=== PATIENT | female | born 1935 | race Caucasian/White ===

== ENCOUNTER 2018-02-20 10:00 | Outpatient (RCR) | payer MEDICARE, SELFPAY ==
--- NOTE | 2018-01-04 12:15 | HMH.PTOPEV ---
Rehab Outpatient Evaluation Rehab OP Evaluation Start: 01/04/18 11:30 Freq: Status: Active Protocol: Document 01/04/18 11:30 RMARSHALL (Rec: 01/04/18 12:14 [id number] Electronically Signed By Kodi Navas OT 01/04/18 11:30 Outpatient Therapy Subjective History Subjective History Pt is an 82 year old female who reports to therapy for intial evaluation to right shoulder. Pt reports her shoulder began bothering her in fall of 2016. At this time pt had therapy and reports improvement at the right shoulder. 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 This has required her to do a lot of lifting, pulling, and pushing. Pt's shoulder started hurting again around October. Pt does demonstrate with slight decreased AROM and strength at right shoulder. Pt will continue to be seen twice a week in order to address these deficits. Chief Complaint Pain Stiff Symptom Type Ache Throb Sharp Dull Symptoms Relieved By Nothing Symptoms Aggravated By Physical Activity Lifting Prior Functional Limitations None Current Functional Limitations Reaching Lifting Housework Dressing Driving Recreation Activity Symptom Description Intermittent Activity Dependent Level of pain today (0-10) 2 Pain scale - at its best (0-10) 1 Pain scale - at its worst (0-10) 6 Shoulder/Elbow Eval Shoulder Objective Measurements Shoulder ROM Right Shoulder ROM Limitations Muscle Tone Shoulder Abduction Active Range of 125 degrees Motion (degrees) Shoulder Flexion Active Range of Motion 130 degrees (degrees) Query Text: Shoulder External Rotation Active Range 60 degrees of Motion (degrees) Shoulder Internal Rotation Active Range
== END 2018-02-20 10:01 | disposition home or self-care (01) ==
LOC: OT 10:00
PROVIDERS: Family Provider Family Medicine; Visit Provider Family Medicine
DX: M25.511 Pain in right shoulder (principal)
CPT/HCPCS: 97014; 97110; 97166; G0283

== ENCOUNTER 2018-10-04 21:00 | Observation (INO) ==
[2018-10-04 21:26] LABS: Basophils # 0.1 K/mm3 (0-0.2); Basophils % 0.9 % (0.1-2.0); Eosinophils # 0.3 K/mm3 (0.0-0.4); Eosinophils % 2.9 % (0.1-12.0); Hematocrit 38.5 % (37.0-47.0); Hemoglobin 12.1 g/dL (12.2-16.2); Lymphocytes # 3.2 K/mm3 (0.7-4.5); Lymphocytes % 37.2 % (10-50); Mean Corpuscular HGB Conc 31.5 g/dL (31.8-35.4); Mean Corpuscular Hemoglobin 30.5 pg (27.0-31.2); Mean Corpuscular Volume 96.9 fl (81-99); Mean Platelet Volume 6.9 fl (7.4-10.4); Monocytes # 0.7 K/mm3 (0.1-1.0); Neutrophils # 4.3 K/mm3 (1.8-7.8); Platelet Count 481 K/mm3 (142-424); Red Blood Count 3.97 M/mm3 (4.20-5.40); Red Cell Distribution Width 13.4 % (11.5-17.5); White Blood Count 8.5 K/mm3 (4.8-10.8)
[2018-10-04 21:45] LABS: Alanine Aminotransferase 36 U/L (12-78); Albumin Level 3.7 gm/dL (3.4-5.0); Alkaline Phosphatase 80 U/L (46-116); Anion Gap 10.4 mEq/L (5-15); Aspartate Amino Transferase 27 U/L (15-37); Bilirubin,Total 0.2 mg/dL (0.2-1.0); Blood Urea Nitrogen 23 mg/dL (7-18); Calcium 9.2 mg/dL (8.5-10.1); Carbon Dioxide 30 mmol/L (21.0-32.0); Chloride 100 mmol/L (98-107); Globulin 3.8 gm/dl (1.3-3.2); Glucose 74 mg/dL (74-106); Potassium 3.4 mmoL/L (3.5-5.1); Sodium 137 mmol/L (136-145); Total Protein,Serum 7.5 gm/dL (6.4-8.2)
--- NOTE | 2018-10-04 22:22 | Emergency Department Note ---
ED Disposition Clinical Impression: Renal insufficiency Syncope Qualifiers: Syncope type: unspecified Qualified Code(s): R55 - Syncope and collapse Chest pain Qualifiers: Chest pain type: precordial pain Qualified Code(s): R07.2 - Precordial pain Disposition: Admitted as Observation Condition on Discharge: Good - Critical Care Critical Care Time: No Attestation: On 10/04/18, the high probability of a clinically significant, sudden or life threatening deterioration of the following system(s) required my full and direct attention, intervention and personal management. The time I documented below is in addition to time spent performing reported procedures but includes the following listed in this critical care notation. Medical Decision Making - Medical Records Medical records reviewed: Yes: I reviewed the patient's medical records. - Duy Inquiry Pt receiving controlled substance: No Vital Signs: 10/04/18 21:00 10/04/18 22:28 Temperature 97.9 F Temperature Source Oral Pulse Rate [Right] 68 64 Respiratory Rate 94 H 20 Blood Pressure [Right Arm] 145/71 H 131/68 Blood Pressure Mean [Right Arm] 95 89 02 Sat by Pulse Oximetry 95 98 Oxygen Delivery Method Room Air - Lab Data Lab results reviewed: Yes: I reviewed the patient's lab results. Lab Results 10/04/18 21:13: WBC 8.5, RBC 3.97 L, Hgb 12.1 L, Hct 38.5, MCV 96.9, MCH 30.5, MCHC 31.5 L, RDW 13.4, Plt Count 481 H, MPV 6.9 L, Neut % (Auto) 51.0, Lymph % (Auto) 37.2, [place] % (Auto) 8.0, Eos % (Auto) 2.9, Baso % (Auto) 0.9, Neut # (Auto) 4.3, Lymph # (Auto) 3.2, [place] # (Auto) 0.7, Eos # (Auto) 0.3, Baso # (Auto) 0.1 10/04/18 21:13: Sodium 137, Potassium 3.4 L, Chloride 100, Carbon Dioxide 30, Anion Gap 10.4, BUN 23 H, Creatinine 1.22 H, Estimated Creat Clear 36, Estimated GFR 42 L, Est GFR ( Amer) 51 L, Glucose 74, Calcium 9.2, Total Bilirubin 0.2, AST 27, ALT 36, Alkaline Phosphatase 80, Troponin I < 0.02, Total Protein 7.5, Albumin 3.7, Globulin 3.8 H, Albumin/Globulin Ratio 1.0 L Result diagrams: 10/04/18 21:13 10/04/18 21:13 Orders (Tests/Meds): ED MEDICATIONS Generic Name Dose Route Start Last Admin Trade Name Freq PRN Reason Stop Dose Admin Sodium Chloride 10 ml 10/04/18 21:13 Saline Flush 10ml Syringe IV 11/03/18 21:12 NEEDED PRN Maintain IV Site ORDERS Category Date Time Status CT cervical spine wo con Stat Cat Scan 10/04/18 21:[address] head/brain wo con Stat Cat Scan 10/04/18 21:13 Taken XR chest 2V Stat Exams 10/04/18 21:13 Taken Urinalysis and Microscopic Stat Lab 10/04/18 21:13 Ordered 12-lead EKG Request [ECG Request by /Danyelle] Stat Y 10/04/18 21:14 Ordered - Radiology Data #1 Image(s): Chest Image Reviewed: Yes I reviewed the patient's radiology image Preliminary Findings: Normal/NAD - CT Data CT Scan: Head, C-Spine Time Received: 22:[address] Reviewed: Yes: I have viewed the radiologist's interpretation Preliminary Findings: No Fracture Seen - ECG Data Tracing #1 Normal Sinus Rhythm: Yes Ischemic changes: non-specific ST-T wave changes - Physician Consults Physician Consulted: ariadna Reason -: Admission Syncope HPI - General Chief Complaint: Syncope Stated Complaint: Syncope Time Seen by Provider: 10/04/18 21:30 Mode of Arrival: EMS Source of Information: Patient, Relative, EMS, Medical Record Limitations: No Limitations Description of Symptoms (Recalled from ER Triage Doc. by RN): Pt brought in per EMS for syncopal episode, pt states she doesnt remember what happened, states she went to stand up and became dizzy and passed out. Pt c/o "chest pressure" on the left side of her chest that she felt after she woke up. Pt denies hitting her head. Denies any other s/s. - History of Present Illness HPI narrative: pt had been doing ok and upon standing at sikh had pressure lt sided chest pain and near syncope x 3 with no sz- no def palpitation complaint: almost passed out Onset (ago): hour(s) Prodromal symptoms: chest pain Witnessed: yes - by bystander Context: standing up Current symptoms: chest pain Treatments prior to arrival: none - Related Data Home Medications Medication Instructions Recorded Confirmed Levothyroxine Sodium 25 mcg PO DAILY 10/04/18 10/04/18 [Levothyroxine 25mcg (0.025mg) Tab] Losartan Potassium 50 mg PO DAILY 10/04/18 10/04/18 dilTIAZem HCl [Diltiazem 180mg 180 mg PO DAILY 10/04/18 10/04/18 24Hr ER Cap] hydroCHLOROthiazide [HCTZ 25mg 25 mg PO DAILY 10/04/18 10/04/18 tab] Allergies Allergy/AdvReac Type Severity Reaction Status Date / Time MORPHINE Allergy Mild I-ITCHING Uncoded 08/30/17 14:32 [facility] History - Hepatitis A Screen Drug use history?: No High risk sexual behaviors?: No History of sexually transmitted infection?: No Currently employed?: No Childcare worker?: No Do you have indoor plumbing?: Yes Do you have electricity?: Yes Attestation statement:: This patient has been screened for Hepatitis A risk factors. I have reviewed the patient's past medical history: Yes Medical History: Denies:: Diabetes Mellitus Type 1, Diabetes Mellitus Type 2 - Social History Smoking Status: Never smoker Alcohol Intake: never Occupational Status: retired - Psychiatric History Expresses thoughts of harming self/others: None Suicide Plan Description: No Plan ROS Obtained: Yes All systems reviewed & no additional complaints - Constitutional Constitutional: Denies fever(s) - Eyes Eyes: Denies change in vision - ENT Ears, Nose, Mouth, and Throat: Denies sore throat - Cardiovascular Cardiovascular: Reports chest pain, Denies dyspnea, Denies radiating jaw, neck or arm pain - Respiratory Respiratory: No cough - Gastrointestinal Gastrointestingal: Denies: abdominal pain - Genitourinary Female Genitourinary: Denies hematuria - Musculoskeletal Musculoskeletal: Denies back pain, Denies neck pain - Integumentary/Breasts Skin/Breast: Denies rash - Neurologic Neurologic: Denies abnormal speech, Denies seizure-like activity, Reports syncope Physical Exam - General General appearance: alert, in no apparent distress - Head Head exam: normocephalic - Eye Eye exam: Present: PERRL, EOMI - ENT ENT exam: Present: mucous membranes dry - Neck Neck exam: Present: trachea midline, other (no bruit) - Respiratory Respiratory exam: Present: normal lung sounds bilaterally - Cardiovascular Cardiovascular exam: Present: regular rate, systolic murmur, +S4 - Abdominal Exam Abdominal exam: Present: soft - Extremities Exam Extremities exam: Present: full ROM - Neurological Exam Neurological exam: Present: alert, oriented X3, CN II-XII intact - Psychiatric Psychiatric exam: Absent: anxious - Skin Skin exam: Absent: rash
[2018-10-05 05:05] LABS: Basophils # 0.1 K/mm3 (0-0.2); Basophils % 0.8 % (0.1-2.0); Eosinophils # 0.2 K/mm3 (0.0-0.4); Eosinophils % 1.7 % (0.1-12.0); Hematocrit 35.4 % (37.0-47.0); Hemoglobin 11.3 g/dL (12.2-16.2); Lymphocytes # 2.3 K/mm3 (0.7-4.5); Lymphocytes % 25.2 % (10-50); Mean Corpuscular HGB Conc 31.9 g/dL (31.8-35.4); Mean Corpuscular Hemoglobin 30.1 pg (27.0-31.2); Mean Corpuscular Volume 94.3 fl (81-99); Mean Platelet Volume 7.3 fl (7.4-10.4); Monocytes # 0.5 K/mm3 (0.1-1.0); Monocytes % 5.4 % (1.7-9.3); Neutrophils # 6.1 K/mm3 (1.8-7.8); Neutrophils % 66.9 % (37.0-80.0); Platelet Count 422 K/mm3 (142-424); Red Blood Count 3.75 M/mm3 (4.20-5.40); Red Cell Distribution Width 13.3 % (11.5-17.5); White Blood Count 9.1 K/mm3 (4.8-10.8)
[2018-10-05 05:17] LABS: Anion Gap 11.6 mEq/L (5-15); Chol/HDL Ratio 3.6 (1-3.5); Potassium 3.6 mmoL/L (3.5-5.1)
--- NOTE | 2018-10-05 07:43 | Pharmacy Consult Notes ---
[facility] Pharmacy VTE Monitoring - Patient Demographics Admission date: 10/05/18 Report Date: 10/05/18 Time: 07:43 Allergies/Adverse Reactions: Patient Allergies MORPHINE Allergy (Mild, Uncoded 08/30/17 14:32) I-ITCHING Height: 1.68 m Weight: 62.142 kg Patient Problems: Current Active Problems Syncope (Acute) Chest pain (Acute) Renal insufficiency (Acute) - VTE Risk Labs: VTE Related Lab Results Hgb 11.3 g/dL (12.2-16.2) L 10/05/18 04:50 Hct 35.4 % (37.0-47.0) L 10/05/18 04:50 Plt Count 422 K/mm3 (142-424) 10/05/18 04:50 BUN 21 mg/dL (7-18) H 10/05/18 04:50 Creatinine 0.79 mg/dL (0.55-1.02) D 10/05/18 04:50 Estimated Creat Clear 44 mL/min (50-200) 10/05/18 04:50 VTE Risk Level: Low Risk Clinical Trial Participant: No - Prophylaxis VTE Prophylaxis Ordered?: Yes Types of VTE Prophylaxis: TEDS Knee High Location of Applied Device: Not Applicable
--- NOTE | 2018-10-05 08:38 | History & Physical Report ---
*Admission Date: 10/05/18 <Bonnie Pride 10/05/18 08:44> *Chief complaint: syncope <Bonnie Pride 10/05/18 08:44> *History of present illness: Ms. Bang is an 82-year-old female with a history of hypertension, hyperlipidemia, peptic ulcer disease, Amanda's esophagus, and Raynaud's syndrome. She states she was praying at jainism yesterday and all at once felt a little dizzy. She states she grabbed the pew and then had a syncopal episode. Family members state that she was in and out of consciousness for approximately 10 minutes. She states when the ambulance arrived she was diaphoretic and had some mild chest pressure on the left side. She denies any shortness of air or chest pain. She was brought to the emergency room for further evaluation and treatment and was admitted for monitoring overnight and a cardiology consult. This morning she states she feels fine and has had no further syncopal episodes. Her dizziness has also resolved and she has had no further chest pressure. <Bonnie Pride 10/05/18 08:44> [facility] History Medical History: Reports:: Hyperlipidemia, Hypertension Denies:: Cancer, Diabetes Mellitus Type 1, Diabetes Mellitus Type 2, MRSA <Bonnie Pride 10/05/18 08:44> Have you ever received a pneumonia vaccine?: No <Bonnie Pride 10/05/18 08:44> Have you received a flu vaccine this season?: Yes <Bonnie Pride 10/05/18 08:44> Other Medical History: Reports: Arthritis (fingers), Cataracts (Bilat), Other (PUD, Hiatal hernia, Barretts esophagus, Raynaud's syndrome) <Bonnie Pride 10/05/18 08:44> Laterality Cases: Bilateral: Cataract <Bonnie Pride 10/05/18 08:44> Other Surgeries: Yes: Appendectomy, Cardiac Catheterization, Cholecystectomy, EGD, Hernia Repair, Hysterectomy-Partial <Bonnie Pride 10/05/18 08:44> Amputation: No <Bonnie Pride 10/05/18 08:44> - *Social History Smoking Status: Never smoker <oBnnie Pride 10/05/18 08:44> Alcohol Intake: never <Bonnie Pride 10/05/18 08:44> Occupational Status: retired <Bonnie Pride 10/05/18 08:44> Travel in the last 8 weeks: None <Bonnie Prdie 10/05/18 08:44> - Psychiatric History Expresses thoughts of harming self/others: None <Bonnie Pride 10/05/18 08:44> Suicide Plan Description: No Plan <Bonnie Pride 10/05/18 08:44> *Family Hx:: Cancer, Coronary Artery Disease, Hyperlipidemia, Hypertension <Bonnie Pride 10/05/18 08:44> Review of Systems - Constitutional Reports excessive sweating, Reports weakness <Bonnie Pride 10/05/18 08:44> - Eyes Denies blurry vision, Denies double vision <Bonnie Pride 10/05/18 08:44> - ENT Denies nasal congestion, Denies sore throat <Bonnie Pride 10/05/18 08:44> - *Cardiovascular Reports chest pain (pressure on the left side), Reports excessive sweating, Reports lightheadedness, Denies shortness of breath, Denies rapid, pounding, or irregular heartbeat <Bonnie Pride 10/05/18 08:44> - *Respiratory Denies cough, Denies shortness of breath <Bonnie Pride 10/05/18 08:44> - *Gastrointestinal Denies abdominal pain, Denies loose stools, Denies nausea, Denies vomiting <Bonnie Pride 10/05/18 08:44> - *Genitourinary Denies difficulty urinating, Denies painful urination <Bonnie Pride 10/05/18 08:44> - *Musculoskeletal Denies joint pain, Denies muscle cramps <Bonnie Pride 10/05/18 08:44> - *Neurologic Reports fainting, Reports dizziness, Denies abnormal speech, Denies seizure-like activity <Bonnie Pride 10/05/18 08:44> Meds Home Medications Medication Instructions Recorded Confirmed Type Levothyroxine Sodium 25 mcg PO DAILY 10/04/18 10/04/18 History [Levothyroxine 25mcg (0.025mg) Tab] Losartan Potassium 50 mg PO DAILY 10/04/18 10/04/18 History Multivit with Calcium,Iron,Min 1 tab PO DAILY 10/04/18 10/04/18 History [Multiple Vitamins For Women] Multivitamin with Minerals [Hair, 1 each PO DAILY 10/04/18 10/04/18 History Skin and Nails] dilTIAZem HCl [Diltiazem 180mg 180 mg PO DAILY 10/04/18 10/04/18 History 24Hr ER Cap] Fluticasone Propionate 2 spr INHALATION DAILY 10/05/18 10/05/18 History <Jack Morelos - 10/05/18 17:49> Allergies Allergy/AdvReac Type Severity Reaction Status Date / Time morphine Allergy Mild ITCHING Verified 10/05/18 08:13 <Jack Morelos - 10/05/18 17:49> Exam Vital signs and Labs for Last 24 Hours: Temp Pulse Resp BP Pulse Ox 97.8 F 60 16 165/66 H 98 10/05/18 12:00 10/05/18 16:00 10/05/18 12:00 10/05/18 12:00 10/05/18 12:00 Laboratory Results - last 24 hr 10/04/18 21:13: WBC 8.5, RBC 3.97 L, Hgb 12.1 L, Hct 38.5, MCV 96.9, MCH 30.5, MCHC 31.5 L, RDW 13.4, Plt Count 481 H, MPV 6.9 L, Neut % (Auto) 51.0, Lymph % (Auto) 37.2, [place] % (Auto) 8.0, Eos % (Auto) 2.9, Baso % (Auto) 0.9, Neut # (Auto) 4.3, Lymph # (Auto) 3.2, [place] # (Auto) 0.7, Eos # (Auto) 0.3, Baso # (Auto) 0.1 10/04/18 21:13: Sodium 137, Potassium 3.4 L, Chloride 100, Carbon Dioxide 30, Anion Gap 10.4, BUN 23 H, Creatinine 1.22 H, Estimated Creat Clear 36, Estimated GFR 42 L, Est GFR ( Amer) 51 L, Glucose 74, Calcium 9.2, Total Bilirubin 0.2, AST 27, ALT 36, Alkaline Phosphatase 80, Troponin I < 0.02, Total Protein 7.5, Albumin 3.7, Globulin 3.8 H, Albumin/Globulin Ratio 1.0 L 10/05/18 01:45: Troponin I < 0.02 10/05/18 04:50: Troponin I < 0.02 10/05/18 04:50: WBC 9.1, RBC 3.75 L, Hgb 11.3 L, Hct 35.4 L, MCV 94.3, MCH 30.1, MCHC 31.9, RDW 13.3, Plt Count 422, MPV 7.3 L, Neut % (Auto) 66.9, Lymph % (Auto) 25.2, [place] % (Auto) 5.4, Eos % (Auto) 1.7, Baso % (Auto) 0.8, Neut # (Auto) 6.1, Lymph # (Auto) 2.3, [place] # (Auto) 0.5, Eos # (Auto) 0.2, Baso # (Auto) 0.1 10/05/18 04:50: Sodium 137, Potassium 3.6, Chloride 102, Carbon Dioxide 27, Anion Gap 11.6, BUN 21 H, Creatinine 0.79 D, Estimated Creat Clear 44, Estimated GFR 70, Est GFR ( Amer) 85 D, Glucose 102 D, Calcium 9.0, Magnesium 1.9, Triglycerides 49, Cholesterol 171, LDL Cholesterol 114, VLDL Cholesterol 10, HDL Cholesterol 47, Cholesterol/HDL Ratio 3.6 H <Jack Morelos - 10/05/18 17:49> Temp Pulse Resp BP Pulse Ox 97.0 F L 62 18 150/90 H 97 10/05/18 08:00 10/05/18 08:00 10/05/18 08:00 10/05/18 08:00 10/05/18 08:00 Laboratory Results - last 24 hr 10/04/18 21:13: WBC 8.5, RBC 3.97 L, Hgb 12.1 L, Hct 38.5, MCV 96.9, MCH 30.5, MCHC 31.5 L, RDW 13.4, Plt Count 481 H, MPV 6.9 L, Neut % (Auto) 51.0, Lymph % (Auto) 37.2, [place] % (Auto) 8.0, Eos % (Auto) 2.9, Baso % (Auto) 0.9, Neut # (Auto) 4.3, Lymph # (Auto) 3.2, [place] # (Auto) 0.7, Eos # (Auto) 0.3, Baso # (Auto) 0.1 10/04/18 21:13: Sodium 137, Potassium 3.4 L, Chloride 100, Carbon Dioxide 30, Anion Gap 10.4, BUN 23 H, Creatinine 1.22 H, Estimated Creat Clear 36, Estimated GFR 42 L, Est GFR ( Amer) 51 L, Glucose 74, Calcium 9.2, Total Bilirubin 0.2, AST 27, ALT 36, Alkaline Phosphatase 80, Troponin I < 0.02, Total Protein 7.5, Albumin 3.7, Globulin 3.8 H, Albumin/Globulin Ratio 1.0 L 10/05/18 01:45: Troponin I < 0.02 10/05/18 04:50: Troponin I < 0.02 10/05/18 04:50: WBC 9.1, RBC 3.75 L, Hgb 11.3 L, Hct 35.4 L, MCV 94.3, MCH 30.1, MCHC 31.9, RDW 13.3, Plt Count 422, MPV 7.3 L, Neut % (Auto) 66.9, Lymph % (Auto) 25.2, [place] % (Auto) 5.4, Eos % (Auto) 1.7, Baso % (Auto) 0.8, Neut # (Auto) 6.1, Lymph # (Auto) 2.3, [place] # (Auto) 0.5, Eos # (Auto) 0.2, Baso # (Auto) 0.1 10/05/18 04:50: Sodium 137, Potassium 3.6, Chloride 102, Carbon Dioxide 27, Anion Gap 11.6, BUN 21 H, Creatinine 0.79 D, Estimated Creat Clear 44, Estimated GFR 70, Est GFR ( Amer) 85 D, Glucose 102 D, Calcium 9.0, Magnesium 1.9, Triglycerides 49, Cholesterol 171, LDL Cholesterol 114, VLDL Cholesterol 10, HDL Cholesterol 47, Cholesterol/HDL Ratio 3.6 H <Bonnie Pride - 10/05/18 08:44> I & O for Last 24 hours: Intake & Output 01/22/19 01/23/19 01/24/19 01/25/19 11:59 11:59 11:59 11:59 Intake Total 340 / 340 240 / 240 Balance 340 / 340 240 / 240 Weight 137 lb <Jack Morelos - 10/05/18 17:49> Intake & Output 10/02/18 10/03/18 10/04/18 10/05/18 11:59 11:59 11:59 11:59 Intake Total 340 / 340 Balance 340 / 340 Weight 137 lb <Bonnie Pride 10/05/18 08:44> - Constitutional no acute distress <[facility] 10/05/18 08:44> - *Routine HEENT Exam Head: Present: normocephalic <[facility] 10/05/18 08:44> Eye: Present: EOMI, PERRL <Bonnie Pride 10/05/18 08:44> ENT: Present: mucous membranes moist <Bonnie Pride 10/05/18 08:44> - *Routine Neck Exam Present: supple. Absent: carotid bruit, lymphadenopathy <Bonnie Pride 10/05/18 08:44> - *Routine Respiratory Exam Present: CTA bilaterally <[facility] 10/05/18 08:44> - *Routine Cardiovascular Exam Present: RRR <[facility] 10/05/18 08:44> - *Routine Abdominal Exam Present: soft, normoactive bowel sounds. Absent: tenderness <ShannenBonnie 10/05/18 08:44> - *Routine Extremities Exam Absent: cyanosis, clubbing, edema <[facility] 10/05/18 08:44> - *Routine Skin Exam Present: warm. Absent: rash <[facility] 10/05/18 08:44> - *Routine Neurological Exam Present: alert, oriented X3, CN II-XII intact. Absent: sensory deficit, motor deficit <ShannenBonnie 10/05/18 08:44> H&P: Result - Impressions CXR - Borderline cardiomegaly. No change with no acute finding Head CT - No acute intracranial findings CT spine - No acute fracture. Cervical spondylosis <Bonnie Pride - 10/05/18 08:44> Assessment and Plan (1) Syncope Current visit: Yes Status: Acute Qualifiers: Syncope type: unspecified Qualified Code(s): R55 - Syncope and collapse Category: Medical Code(s): R55 - Syncope and collapse (2) Renal insufficiency Current visit: Yes Status: Acute Category: Medical Code(s): N28.9 - Disorder of kidney and ureter, unspecified (3) Chest pain Current visit: Yes Status: Acute Qualifiers: Chest pain type: precordial pain Qualified Code(s): R07.2 - Precordial pain Category: Medical Code(s): R07.9 - Chest pain, unspecified (4) Hypertension Current visit: Yes Status: Chronic Category: Medical Code(s): I10 - Essential (primary) hypertension (5) Hyperlipidemia Current visit: Yes Status: Chronic Category: Medical Code(s): E78.5 - Hyperlipidemia, unspecified (6) Raynauds syndrome Current visit: Yes Status: Chronic Category: Medical Code(s): I73.00 - Raynaud's syndrome without gangrene <Bonnie Pride - 10/05/18 08:35> (1) Syncope Current visit: Yes Status: Acute Qualifiers: Syncope type: unspecified Qualified Code(s): R55 - Syncope and collapse Category: Medical Code(s): R55 - Syncope and collapse (2) Renal insufficiency Current visit: Yes Status: Acute Category: Medical Code(s): N28.9 - Disorder of kidney and ureter, unspecified (3) Chest pain Current visit: Yes Status: Acute Qualifiers: Chest pain type: precordial pain Qualified Code(s): R07.2 - Precordial pain Category: Medical Code(s): R07.9 - Chest pain, unspecified (4) Hypertension Current visit: Yes Status: Chronic Category: Medical Code(s): I10 - Essential (primary) hypertension (5) Hyperlipidemia Current visit: Yes Status: Chronic Category: Medical Code(s): E78.5 - Hyperlipidemia, unspecified (6) Raynauds syndrome Current visit: Yes Status: Chronic Category: Medical Code(s): I73.00 - Raynaud's syndrome without gangrene <Jack Morelos - 10/05/18 17:49> - Assessment and plan all Dx Assessment and Plan for all problems:: Concur with above assessment and plan. Will await echo, carotid US and cardiology consult. If work up is unremarkable, can probably discharge home later today. <Jack Morelos - 10/05/18 17:49> Awaiting echo report. We will get a carotid ultrasound. Cardiology has been consulted. <Bonnie Pride - 10/05/18 08:44>
--- NOTE | 2018-10-05 09:49 | Carotid Imaging Report ---
"Cerebrovascular Exam Indications: 780.2 Syncope and collapse. IMPRESSIONS 1. The bilateral vertebral arteries are patent with normal antegrade flow. 2. Study suggests 20-49% stenosis involving the right internal carotid artery. 3. Study suggests 20-49% stenosis involving the left internal carotid artery. History: Risk factors: Hypertension. Carotid duplex study. Complete study and Doppler flow study including spectral analysis, color and estevez scale imaging. Height: Height: 167.6cm. Height: 66in. Weight: Weight: 62.1kg. Weight: 136.7lb. Body mass index: BMI: 22.1kg/m^2. Body surface area: BSA: 1.7m^2. Location: Bedside. Patient status: Inpatient. Tables: Arterial flow: + +--------+--------+ |Location |V sys |V ed | + +--------+--------+ |Right CCA - proximal|65.2cm/s|11cm/s | + +--------+--------+ |Right CCA - distal |62.1cm/s|11.8cm/s| + +--------+--------+ |Right ECA |116cm/s |11cm/s | + +--------+--------+ |Right ICA - proximal|78.6cm/s|11.8cm/s| + +--------+--------+ |Right ICA - mid |56.6cm/s|12.6cm/s| + +--------+--------+ |Right ICA - distal |105cm/s |11cm/s | + +--------+--------+ |Right vertebral |77cm/s |12.6cm/s| + +--------+--------+ |Left CCA - proximal |76.2cm/s|12.6cm/s| + +--------+--------+ |Left CCA - distal |67.6cm/s|11.8cm/s| + +--------+--------+ |Left ECA |87.2cm/s|11.8cm/s| + +--------+--------+ |Left ICA - proximal |81.7cm/s|12.6cm/s| + +--------+--------+ |Left ICA - mid |53.4cm/s|14.1cm/s| + +--------+--------+ |Left ICA - distal |90.4cm/s|20.4cm/s| + +--------+--------+ |Left vertebral |42.2cm/s|7.4cm/s | + +--------+--------+ Velocity ratios: + + + + + + | |Right, V sys|Right, V ed|Left, V sys|Left, V ed| + + + + + + |Max ICA/dist CCA|1.69 |1.07 |1.34 |1.73 | + + + + + + (Report amended ) Electronically signed by: Didier Christopher [id number]"
--- NOTE | 2018-10-05 10:38 | Consult Report ---
History of Present Illness Consult date: 10/05/18 Requesting physician: Jack Morelos Chief complaint: Syncope Additional Medical History:: 1. HTN 2. Remote History of GI bleed felt secondary to ASA use 3. Raynaud's Syndrome 4. Hypothyroidism, on supplement 5. Syncope, 09/2018 A. [place] secondary to mild dehydration and orthostatic BP drop after prolonged sitting B. Echo, moderate Aortic insufficiency without LV enlargement. Normal LV function. History of present illness: Ms. Bang is an 82-year-old female with a history of hypertension, hyperlipidemia, peptic ulcer disease, Amanda's esophagus, and Raynaud's syndrome. She states she was praying at [employer] yesterday and all at once felt a little dizzy. She states she grabbed the pew and then had a syncopal episode. Family members state that she was in and out of consciousness for approximately 10 minutes. She states when the ambulance arrived she was diaphoretic and had some mild chest pressure on the left side. She denies any shortness of air or chest pain. She was brought to the emergency room for further evaluation and treatment and was admitted for monitoring overnight and a cardiology consult. This morning she states she feels fine and has had no further syncopal episodes. Her dizziness has also resolved and she has had no further chest pressure. The above per Bonnie Pride PA-C for Dr. Morelos. Patient regularly exercises 3 times a week including 1/2-hour on a treadmill which she had done yesterday morning without complaint. Patient is very active with no exertional symptoms. She denies diabetes or history of tobacco use. She does have one brother who has had coronary stents. EKG is sinus rhythm with no acute ST segment changes. Troponins returned normal x3. Telemetry has shown no arrhythmias. [facility] History Medical History: Reports:: Hyperlipidemia, Hypertension Denies:: Cancer, Diabetes Mellitus Type 1, Diabetes Mellitus Type 2, MRSA Have you ever received a pneumonia vaccine?: No Have you received a flu vaccine this season?: Yes Other Medical History: Reports: Arthritis (fingers), Cataracts (Bilat), Other (PUD, Hiatal hernia, Barretts esophagus, Raynaud's syndrome) Laterality Cases: Bilateral: Cataract Other Surgeries: Yes: Appendectomy, Cardiac Catheterization, Cholecystectomy, EGD, Hernia Repair, Hysterectomy-Partial Amputation: No - *Social History Smoking Status: Never smoker Alcohol Intake: never Occupational Status: retired Travel in the last 8 weeks: None - Psychiatric History Expresses thoughts of harming self/others: None Suicide Plan Description: No Plan *Family Hx:: Cancer, Coronary Artery Disease, Hyperlipidemia, Hypertension Meds Home Medications Medication Instructions Recorded Confirmed Type Levothyroxine Sodium 25 mcg PO DAILY 10/04/18 10/04/18 History [Levothyroxine 25mcg (0.025mg) Tab] Losartan Potassium 50 mg PO DAILY 10/04/18 10/04/18 History Multivit with Calcium,Iron,Min 1 tab PO DAILY 10/04/18 10/04/18 History [Multiple Vitamins For Women] Multivitamin with Minerals [Hair, 1 each PO DAILY 10/04/18 10/04/18 History Skin and Nails] dilTIAZem HCl [Diltiazem 180mg 180 mg PO DAILY 10/04/18 10/04/18 History 24Hr ER Cap] hydroCHLOROthiazide [HCTZ 25mg 25 mg PO DAILY 10/04/18 10/04/18 History tab] Fluticasone Propionate 2 spr INHALATION DAILY 10/05/18 10/05/18 History Allergies Allergy/AdvReac Type Severity Reaction Status Date / Time morphine Allergy Mild ITCHING Verified 10/05/18 08:13 Review of Systems - *Cardiovascular Reports chest pain, Reports fainting - *Respiratory Denies shortness of breath - *Gastrointestinal Denies abdominal pain, Denies loose stools, Denies nausea, Denies vomiting - *Genitourinary Denies blood in urine - *Neurologic Reports fainting, Reports dizziness, Reports weakness, Denies abnormal speech, Denies seizure-like activity Exam Vital signs and Labs for Last 24 Hours: Temp Pulse Resp BP Pulse Ox 97.0 F L 62 18 150/90 H 97 10/05/18 08:00 10/05/18 08:00 10/05/18 08:00 10/05/18 08:00 10/05/18 08:00 Laboratory Results - last 24 hr 10/04/18 21:13: WBC 8.5, RBC 3.97 L, Hgb 12.1 L, Hct 38.5, MCV 96.9, MCH 30.5, MCHC 31.5 L, RDW 13.4, Plt Count 481 H, MPV 6.9 L, Neut % (Auto) 51.0, Lymph % (Auto) 37.2, Gordon % (Auto) 8.0, Eos % (Auto) 2.9, Baso % (Auto) 0.9, Neut # (Auto) 4.3, Lymph # (Auto) 3.2, Gordon # (Auto) 0.7, Eos # (Auto) 0.3, Baso # (Aut o) 0.1 10/04/18 21:13: Sodium 137, Potassium 3.4 L, Chloride 100, Carbon Dioxide 30, Anion Gap 10.4, BUN 23 H, Creatinine 1.22 H, Estimated Creat Clear 36, Estimated GFR 42 L, Est GFR ( Amer) 51 L, Glucose 74, Calcium 9.2, Total Bilirubin 0.2, AST 27, ALT 36, Alkaline Phosphatase 80, Troponin I < 0.02, Total Protein 7.5, Albumin 3.7, Globulin 3.8 H, Albumin/Globulin Ratio 1.0 L 10/05/18 01:45: Troponin I < 0.02 10/05/18 04:50: Troponin I < 0.02 10/05/18 04:50: WBC 9.1, RBC 3.75 L, Hgb 11.3 L, Hct 35.4 L, MCV 94.3, MCH 30.1, MCHC 31.9, RDW 13.3, Plt Count 422, MPV 7.3 L, Neut % (Auto) 66.9, Lymph % (Auto) 25.2, Gordon % (Auto) 5.4, Eos % (Auto) 1.7, Baso % (Auto) 0.8, Neut # (Auto) 6.1, Lymph # (Auto) 2.3, Gordon # (Auto) 0.5, Eos # (Auto) 0.2, Baso # (Auto) 0.1 10/05/18 04:50: Sodium 137, Potassium 3.6, Chloride 102, Carbon Dioxide 27, Anion Gap 11.6, BUN 21 H, Creatinine 0.79 D, Estimated Creat Clear 44, Estimated GFR 70, Est GFR ( Amer) 85 D, Glucose 102 D, Calcium 9.0, Magnesium 1.9, Triglycerides 49, Cholesterol 171, LDL Cholesterol 114, VLDL Cholesterol 10, HDL Cholesterol 47, Cholesterol/HDL Ratio 3.6 H I & O for Last 24 hours: Intake & Output 10/02/18 10/03/18 10/04/18 10/05/18 11:59 11:59 11:59 11:59 Intake Total 340 / 340 Balance 340 / 340 Weight 137 lb - *Routine Neck Exam Present: supple. Absent: JVD, carotid bruit - *Routine Respiratory Exam Present: CTA bilaterally. Absent: accessory muscle use, rales, rhonchi, wheezes - *Routine Cardiovascular Exam Present: RRR. Absent: murmur, gallop, rubs - *Routine Abdominal Exam Present: soft. Absent: tenderness, distended, guarding - *Routine Extremities Exam Absent: edema, calf tenderness - *Routine Neurological Exam Present: alert, oriented X3, moving all extremities Assessment and Plan (1) Syncope Current visit: Yes Status: Acute Qualifiers: Syncope type: unspecified Qualified Code(s): R55 - Syncope and collapse Category: Medical Code(s): R55 - Syncope and collapse (2) Renal insufficiency Current visit: Yes Status: Acute Category: Medical Code(s): N28.9 - Disorder of kidney and ureter, unspecified (3) Chest pain Current visit: Yes Status: Acute Qualifiers: Chest pain type: precordial pain Qualified Code(s): R07.2 - Precordial pain Category: Medical Code(s): R07.9 - Chest pain, unspecified (4) Hypertension Current visit: Yes Status: Chronic Category: Medical Code(s): I10 - Essential (primary) hypertension (5) Hyperlipidemia Current visit: Yes Status: Chronic Category: Medical Code(s): E78.5 - Hyperlipidemia, unspecified (6) Raynauds syndrome Current visit: Yes Status: Chronic Category: Medical Code(s): I73.00 - Raynaud's syndrome without gangrene - Assessment and plan all Dx Assessment and Plan for all problems:: 1. Echo has been obtained with results showing moderate aortic insufficiency and normal LV size and function. 2. Symptoms sound orthostatic due to mild dehydration. 3. OK for discharge home from Cardiology standpoint. 4. Recommend 48 hr holter monitor and follow up with us in one week. 5. continue home meds.
--- NOTE | 2018-10-05 16:50 | Cardiology Report ---
PROCEDURE: 2-D M-mode and color Doppler study INDICATIONS FOR THE TEST: Chest pain + COPD Heart Murmur+ Tobacco Smoking Palpitations Fatigue Syncope+ Edema Hypertension+Diabetes Mellitus Rheumatic Fever SOB MOHR Obesity Hyperlipidemia Family History HD Additional History PATIENT INFORMATION HEIGHT: 66 WEIGHT:137 GENDER: Female B/P:138/48 2-D/M-MODE INTERPRETATION: 2-D MEASUREMENTS OBSERVED VALUES IN CMS Right Ventricular Dimension (RVDd) 1.6 Interventricular Septum (Thickness)(IVsd) 1.6 Left Ventricular Internal Dimensions(LVIDd) 5.7 Left Ventricular Posterior Wall (Thickness)(LVPWd) 0.8 Aortic Root 2.5 Aortic Cusp Separation 1.6 Left Atrial Dimensions (LAD) 4.1 2D 1. Left atrium is mildly enlarged, left ventricle is normal size, mild concentric left ventricular hypertrophy, visually estimated ejection fraction 55% with no regional wall motion abnormality. 2. The right atrium and right ventricle are normal size and contractility. 3. The aortic valve is thickened and calcified leaflet continue to display mobility. 4. The mitral and tricuspid valve leaflets are minimally thickened. 5. The pulmonic valve is poorly visualized. 6. No significant pericardial effusion noted. DOPPLER INTERROGATION: Doppler interrogation of the aortic, mitral and tricuspid valvular presence of moderate aortic, mild mitral and tricuspid regurgitation, tricuspid regurgitation jet velocity is inadequate for calculation of the right ventricular systolic pressure. Grade 1 diastolic dysfunction seen without tissue Doppler evidence of raised left atrial pressure. CONCLUSION: 1. Mildly enlarged left atrium, normal left ventricular size, mild concentric left ventricular hypertrophy, visually estimated ejection fraction 55% with no regional wall motion abnormality, grade 1 diastolic dysfunction seen without tissue Doppler evidence of raised left atrial pressure. 2. Moderate aortic, mild mitral and tricuspid regurgitation 3. No significant pericardial effusion noted.
--- NOTE | 2018-10-05 17:58 | Progress Note ---
Internal Medicine - PN: Subj *Date: 10/05/18 *Time: 17:55 Interval history: No problems through the day today. Exam Vital signs and Labs for Last 24 Hours: Temp Pulse Resp BP Pulse Ox 97.8 F 60 16 165/66 H 98 10/05/18 12:00 10/05/18 16:00 10/05/18 12:00 10/05/18 12:00 10/05/18 12:00 Laboratory Results - last 24 hr 10/04/18 21:13: WBC 8.5, RBC 3.97 L, Hgb 12.1 L, Hct 38.5, MCV 96.9, MCH 30.5, MCHC 31.5 L, RDW 13.4, Plt Count 481 H, MPV 6.9 L, Neut % (Auto) 51.0, Lymph % (Auto) 37.2, Major % (Auto) 8.0, Eos % (Auto) 2.9, Baso % (Auto) 0.9, Neut # (Auto) 4.3, Lymph # (Auto) 3.2, Major # (Auto) 0.7, Eos # (Auto) 0.3, Baso # (Auto) 0.1 10/04/18 21:13: Sodium 137, Potassium 3.4 L, Chloride 100, Carbon Dioxide 30, Anion Gap 10.4, BUN 23 H, Creatinine 1.22 H, Estimated Creat Clear 36, Estimated GFR 42 L, Est GFR ( Amer) 51 L, Glucose 74, Calcium 9.2, Total Bilirubin 0.2, AST 27, ALT 36, Alkaline Phosphatase 80, Troponin I < 0.02, Total Protein 7.5, Albumin 3.7, Globulin 3.8 H, Albumin/Globulin Ratio 1.0 L 10/05/18 01:45: Troponin I < 0.02 10/05/18 04:50: Troponin I < 0.02 10/05/18 04:50: WBC 9.1, RBC 3.75 L, Hgb 11.3 L, Hct 35.4 L, MCV 94.3, MCH 30.1, MCHC 31.9, RDW 13.3, Plt Count 422, MPV 7.3 L, Neut % (Auto) 66.9, Lymph % (Auto) 25.2, Major % (Auto) 5.4, Eos % (Auto) 1.7, Baso % (Auto) 0.8, Neut # (Auto) 6.1, Lymph # (Auto) 2.3, Major # (Auto) 0.5, Eos # (Auto) 0.2, Baso # (Auto) 0.1 10/05/18 04:50: Sodium 137, Potassium 3.6, Chloride 102, Carbon Dioxide 27, Anion Gap 11.6, BUN 21 H, Creatinine 0.79 D, Estimated Creat Clear 44, Estimated GFR 70, Est GFR ( Amer) 85 D, Glucose 102 D, Calcium 9.0, Magnesium 1.9, Triglycerides 49, Cholesterol 171, LDL Cholesterol 114, VLDL Cholesterol 10, HDL Cholesterol 47, Cholesterol/HDL Ratio 3.6 H I & O for Last 24 hours: Intake & Output 10/03/18 10/04/18 10/05/18 10/06/18 11:59 11:59 11:59 11:59 Intake Total 340 / 340 240 / 240 Balance 340 / 340 240 / 240 Weight 137 lb Radiology Reports for the Last 24 Hours: ECHOCARDIOGERAM CONCLUSION: 1. Mildly enlarged left atrium, normal left ventricular size, mild concentric left ventricular hypertrophy, visually estimated ejection fraction 55% with no regional wall motion abnormality, grade 1 diastolic dysfunction seen without tissue Doppler evidence of raised left atrial pressure. 2. Moderate aortic, mild mitral and tricuspid regurgitation 3. No significant pericardial effusion noted. CAROTID DUPLEX IMPRESSIONS 1. The bilateral vertebral arteries are patent with normal antegrade flow. 2. Study suggests 20-49% stenosis involving the right internal carotid artery. 3. Study suggests 20-49% stenosis involving the left internal carotid artery. Assessment and Plan (1) Syncope Current visit: Yes Status: Acute Qualifiers: Syncope type: unspecified Qualified Code(s): R55 - Syncope and collapse Category: Medical Code(s): R55 - Syncope and collapse (2) Renal insufficiency Current visit: Yes Status: Acute Category: Medical Code(s): N28.9 - Disorder of kidney and ureter, unspecified (3) Chest pain Current visit: Yes Status: Acute Qualifiers: Chest pain type: precordial pain Qualified Code(s): R07.2 - Precordial pain Category: Medical Code(s): R07.9 - Chest pain, unspecified (4) Hypertension Current visit: Yes Status: Chronic Category: Medical Code(s): I10 - Essential (primary) hypertension (5) Hyperlipidemia Current visit: Yes Status: Chronic Category: Medical Code(s): E78.5 - Hyperlipidemia, unspecified (6) Raynauds syndrome Current visit: Yes Status: Chronic Category: Medical Code(s): I73.00 - Raynaud's syndrome without gangrene - Assessment and plan all Dx Assessment and Plan for all problems:: Labs, ECHO, Carotid and cardiology consult reviewed and discussed with patient and family. Likely etiology of syncope was vasovagal response to hypovolemia. Renal functions are back to normal with IV hydration. She is stable to discharge home and will arrange outpt Holter as recommended by cardiology.
--- NOTE | 2018-10-05 21:26 | Discharge Summary ---
General - General Admission date:: 10/04/18 <Jack Morelos - 10/12/18 18:11> 10/04/18 <Bonnie Pride - 10/05/18 21:27> Discharge date: 10/05/18 <Bonnie Pride - 10/05/18:27> HPI HPI: Ms. Bang is an 82-year-old female with a history of hypertension, hyperlipidemia, peptic ulcer disease, Amanda's esophagus, and Raynaud's syndrome. She states she was [facility] at [employer] yesterday and all at once felt a little dizzy. She states she grabbed the pew and then had a syncopal episode. Family members state that she was in and out of consciousness for approximately 10 minutes. She states when the ambulance arrived she was diaphoretic and had some mild chest pressure on the left side. She denies any shortness of air or chest pain. She was brought to the emergency room for further evaluation and treatment and was admitted for monitoring overnight and a cardiology consult. This morning she states she feels fine and has had no further syncopal episodes. Her dizziness has also resolved and she has had no further chest pressure. <Bonnie Pride - 10/05/18 21:> Hospital Course Hospital Course: Patient's chest x-ray showed borderline cardiomegaly with no acute findings. Her head CT showed nothing acute and her spinal CT showed no fracture. Her labs showed an elevated renal function. An echo and carotid ultrasound were ordered and cardiology was consulted. Cardiology saw the patient and felt her EKG showed normal sinus with no acute ST segment changes. Her troponins all returned normal and telemetry showed no arrhythmias. They reviewed her echo which showed moderate aortic insufficiency and a normal left ventricular size and function. They felt her symptoms were orthostatic due to mild dehydration and that she would be stable for discharge with a 48-hour Holter monitor. Her carotid Doppler showed 20-49% stenosis of the right and left carotid arteries. She had no problems throughout the rest of the day. Dr. Morelos felt the likely etiology of her syncope was a vasovagal response to hypovolemia. Her renal functions returned to normal with some IV hydration and she was stable to be discharged home. She will have an outpatient Holter monitor as recommended by cardiology. <Bonnie Pride - 10/05/18 21:27> Objective Vital signs: Temp Pulse Resp BP Pulse Ox 97.9 F 67 18 159/66 H 97 10/05/18 16:00 10/05/18 16:00 10/05/18 16:00 10/05/18 16:00 10/05/18 16:00 <Jack Morelos - 10/12/18 18:11> Temp Pulse Resp BP Pulse Ox 97.9 F 67 18 159/66 H 97 10/05/18 16:00 10/05/18 16:00 10/05/18 16:00 10/05/18 16:00 10/05/18 16:00 <Bonnie Pride - 10/05/18 21:27> Narrative: - Constitutional no acute distress - *Routine HEENT Exam Head: Present: normocephalic Eye: Present: EOMI, PERRL ENT: Present: mucous membranes moist - *Routine Neck Exam Present: supple. Absent: carotid bruit, lymphadenopathy - *Routine Respiratory Exam Present: CTA bilaterally - *Routine Cardiovascular Exam Present: RRR - *Routine Abdominal Exam Present: soft, normoactive bowel sounds. Absent: tenderness - *Routine Extremities Exam Absent: cyanosis, clubbing, edema - *Routine Skin Exam Present: warm. Absent: rash - *Routine Neurological Exam Present: alert, oriented X3, CN II-XII intact. Absent: sensory deficit, motor deficit <Bonnie Pride - 10/05/18 21:27> Results Labs on day of discharge: Labs from last 24 hours 10/05/18 10/05/18 10/05/18 04:50 04:50 04:50 WBC 9.1 RBC 3.75 L Hgb 11.3 L Hct 35.4 L MCV 94.3 MCH 30.1 MCHC 31.9 RDW 13.3 Plt Count 422 MPV 7.3 L Neut % (Auto) 66.9 Lymph % (Auto) 25.2 [place] % (Auto) 5.4 Eos % (Auto) 1.7 Baso % (Auto) 0.8 Neut # (Auto) 6.1 Lymph # (Auto) 2.3 [place] # (Auto) 0.5 Eos # (Auto) 0.2 Baso # (Auto) 0.1 Sodium 137 Potassium 3.6 Chloride 102 Carbon Dioxide 27 Anion Gap 11.6 BUN 21 H Creatinine 0.79 D Estimated Creat Clear 44 Estimated GFR 70 Est GFR ( Amer) 85 D Glucose 102 D Calcium 9.0 Magnesium 1.9 Total Bilirubin AST ALT Alkaline Phosphatase Troponin I < 0.02 Total Protein Albumin Globulin Albumin/Globulin Ratio Triglycerides 49 Cholesterol 171 LDL Cholesterol 114 VLDL Cholesterol 10 HDL Cholesterol 47 Cholesterol/HDL Ratio 3.6 H 10/05/18 10/04/18 10/04/18 01:45 21:13 21:13 WBC 8.5 RBC 3.97 L Hgb 12.1 L Hct 38.5 MCV 96.9 MCH 30.5 MCHC 31.5 L RDW 13.4 Plt Count 481 H MPV 6.9 L Neut % (Auto) 51.0 Lymph % (Auto) 37.2 [place] % (Auto) 8.0 Eos % (Auto) 2.9 Baso % (Auto) 0.9 Neut # (Auto) 4.3 Lymph # (Auto) 3.2 [place] # (Auto) 0.7 Eos # (Auto) 0.3 Baso # (Auto) 0.1 Sodium 137 Potassium 3.4 L Chloride 100 Carbon Dioxide 30 Anion Gap 10.4 BUN 23 H Creatinine 1.22 H Estimated Creat Clear 36 Estimated GFR 42 L Est GFR ( Amer) 51 L Glucose 74 Calcium 9.2 Magnesium Total Bilirubin 0.2 AST 27 ALT 36 Alkaline Phosphatase 80 Troponin I < 0.02 < 0.02 Total Protein 7.5 Albumin 3.7 Globulin 3.8 H Albumin/Globulin Ratio 1.0 L Triglycerides Cholesterol LDL Cholesterol VLDL Cholesterol HDL Cholesterol Cholesterol/HDL Ratio <Bonnie Pride - 10/05/18 21:27> DS: Diagnosis - Discharge Diagnosis (1) Syncope Status: Acute (2) Renal insufficiency Status: Acute (3) Chest pain Status: Acute (4) Hypertension Status: Chronic (5) Hyperlipidemia Status: Chronic (6) Raynauds syndrome Status: Chronic <Bonnie Pride - 10/05/18 21:21> (1) Syncope Status: Acute (2) Renal insufficiency Status: Acute (3) Chest pain Status: Acute (4) Hypertension Status: Chronic (5) Hyperlipidemia Status: Chronic (6) Raynauds syndrome Status: Chronic <Jack Morelos - 10/12/18 18:11> Discharge Plan - Patient Discharge Instructions ACTIVITY: Continue current activity <Bonnie Pride - 10/05/18 21:27> DIET: continue same diet <Bonnie Pride - 10/05/18 21:27> Additional Instructions: Return to [facility] for 48 hour Holter monitor, call [phone] and ask for the respiratory department to see if one is available. <Jack Morelos - 10/12/18 18:11> Patient Instructions: DI for Syncope in Adults (Fainting), High Blood Pressure <Jack Morelos - 10/12/18 18:11> Forms: <Jack Morelos - 10/12/18 18:11> - Follow up Plan Follow up with: Jack Morelos MD [Primary Care Provider] - 2 weeks Heladio Curiel MD [Staff Physician] - 1 week <Jack Morelos - 10/12/18 18:11> Disposition: Home, Self-Care <Jack Morelos - 10/12/18 18:11> Home Medications: Home Medications Medication Instructions Recorded Confirmed Type RX: Levothyroxine Sodium 25 mcg PO DAILY 10/04/18 10/04/18 History [Levothyroxine 25mcg (0.025mg) Tab] RX: Losartan Potassium 50 mg PO DAILY 10/04/18 10/04/18 History RX: Multivit with Calcium,Iron,Min 1 tab PO DAILY 10/04/18 10/04/18 History [Multiple Vitamins For Women] RX: Multivitamin with Minerals 1 each PO DAILY 10/04/18 10/04/18 History [Hair, Skin and Nails] RX: dilTIAZem HCl [Diltiazem 180mg 180 mg PO DAILY 10/04/18 10/04/18 History 24Hr ER Cap] RX: Fluticasone Propionate 2 spr INHALATION DAILY 10/05/18 10/05/18 History <Jack Morelos - 10/12/18 18:11> Prescriptions/Medication Reconciliation: Continue RX: Levothyroxine Sodium [Levothyroxine 25mcg (0.025mg) Tab] 25 mcg PO DAILY RX: dilTIAZem HCl [Diltiazem 180mg 24Hr ER Cap] 180 mg PO DAILY RX: Multivitamin with Minerals [Hair, Skin and Nails] 1 each PO DAILY RX: Multivit with Calcium,Iron,Min [Multiple Vitamins For Women] 1 tab PO DAILY RX: Losartan Potassium 50 mg PO DAILY RX: Fluticasone Propionate 2 spr INHALATION DAILY Discontinued RX: hydroCHLOROthiazide [HCTZ 25mg tab] 25 mg PO DAILY <Jack Morelos - 10/12/18 18:11> - Additional Information Additional Information: Concur with plan for discharge. <Jack Morelos - 10/12/18 18:11>
== END 2018-10-05 18:08 | disposition home or self-care (01) ==
LOC: ER 21:00 → 2ND 21:00
PROVIDERS: ADMIT Family Medicine; ATTEND Family Medicine
DX: Z87.19 Personal history of other diseases of the digestive system; I10 Essential (primary) hypertension; E78.5 Hyperlipidemia, unspecified; I51.7 Cardiomegaly; Z82.49 Family history of ischemic heart disease and other diseases of the circulatory system; R61 Generalized hyperhidrosis; R55 Syncope and collapse; I65.23 Occlusion and stenosis of bilateral carotid arteries; Z88.6 Allergy status to analgesic agent; N28.9 Disorder of kidney and ureter, unspecified; Z79.899 Other long term (current) drug therapy; R07.9 Chest pain, unspecified; I73.00 Raynaud's syndrome without gangrene; E86.0 Dehydration
CPT/HCPCS: 36415; 70450; 71020; 71046; 72125; 80048; 80053; 80061; 83735; 84484; 85025; 93005; 93306; 93880; 99284; G0378

== ENCOUNTER → 2018-10-06 15:26 | Outpatient (CLI) | payer MEDICARE, SELFPAY | PROVIDERS: PCP Family Medicine; Visit Provider Family Medicine | DX: R55 Syncope and collapse (principal) | CPT/HCPCS: 93225 ==

== ENCOUNTER → 2018-10-30 07:02 | Outpatient (CLI) | payer MEDICARE, SELFPAY ==
[2018-10-30 09:32] LABS: Anion Gap 11.3 mEq/L (5-15); Blood Urea Nitrogen 13 mg/dL (7-18); Calcium 9.6 mg/dL (8.5-10.1); Carbon Dioxide 30 mmol/L (21.0-32.0); Chloride 99 mmol/L (98-107); Creatinine,Serum 0.87 mg/dL (0.55-1.02); Estimated Glomerular Filt Rate 63 ml/min (>60); GFR (African American) 76 ML/MIN (>60); Glucose 83 mg/dL (74-106); Potassium 4.3 mmoL/L (3.5-5.1); Sodium 136 mmol/L (136-145)
== END ==
PROVIDERS: Visit Provider Urology
DX: E78.5 Hyperlipidemia, unspecified (principal); I10 Essential (primary) hypertension; N28.9 Disorder of kidney and ureter, unspecified; R55 Syncope and collapse
CPT/HCPCS: 36415; 80048

== ENCOUNTER → 2018-11-29 07:29 | Outpatient (CLI) | payer MEDICARE, SELFPAY ==
--- NOTE | 2018-11-29 07:31 | AS_ITS ---
Renal Arterial Duplex Indications: 405.91 Unspecified renovascular hypertension. IMPRESSIONS 1. 60% or greaterstenosis involving the left renal artery. Consider CTA for further evaluation 2. The right renal artery appears normal. History: Risk factors: Hypertension. Complete renal arterial duplex. Duplex scan and Doppler flow study including spectral analysis, color and estevez scale imaging. Height: Height: 167.6cm. Height: 66in. Weight: Weight: 62.1kg. Weight: 136.7lb. Body mass index: BMI: 22.1kg/m^2. Body surface area: BSA: 1.7m^2. Location: Vascular laboratory. Patient status: Outpatient. Tables: Arterial flow: + +--------+--------+ Location V sys V ed + +--------+--------+ Right renal - proximal 101cm/s 13.1cm/s + +--------+--------+ Right renal - mid 146cm/s 31.8cm/s + +--------+--------+ Right renal - distal 107cm/s 17.8cm/s + +--------+--------+ Left renal - proximal 123cm/s 14.1cm/s + +--------+--------+ Left renal - mid 102cm/s 10.9cm/s + +--------+--------+ Left renal - distal 53.9cm/s 10.5cm/s + +--------+--------+ Right renal-origin 78.5cm/s 13.8cm/s + +--------+--------+ Left renal-origin 218cm/s 26.2cm/s + +--------+--------+ Aorta-prox 83.9cm/s -------- + +--------+--------+ Renal anatomy: + +-----+------+ Left Right + +-----+------+ Long axis 9.2cm 10.3cm + +-----+------+ Short axis 4.9cm 7.3cm + +-----+------+ Cortical thickness 1cm 1.2cm + +-----+------+ Velocity ratios: + +-----+ V sys + +-----+ Right renal/aortic 1.7 + +-----+ Left renal/aortic 2.6 + +-----+ (Report amended ) Electronically signed by: Didier Christopher [id number]
== END ==
PROVIDERS: PCP Family Medicine; Visit Provider Urology
DX: I10 Essential (primary) hypertension (principal)
CPT/HCPCS: 93976

== ENCOUNTER → 2018-12-11 13:35 | Outpatient (CLI) | payer MEDICARE, SELFPAY ==
--- NOTE | 2018-12-11 13:42 | CT_ITS ---
CT angio abdomen CLINICAL INDICATION: Centimeters report ITS.REASON: renal artery stenosis ORDERING PHYSICIAN: Hannah Tse PATIENT AGE: 83 years COMPARISON: 2010 CT abdomen pelvis TECHNIQUE: Axial images obtained with sagittal and coronal reformats. All CT scans at the facility use one or more dose reduction, viz: automated exposure control, ma/kV adjustment per patient size (including targeted exams where dose is matched to indication, i.e. head), or iterative reconstruction technique. PROCEDURE: Oral Contrast: None IV Contrast: 100 cc Optiray 350 followed x 40 mL normal saline FINDINGS: Lower thorax: No acute finding ABDOMEN: Liver. No significant findingsPrevious cholecystectomy accounts for its the slightly generous common duct & slightly generous central intrahepatic biliary radicles-appearance unchanged 2011 . Pancreas appears stable since 2011 again noting the generous common duct through the head of the pancreas as well as upper normal caliber of the pancreatic duct at head of pancreas. A stable Small spleen. Unremarkable. Adrenals unremarkable. Hiatal hernia again noted There are some scattered air-fluid levels within the small bowel as well as some liquid stool right colon suspect reflecting mild ileus versus possibly minor early enteritis conceivably Kidneys/ureters: No masses. . No hydronephrosis. Right kidney.: Nearly 6 mm x 3 mm calculus nonobstructive calculus midportion right kidney. This is was present but increased slightly since 2011 CT. generous size extrarenal pelvis again noted and unchanged. Right ureter unremarkable down to the pelvis. Left kidney.: No calculi nor obstruction. Minimal extra renal pelvis. Left ureter unremarkable. Vascular evaluation/CTA Aorta. Diffuse atherosclerotic calcification. Normal caliber aorta with no dilatation.. Calcification progressively more pronounced into the distal aorta and becomes most pronounced at level of proximal iliacs arteries. There is [id number] stenosis at the right common iliac artery more so than left. Estimate of up to 25-30% % stenosis aortic bifurcation with 40--45% stenosis at right common iliac arteries and 30-35% % stenosis at left common iliac origin.. External iliac arteries unremarkable Renal arteries show no flow limiting stenosis. The right renal artery widely patent with excellent perfusion both kidneys. The left renal artery with scant minimal calcified plaque posteriorly at its origin-yields less than 10% stenosis origin left renal artery. The celiac artery and SMA are widely patent with only scant less than 10% stenosis at the proximal SMA due to soft and calcified plaque. IMPRESSION: 1. Renal arteries. ... Widely patent bilaterally. With excellent perfusion of both kidneys ... Left renal artery. Only scant plaque with less than 10% stenosis at its origin ... Right renal artery. Widely patent/ unremarkable ... Branches of renal arteries unremarkable as well. 2. Diffuse atherosclerotic calcification aorta. More pronounced infrarenal aorta & at aortic bifurcation , where there is mild stenosis.- Estimated up to 25-30% stenosis 3. Generous calcified plaque involving proximal common iliac arteries, yieldsMild/moderate stenosis at the origin of the both common iliac arteries bilaterally . Estimate up to 40-45 % stenosis right common iliac artery origin; and 30- 35 % stenosis left common iliac artery origin 4. Other incidental observations in body of report. .. 6 mm x 3 nonobstructing calculus midportion right kidney
[2018-12-11 14:15] LABS: Blood Urea Nitrogen 11 mg/dL (7-18); Creatinine,Serum 0.77 mg/dL (0.55-1.02); Estimated Glomerular Filt Rate 72 ml/min (>60); GFR (African American) 87 ML/MIN (>60)
== END ==
PROVIDERS: PCP Family Medicine; Visit Provider Urology
DX: E78.5 Hyperlipidemia, unspecified (principal); I10 Essential (primary) hypertension; I65.29 Occlusion and stenosis of unspecified carotid artery; I70.1 Atherosclerosis of renal artery; R94.31 Abnormal electrocardiogram [ECG] [EKG]
CPT/HCPCS: 36415; 74175; 82565; 84520; Q9967

== ENCOUNTER → 2019-02-26 07:51 | Outpatient (CLI) | payer MEDICARE, SELFPAY ==
[2019-02-26 11:14] LABS: Anion Gap 10.3 mEq/L (5-15); Blood Urea Nitrogen 13 mg/dL (7-18); Calcium 9.5 mg/dL (8.5-10.1); Carbon Dioxide 29 mmol/L (21.0-32.0); Chloride 102 mmol/L (98-107); Creatinine,Serum 0.77 mg/dL (0.55-1.02); Estimated Glomerular Filt Rate 72 ml/min (>60); GFR (African American) 87 ML/MIN (>60); Glucose 81 mg/dL (74-106); Potassium 4.3 mmoL/L (3.5-5.1); Sodium 137 mmol/L (136-145)
== END ==
PROVIDERS: Visit Provider Nurse Practitioner Family
DX: I10 Essential (primary) hypertension (principal)
CPT/HCPCS: 36415; 80048

== ENCOUNTER → 2019-08-22 07:12 | Outpatient (CLI) | payer MEDICARE, SELFPAY ==
[2019-08-22 09:50] LABS: Alanine Aminotransferase 32 U/L (12-78); Albumin Level 3.6 gm/dL (3.4-5.0); Albumin/Globulin Ratio 1.1 (1.1-1.8); Alkaline Phosphatase 92 U/L (46-116); Anion Gap 10.4 mEq/L (5-15); Aspartate Amino Transferase 28 U/L (15-37); Bilirubin,Total 0.3 mg/dL (0.2-1.0); Blood Urea Nitrogen 21 mg/dL (7-18); Calcium 9.3 mg/dL (8.5-10.1); Carbon Dioxide 30 mmol/L (21.0-32.0); Chloride 102 mmol/L (98-107); Chol/HDL Ratio 3.2 (1-3.5); Cholesterol 170 mg/dL (140-200); Creatinine,Serum 0.93 mg/dL (0.55-1.02); Estimated Glomerular Filt Rate 58 ml/min (>60); GFR (African American) 70 ML/MIN (>60); Globulin 3.3 gm/dl (1.3-3.2); Glucose 77 mg/dL (74-106); HDL Cholesterol 53 mg/dL (29-89); LDL Cholesterol 108 mg/dL (0-130); Potassium 4.4 mmoL/L (3.5-5.1); Sodium 138 mmol/L (136-145); Thyroid Stimulating Hormone 3.34 uIU/ml (0.358-3.740); Total Protein,Serum 6.9 gm/dL (6.4-8.2); Triglycerides 46 mg/dL (30-200); VLDL Cholesterol 9 mg/dL (0-40)
== END ==
PROVIDERS: Visit Provider Family Medicine
DX: E78.5 Hyperlipidemia, unspecified (principal); E03.9 Hypothyroidism, unspecified; I10 Essential (primary) hypertension
CPT/HCPCS: 36415; 80053; 80061; 84443

== ENCOUNTER → 2019-08-27 07:10 | Outpatient (CLI) | payer MEDICARE, SELFPAY ==
--- NOTE | 2019-08-27 07:11 | CA_ITS ---
APPROVED REPORT EXAM: Comprehensive 2D, Doppler, and color-flow Echocardiogram Cable Maker: Alicia Silveira RDCS Ht: 5 ft 5 in Wt: 139lbs BSA: 1.70 BP: 164/76 mmHg Indications: Aortic Valve Disease, Hyperlipidemia, Hypertension/HDD 2D Dimensions LVOT 2.08 cm (M/F) 1.5-2.5 M-Mode Dimensions RVDd 1.62 cm (0.9-2.6) LVDd 5.11 cm (3.5-5.7) LVDs 3.97 cm (3.5-5.7) IVSd 1.43 cm (0.6-1.1) PWd 0.87 cm (0.6-1.1) EF (Teich) 44.70% FS 22.30% EDV (Teich) 124.40 mL ESV (Teich) 68.80 mL LV Diastology E/A Ratio 0.64 Aortic Valve LVOT Max 102.00 (70-110 cm/s) LVOT VTI 22.79 cm Mitral Valve MV A Velocity 68.00 (40-130 cm/s) MV PHT 135.00 ms Left Ventricle Left atrium is mildly enlarged, left ventricle is normal size, mild concentric left ventricular hypertrophy, visually estimated ejection fraction 55% with no regional wall motion abnormality. Grade 1 diastolic dysfunction seen without tissue Doppler evidence of raise left atrial pressure. Right Ventricle Right atrium and right ventricular mildly enlarged with normal contractility. Aortic Valve Aortic valve is thickened and calcified leaflet continue to display good mobility, there is no aortic stenosis, there is moderate aortic insufficiency. Mitral Valve Mitral valve is grossly normal, there is mild mitral regurgitation. Tricuspid Valve Tricuspid valve is grossly normal, there is mild tricuspid regurgitation, tricuspid regurgitation jet velocity is inadequate for calculation of the right ventricular systolic pressure. Pulmonic Valve Pulmonic valve is poorly visualized. Great Vessels Aortic root is upper limit of the normal. Pericardium No significant pericardial effusion noted Conclusion 1. Biatrial enlargement, normal left ventricular size, mild concentric left ventricular hypertrophy, visually estimated ejection fraction 55% with no regional wall motion abnormality, grade 1 diastolic dysfunction seen without tissue Doppler evidence of raise left atrial pressure. 2. Thickened and calcified aortic valve without aortic stenosis, there is moderate aortic insufficiency. 3. Mildly enlarged right ventricle with normal contractility. 4. Mild mitral and tricuspid regurgitation. 5. No significant pericardial effusion noted. Electronically signed by : Jose L Tubbs, 08/28/2019 06:03:09
== END ==
PROVIDERS: PCP Family Medicine; Visit Provider Physician Assistant
DX: I35.1 Nonrheumatic aortic (valve) insufficiency (principal)
CPT/HCPCS: 93306

== ENCOUNTER → 2020-05-23 07:54 | Outpatient (CLI) | payer MEDICARE, SELFPAY ==
--- NOTE | 2020-05-23 08:06 | CT_ITS ---
PROCEDURE: CT ABDOMEN PELVIS WO CON CLINICAL INDICATION: PAIN OF UPPER ABD COMPARISON: CT AGABD CT angio abdomen from 12/11/2018 TECHNIQUE: Axial images obtained with sagittal and coronal reformats. All CT scans at the facility use one or more dose reduction, viz: automated exposure control, ma/kV adjustment per patient size (including targeted exams where dose is matched to indication, i.e. head), or iterative reconstruction technique. FINDINGS: LOWER THORAX: No acute finding ABDOMEN & PELVIS: Exam is limited without IV and without oral contrast. Postsurgical changes are present at the GE junction. There is a small hiatal hernia with thickening of the GE junction. There is also new mild diffuse thickening the body of the stomach. This is nonspecific and could be due to gastritis or even neoplasm. There is also some mild thickening of the duodenum suggesting duodenitis. The liver, spleen, and adrenal glands have an unremarkable appearance. There is a 7 mm nonobstructing stone in the mid aspect of the right kidney. There is stranding of the fat anterior to the tail the pancreas. This is nonspecific and could be related to pancreatitis. Please correlate with appropriate laboratory values and clinical findings. There is mild stranding of the fat in the left upper quadrant. There is a moderate amount of retained colonic feces. There is a given history of appendectomy. There are post hysterectomy changes. There is colonic diverticulosis involving the descending colon and sigmoid colon but no evidence of diverticulitis. No acute bony anomalies. IMPRESSION: 1. Moderate thickening of the stomach greater at the fundus and body of the stomach with hiatal hernia noted along with mild thickening of the duodenum. Gastroduodenitis is a consideration. Please correlate with clinical findings. 2. There is stranding of the fat anterior to the tail the pancreas and within the left upper quadrant. This could be related to pancreatitis or could be sequela from possible gastritis. Gastric wall thickening could also be secondary to pancreatitis. Please correlate with clinical findings. 3. Constipation with colonic diverticulosis but no evidence of diverticulitis Dictated by: Didier Christopher MD 05/23/2020 11:49 Didier Christopher MD in [facility] 05/23/2020 11:49
[2020-05-23 16:07] LABS: Chloride 97 mmol/L (98-107); Potassium 3.7 mmoL/L (3.5-5.1); Sodium 134 mmol/L (136-145)
[2020-05-23 16:09] LABS: Amylase 65 U/L (30-110)
[2020-05-23 16:10] LABS: Alanine Aminotransferase 28 U/L (12-78); Albumin Level 3.8 g/dl (3.5-5.0); Albumin/Globulin Ratio 1.2 (1.1-1.8); Alkaline Phosphatase 113 U/L (38-126); Anion Gap 13.7 mEq/L (5-15); Aspartate Amino Transferase 33 U/L (14-36); Bilirubin,Total 0.3 mg/dl (0.2-1.3); Blood Urea Nitrogen 20 mg/dl (7-17); Calcium 10.2 mg/dl (8.4-10.2); Carbon Dioxide 27 mmol/L (22.0-30.0); Estimated Glomerular Filt Rate 53 ml/min (>60); GFR (African American) 64 ML/MIN (>60); Globulin 3.1 g/dL (1.3-3.2); Glucose 87 mg/dl (74-100); Lipase 135 U/L (23-300); Total Protein,Serum 6.9 g/dl (6.3-8.2)
== END ==
PROVIDERS: PCP Family Medicine; Visit Provider Family Medicine
DX: R10.10 Upper abdominal pain, unspecified (principal)
CPT/HCPCS: 36415; 74176; 80053; 82150; 83690

== ENCOUNTER 2020-05-29 15:46 | Observation (INO) | payer MEDICARE, SELFPAY ==
--- NOTE | 2020-05-29 15:58 | PC.NURSE ---
PT ARRIVED TO THE FLOOR AT THIS TIME
[2020-05-29 16:07] VITALS: BP 163/83; PULSE 73; RESP 17; TEMP 36.8; O2SAT 93; BMI 22.1
--- NOTE | 2020-05-29 16:24 | PC.NURSE ---
20g PIV started in right AC. Harpal sent to lab
--- NOTE | 2020-05-29 17:02 | CT_ITS ---
PROCEDURE: CT ABDOMEN PELVIS WO CON CLINICAL INDICATION: epigastric abdominal pain Epigastric abdominal pain, constipation COMPARISON: CT CT ABDOMEN PELVIS WO CON from 05/23/2020 TECHNIQUE: Axial images obtained with sagittal and coronal reformats. All CT scans at the facility use one or more dose reduction, viz: automated exposure control, ma/kV adjustment per patient size (including targeted exams where dose is matched to indication, i.e. head), or iterative reconstruction technique. FINDINGS: LOWER THORAX: There are atelectatic or fibrotic changes in the left lung base ABDOMEN & PELVIS: Moderate-sized hiatal hernia. Surgical clips are present in the perigastric region. Prior cholecystectomy. There is mild gastric wall thickening and mild gastric distension. The adrenal glands have an unremarkable appearance. There is some stranding of the peritoneal fat between the tail the pancreas and the posterior gastric wall similar to the previous exam. There is a 7 mm stone in the mid polar region of the right kidney. There is mild prominence of the renal pelves on both sides but no ureteral calculi evident. There is a moderate amount of retained colonic feces. Gas and stool noted within the large bowel. There is colonic diverticulosis but no evidence of diverticulitis. There is given history of appendectomy. There is moderate distention of the urinary bladder. There is mild thickening of the rectum nonspecific but could be seen with bronchitis. The bowel gas pattern is nonspecific with gas-filled loops of small and large bowel which may indicate an ileus. There are scattered small mesenteric lymph nodes. Multiple unopacified bowel loops in the abdomen or pelvis which could obscure or mimic pathology. If symptoms persist, consider repeat exam with IV and oral contrast. No acute bony findings. IMPRESSION: 1. Moderate-sized hiatal hernia. There remains mild thickening of the gastric wall in the body and fundus of the stomach and mild gastric distension. This could be inflammatory/infectious or neoplastic. Upper endoscopy may provide further evaluation. 2. There remains stranding of the fat between the tail the pancreas and the posterior gastric wall which could be related to adjacent inflammatory changes of the stomach or pancreatitis. 3. There is moderate amount of feces in the large bowel with air-fluid levels and gas-filled loops of small and large bowel which may be seen with ileus. There is also mild thickening of the rectum which could be due to nondistention or proctitis. 4. Multiple unopacified bowel loops in the abdomen or pelvis which could obscure or mimic pathology. If symptoms persist, consider repeat exam with IV and oral contrast. 5. Right nephrolithiasis Dictated by: Didier Christopher MD 05/30/2020 06:10 Didier Christopher MD in [facility] 05/30/2020 06:10
[2020-05-29 17:07] VITALS: PULSE 73; RESP 17; O2SAT 93
[2020-05-29 17:26] LABS: Basophils # 0.1 K/mm3 (0-0.2); Basophils % 0.6 % (0.1-2.0); Eosinophils # 0.1 K/mm3 (0.0-0.4); Eosinophils % 0.9 % (0.1-12.0); Hematocrit 34.7 % (37.0-47.0); Lymphocytes # 1.4 K/mm3 (0.7-4.5); Lymphocytes % 14.9 % (10-50); Mean Corpuscular HGB Conc 34.5 g/dL (31.8-35.4); Mean Corpuscular Hemoglobin 31.5 pg (27.0-31.2); Mean Corpuscular Volume 91.3 fl (81-99); Mean Platelet Volume 7.8 fl (7.4-10.4); Monocytes # 0.8 K/mm3 (0.1-1.0); Monocytes % 8.5 % (1.7-9.3); Neutrophils % 75.2 % (37.0-80.0); Platelet Count 678 K/mm3 (142-424); Red Cell Distribution Width 12.5 % (11.5-17.5); White Blood Count 9.3 K/mm3 (4.8-10.8)
[2020-05-29 17:27] LABS: Creatine Kinase 97 U/L (30-135)
[2020-05-29 17:32] LABS: Chloride 91 mmol/L (98-107); Sodium 127 mmol/L (136-145)
[2020-05-29 17:34] LABS: Amylase 75 U/L (30-110)
[2020-05-29 17:35] LABS: Alanine Aminotransferase 32 U/L (12-78); Albumin Level 3.8 g/dl (3.5-5.0); Albumin/Globulin Ratio 1.1 (1.1-1.8); Alkaline Phosphatase 124 U/L (38-126); Aspartate Amino Transferase 59 U/L (14-36); Bilirubin,Total 0.3 mg/dl (0.2-1.3); Blood Urea Nitrogen 17 mg/dl (7-17); Calcium 9.9 mg/dl (8.4-10.2); Carbon Dioxide 28 mmol/L (22.0-30.0); Creatinine Clearance Estimated 43 mL/min (50-200); Estimated Glomerular Filt Rate 53 ml/min (>60); GFR (African American) 64 ML/MIN (>60); Globulin 3.4 g/dL (1.3-3.2); Glucose 110 mg/dl (74-100); Lipase 115 U/L (23-300); Total Protein,Serum 7.2 g/dl (6.3-8.2)
[2020-05-29 17:42] LABS: Coronavirus 19 IgG Antibody Negative (Negative); Coronavirus 19 IgM Antibody Negative (Negative)
[2020-05-29 17:43] LABS: CKMB Relative Index 1.8 U/L (0-4.0); Creatine Kinase MB 1.7 ng/ml (0.0-2.03)
[2020-05-29 17:48] LABS: Troponin I < 0.01 ng/ml (0.00-0.034)
--- NOTE | 2020-05-29 18:28 | HMH.ACPN2 ---
Internal Medicine - PN: Subj *Date: 05/29/20 *Time: 18:28 Interval history: Alejandrina is an 84-year-old white female who was seen in the office on 05/22/2020 with a 1 wek history of epigastric abdominal pain. SHe reported one episode of vomiting but no coffee ground emesis. No heartburn or reflux symptoms. She was having some issues with sluggish bowels. No melena or hematochezia at that time. Laboratory work-up was remarkable for a slightly elevated white count of 12,000. Liver functions, amylase and lipase were normal. CT scan showed some thickening of the gastric wall with duodenitis and neoplasm in the differential. She was noted with colonic diverticulosis and moderate retained feces but no diverticulitis. She has a significant history of peptic ulcer disease having undergone surgery about 50 years ago and also had a documented gastric ulcer in [address] Mcneil. 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 She returned to the office today with persistent complaints of epigastric pain as well as worsening constipation despite use of stool softeners, MiraLAX, and Dulcolax suppositories at home.. States she has not had a significant bowel movement in 4 or 5 days. Family notes some increased confusion as well. She has had no fever. No vomiting. She has been able to eat and drink but appetite has been diminished. Because of her worsening pain, possible fecal impaction and increasing confusion, she has been admitted for further evaluation. Exam Vital signs and Labs for Last 24 Hours: Temp Pulse Resp BP Pulse Ox 98.3 F 73 17 163/83 H 93 L 05/29/20 16:07 05/29/20 17:07 05/29/20 17:07 05/29/20 16:07 05/29/20 17:07 Laboratory Results - last 24 hr 05/29/20 16:: WBC 9.3, RBC 3.80 L, Hgb 12.0 L, Hct 34.7 L, MCV 91.3, MCH 31.5 H, MCHC 34.5, RDW 12.5, Plt Count 678 H, MPV 7.8, Neut % (Auto) 75.2, Lymph % (Auto) 14.9, [place] % (Auto) 8.5, Eos % (Auto) 0.9, Baso % (Auto) 0.6, Neut # (Auto) 7.0, Lymph # (Auto) 1.4, [place] # (Auto) 0.8, Eos # (Auto) 0.1, Baso # (Auto) 0.1 05/29/20 16:20: Sodium 127 L, Potassium 4.0, Chloride 91 L, Carbon Dioxide 28, Anion Gap 12.0, BUN 17, Creatinine 1.00, Estimated Creat Clear 43, Estimated GFR 53 L, Est GFR ( Amer) 64, Glucose 110 H, Calcium 9.9, Total Bilirubin 0.3, AST 59 H, ALT 32, Alkaline Phosphatase 124, Total Protein 7.2, Albumin 3.8, Globulin 3.4 H, Albumin/Globulin Ratio 1.1, Amylase 75, Lipase 115 05/29/20 16:20: Total Creatine Kinase 97, CK-MB (CK-2) 1.7, CK-MB (CK-2) Rel Index 1.8, Troponin I < 0.01 05/29/20 16:20: SARS-CoV-2 IgG Ab (Rapid) Negative, SARS-CoV-2 IgM Ab (Rapid) Negative I & O for Last 24 hours: Intake & Output 05/27/20 05/28/20 05/29/20 05/30/20 11:59 11:59 11:59 11:59 Intake Total 360 / 360 Balance 360 / 360 Weight 137 lb 8 oz Narrative: She is accompanied by her daughter who contributes most of the history. She is alert and oriented and responds appropriately to questions although her answers are a bit slow. Color appears normal. Lungs are clear to auscultation. Heart is regular with no ectopy. Abdomen is soft and nondistended with moderate midepigastric tenderness to palpation. No rebound or guarding. No tenderness in the lower quadrants. Extremities show no edema. Assessment and Plan (1) Epigastric abdominal pain Current visit: Yes Status: Acute Category: Medical Code(s): R10.13 - Epigastric pain (2) History of peptic ulcer disease Current visit: Yes Status: Acute Category: Medical Code(s): Z87.11 - Personal history of peptic ulcer disease (3) Abnormal CT scan Current visit: Yes Status: Acute Category: Medical Code(s): R93.89 - Abnormal findings on diagnostic imaging of other specified body structures (4) Altered mental status Current visit: Yes Status: Acute Category: Medical Code(s): R41.82 - Altered mental status, unspecified (5) Hypertension Current visit: No Status: Chroni
[2020-05-29 20:03] VITALS: BP 167/75; PULSE 71; RESP 18; TEMP 36.7; O2SAT 95
[2020-05-29 20:21] LABS: Microscopic, Urine URINE MICROSCOPIC (MICROSCOPIC)
[2020-05-29 20:22] LABS: Appearance,Urine CLEAR (Clear); Bilirubin,Urine Negative (Negative); Blood, Urine Negative (Negative); Color,Urine YELLOW (Yellow); Glucose,Urine (UA) Negative (Negative); Ketones,Urine Negative (Negative); Leukocyte Esterase,Urine Negative (Negative); Nitrate,Urine Negative (Negative); Protein,Urine Negative (Negative); Specific Gravity, Urine <= 1.005 (1.005-1.030); Urobilinogen,Urine 0.2 EU/dl (0.2)
[2020-05-29 21:02] LABS: Bacteria,Urine Trace /lpf
[2020-05-30] VITALS (17 sets, daily range): BP systolic 114–177; BP diastolic 53–91; PULSE 63–77; RESP 16–18; TEMP 36.3–37.1; O2SAT 2–98; BMI 21.9
--- NOTE | 2020-05-30 02:54 | PC.NURSE ---
Pt has rested well this shift. Pt is A&Ox4 but does take a few seconds to answer questions. Bilateral lung sounds remain clear t/o all lung jay. Active bowel sounds in all 4 quads. Abdomen remains soft and is tender during palpation in the left and right upper quadrants. Pt refused a bath at the beginning of this shift but was reminded by this nurse that she would need to bathe prior to possible EGD in the morning. Pt verbalized understanding. 20g PIV in RAC remains patent and continues to infuse NS @ 100 mL/hr. No other acute changes or complaints this shift. Call light remains in reach. Will continue to monitor.
--- NOTE | 2020-05-30 07:29 | HMH.PHAVTE ---
[facility] Pharmacy VTE Monitoring - Patient Demographics Admission date: 05/30/20 Report Date: 05/30/20 Time: 07:29 Allergies/Adverse Reactions: Patient Allergies morphine Allergy (Mild, Verified 05/29/20 17:21) ITCHING NSAIDS (Non-Steroidal Anti-Inflamma Adverse Reaction (Severe, Verified 05/29/20 17:21) Height: 1.68 m Weight: 61.859 kg Patient Problems: Current Active Problems Epigastric abdominal pain (Acute) History of peptic ulcer disease (Acute) Abnormal CT scan (Acute) Altered mental status (Acute) - VTE Risk Labs: VTE Related Lab Results Hgb 12.0 g/dL (12.2-16.2) L 05/29/20 16:20 Hct 34.7 % (37.0-47.0) L 05/29/20 16:20 Plt Count 678 K/mm3 (142-424) H 05/29/20 16:20 BUN 17 mg/dl (7-17) 05/29/20 16:20 Creatinine 1.00 mg/dl (0.52-1.04) 05/29/20 16:20 Estimated Creat Clear 43 mL/min (50-200) 05/29/20 16:20 Was VTE Risk Assessment Performed: Yes VTE Score: 1 VTE Risk Level: Very Low Risk Clinical Trial Participant: No - Prophylaxis VTE Prophylaxis Ordered?: Yes Types of VTE Prophylaxis: TEDS Knee High
--- NOTE | 2020-05-30 07:31 | HMH.PHAINT ---
HOME MED COMPLETED USING LIST FROM [facility].
--- NOTE | 2020-05-30 08:19 | HMH.HP ---
*Admission Date: 05/30/20 <Key Kay - 05/30/20 08:19> *Chief complaint: Epigastric pain and confusion <RahulKey - 05/30/20 08:26> *History of present illness: Ms. Bang is an 84-year-old white female with history of HTN, HLP, OA, hiatal hernia, and Amanda's esophagus who was seen in the office on 05/22/2020 with a 1 wek history of epigastric abdominal pain. She reported one episode of vomiting but no coffee ground emesis. No heartburn or reflux symptoms. She was having some issues with sluggish bowels. No melena or hematochezia at that time. Laboratory work-up was remarkable for a slightly elevated white count of 12,000. Liver functions, amylase and lipase were normal. CT scan showed some thickening of the gastric wall with duodenitis and neoplasm in the differential. She was noted with colonic diverticulosis and moderate retained feces but no diverticulitis. She has a significant history of peptic ulcer disease having undergone surgery about 50 years ago and also had a documented gastric ulcer in [address] Mcneil. 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 She returned to the office yesterday with persistent complaints of epigastric pain as well as worsening constipation despite use of stool softeners, MiraLAX, and Dulcolax suppositories at home. States she has not had a significant bowel movement in 4 or 5 days. Family notes some increased confusion as well. She has had no fever. No vomiting. She has been able to eat and drink but appetite has been diminished. Because of her worsening pain, possible fecal impaction and increasing confusion, she was admitted for further evaluation. This morning she is resting comfortably in bed with daughter at bedside. She has been NPO overnight. She denies any abdominal pain, nausea, vomiting, or BM. She has been up to void normally. She answers questions appropriately. <Key Kay - 05/30/20 09:07> [facility] History I have reviewed the patient's past medical history: Yes <Key Kay 05/30/20 08:26> Medical History: Reports:: Gastrointestinal Bleed, Hiatal Hernia, Hyperlipidemia, Hypertension Denies:: Cancer, Diabetes Mellitus Type 1, Diabetes Mellitus Type 2, MRSA <Rahul,05/30/20 08:54> *Have you ever received a pneumonia vaccine?: No <Max Kay05/30/20 08:19> *Have you received a flu vaccine this season?: Yes <Max Kay05/30/20 08:19> Other Medical History: Reports: Arthritis, Cataracts, Hypothyroidism, Other <Max Kay05/30/20 08:54> Laterality Cases: Bilateral: Cataract <Rahul05/30/20 08:54> Other Surgeries: Yes: Appendectomy, Cardiac Catheterization, Cholecystectomy, EGD, Hernia Repair, Hysterectomy-Partial <Max Kay05/30/20 08:19> Amputation: No <Rahul05/30/20 08:19> Fractures: No <Rahul05/30/20 08:19> - *Social History Last grade of school completed: High school graduate <Max Kay05/30/20 08:19> Smoking Status: Never smoker <Rahul05/30/20 08:19> Alcohol Intake: never <Rahul05/30/20 08:19> Substance Use Type: denies use <Rahul05/30/20 08:19> *Occupational Status:: retired <Rahul05/30/20 08:19> Housing: house <Max Kay05/30/20 08:19> *Travel in the last 8 weeks: None <Max Kay05/30/20 08:19> Family Hx:: Cancer <Rahul05/30/20 08:19> Review of Systems - Constitutional Reports weakness, Denies fever(s), Denies increased appetite <Max Kay05/30/20 08:54> - Eyes Denies change in vision <Max Kay05/30/20 09:07> - ENT Reports dry mouth <Max Kay05/30/20 08:54> - *Cardiovascular Denies chest pain, Denies shortness of breath <Key Kay 05/30/20 08:54> - *Respiratory Denies shortness of breath <Key Kay - 05/30/20 08:54> - *Gastrointestinal Reports abdominal pain, Reports change in bowel habits, Reports constipation, Reports nausea, Denies coffee ground vomit, Denies loose stools, Denies heartburn, Denies ex
--- NOTE | 2020-05-30 10:48 | PC.NURSE ---
received report from Juan F Centeno RN
--- NOTE | 2020-05-30 11:52 | P.PN_ITS ---
[facility] Anesthesia Checklist - Patient Identification Patient Identification: Arm Band, Verbal (Name & ) - Structural Data Admitted From: Home Planned Operative Procedure/s: EGD Consent for Planned Operative Procedure(s) Verified: Yes Verified Documents: Surgical Consent, History and Physical - NPO Status Verified Time NPO: 00:00 - Chart Verification Results Verified: CBC, BMP - Additional verifications Anesthesia Reactions: No - Airway Assessment C-Spine Mobility Assessed: Yes TMJ Mobility Assessed: Yes Dentition: Dentures-good fit (Upper) - Neurological Assessment Level of Consciousness: Awake, Alert, Appropriate, Follows Commands Hx Seizures: No Numbness or tingling in extremities: No - Anesthesia Plan Anesthesia Risk discussed: Yes Anesthesia Plan: Verified ASA Class: II Anesthesia Type: MAC [facility] History I have reviewed the patient's past medical history: Yes Medical History: Reports:: Gastrointestinal Bleed, Hiatal Hernia, Hyperlipidemia, Hypertension Denies:: Cancer, Diabetes Mellitus Type 1, Diabetes Mellitus Type 2, MRSA *Have you ever received a pneumonia vaccine?: No *Have you received a flu vaccine this season?: Yes Other Medical History: Reports: Arthritis, Cataracts, Hypothyroidism, Other Anesthesia experience/problems:: No prior complications Laterality Cases: Bilateral: Cataract Other Surgeries: Yes: Appendectomy, Cardiac Catheterization, Cholecystectomy, EGD, Hernia Repair, Hysterectomy-Partial Amputation: No Fractures: No - *Social History Last grade of school completed: High school graduate Smoking Status: Never smoker Alcohol Intake: never Substance Use Type: denies use *Occupational Status:: retired Housing: house *Travel in the last 8 weeks: None Family Hx:: Cancer
--- NOTE | 2020-05-30 12:04 | HMH.PROC ---
[facility] Procedure Note Procedure Note:: Upper Endoscopy Procedure Report: Esophagogastroduodenoscopy with cold biopsies Endoscopost: Danie Romero II, MD Referring Physician: John Morelos MD Date of Procedure: May 30, 2020 Equipment: Olympus GIF 180 standard upper endoscope Sedation: MAC sedation Indications: Mrs. Bang is an 84-year-old female with the onset of pain across the epigastrium, nausea and at least 1 bout of coffee-ground emesis. Her CAT scan showed moderate thickening of the gastric wall especially in the body and fundus of the stomach. The patient does have a history of peptic ulcer disease and did have surgery at the [facility] years ago. The patient did have an EGD by Dr. Sandip Mcneil in 2010 and there was mention of an ulcer as well as Amanda's esophagus. The patient has had some chronic constipation and her CAT scan also showed obstipation/constipation and diverticular disease. The CAT scan also showed some fat stranding and inflammation adjacent to the tail of the pancreas. There was insignificant nephrolithiasis in the right kidney. The patient has had some weight loss. She reports no bloating or belching. She reports no use of NSAIDs. Her hemoglobin and hematocrit were 12.0 and 34.7. She reports no melanotic stools. Procedure: Prior to the procedure, a history and physical exam was performed, and patient's medications and allergies were reviewed. The risks, benefits and alternatives of the sedation and procedure were discussed with the patient. All questions were answered and informed consent was obtained. The patient was brought to the procedure room. Patient identification and proposed procedure were verified by the physician and the nurse. The patient was placed in a left lateral decubitus position and the scope was passed under direct vision. Throughout the procedure, the patient's blood pressure, pulse, and oxygen saturations were monitored continuously. The upper GI endoscopy was accomplished without difficulty. The patient tolerated the procedure well. Findings: The scope was passed directly into the upper esophagus and advanced to the third portion of the duodenum. The post bulbar duodenum and duodenal bulb were normal with normal mucosa and conniventes. There was mild duodenal lymphoid stasis. The scope was withdrawn through a normal duodenal bulb and pylorus into the stomach. There was some bile reflux with mild linear reactive gastropathy of the antrum. There was also retained liquid and solid food within the body and fundus suggestive of gastric dysmotility. There was widely patent pylorus. Along the lesser curvature and body of the stomach was a deep gastric ulceration with thick margins and there was abnormally thickened mucosa proximal to this in the fundus and near the cardia. Biopsies were taken from the margin of the ulceration that appeared to be 15 mm diameter. Biopsies were taken separately from the lesser curvature thickened mucosa. There was a small hiatal hernia. The scope was then withdrawn into the esophagus. There was no evidence of reflux esophagitis but there was a single tongue of salmon-colored mucosa that was biopsied to rule out short segment Amanda's esophagus. There were tertiary contractions and evidence of moderate esophageal dysmotility. The remainder of the esophageal mucosa was normal. Impression: 1. Large/deep gastric ulcer (15 mm) along lesser curvature and body of stomach with marked proximal mucosal chronic gastritis and mucosal thickening 2. Retained digestive liquid solid food?rule out gastric dysmotility 3. Bile reflux with mild linear reactive gastropathy 4. 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 Plan: I would recommend PPI therapy twice daily and I will add misoprostol. I do not think that she is using NSAIDs. I will obtain a gastrin level and CEA level. I will discussed the findings with the patient and family and follow
--- NOTE | 2020-05-30 14:17 | PC.NURSE ---
Right ac IV has infitrated. To call 2nd floor to see if need to restart or DC IV if pt is getting Discharged
--- NOTE | 2020-05-30 14:21 | PC.NURSE ---
Restarted IV with 20 ga in left forearm. Unable to draw labs with IV stick. Dc'd right AC iv. Applied 2x2 and coban to site Called lab to have them draw at BS on floor
--- NOTE | 2020-05-30 18:20 | PC.NURSE ---
late entry for 1730: daughter (Sandee) refused for pt to have last set of post op vitals taken at 1730. Daughter reports that she is a nurse and doesn't think that her mother needs them taken.
--- NOTE | 2020-06-01 07:46 | HMH.DCSUM ---
General - General Admission date:: 05/29/20 <Jack Morelos - 06/06/20 08:29> 05/29/20 <OttoAshleigh - 06/01/20 08:33> Discharge date: 05/30/20 <MenjivarAshleigh schultz - 06/01/20 08:33> HPI HPI: Ms. Bang is an 84-year-old white female with history of HTN, HLP, OA, hiatal hernia, and Amanda's esophagus who was seen in the office on 05/22/2020 with a 1 week history of epigastric abdominal pain. She reported one episode of vomiting but no coffee ground emesis and no heartburn or reflux symptoms. She was having some issues with sluggish bowelsNo and had no melena or hematochezia at that time. Laboratory work-up was remarkable for a slightly elevated white count of 12,000. Liver functions, amylase and lipase were normal. CT scan showed some thickening of the gastric wall with duodenitis and neoplasm in the differential. She was noted with colonic diverticulosis and moderate retained feces but no diverticulitis. She had a significant history of peptic ulcer disease having undergone surgery about 50 years ago and also had a documented gastric ulcer in [address] Mcneil. There was some mention of Amanda's esophagus. She returned to the office with persistent complaints of epigastric pain as well as worsening constipation despite use of stool softeners, MiraLAX, and Dulcolax suppositories at home. She stated that she had not had a significant bowel movement in 4 or 5 days. Family noted some increased confusion as well. She had no fever and no vomiting. She had been able to eat and drink but appetite was diminished. Because of her worsening pain, possible fecal impaction and increasing confusion, she was admitted for further evaluation. This following morning she was resting comfortably in bed with daughter at bedside. She had been NPO overnight. She denied any abdominal pain, nausea, vomiting, or BM. She had been up to void normally. She answered questions appropriately. <Ashleigh Menjivar - 06/01/20 08:33> Hospital Course Hospital Course: Family was concerned about increased confusion. She was felt to have some degree of dehydration as she had not been eating or drinking well. With her persistent epigastric pain being a concerning factor with an abnormal CT scan the plan was for her to have a repeat CT scan and iarrange for an EGD. She was started on maintenance IV fluids as well as IV Protonix. Dr. Romero was consulted. The following morning she had rested comfortably. She had been n.p.o. overnight for the EGD. She denied abdominal pain, nausea, vomiting, or stool. She had been up and voided normally. 05/30/[address] Romero Impression: 1. Large/deep gastric ulcer (15 mm) along lesser curvature and body of stomach with marked proximal mucosal chronic gastritis and mucosal thickening 2. Retained digestive liquid solid food?rule out gastric dysmotility 3. Bile reflux with mild linear reactive gastropathy 4. 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 Patient was started on the following as recommended by Dr. Romero: PPI therapy twice daily and to add misoprostol. To obtain a gastrin level and CEA level. To consider treatment of her obstipation (fiber bowel regimen) and possibly promotility therapy (metoclopramide). After EGD patient did well. She retained liquids without problems. She was discharged home in stable and satisfactory condition. Diet was to continue as in the hospital. She was to follow-up with Dr. Romero 06/20/[address] Morelos. Medications as per medication reconciliation sheet. <Ashleigh Menjivar - 06/01/20 08:33> Objective Vital signs: Temp Pulse Resp BP Pulse Ox 98.6 F 71 16 142/66 H 97 05/30/20 16:30 05/30/20 16:30 05/30/20 16:30 05/30/20 16:30 05/30/20 16:30 <Jack Morelos - 06/06/20 08:29> Temp Pulse Resp BP Pulse Ox 98.6 F 71 16 142/66 H 97 05/30/20 16:30 05/30/20 16:30 05/30/20 16:30 05/30/20 1
[2020-06-01 14:02] LABS: CEA 2.4 ng/mL (0.0-4.7)
[2020-06-02 18:00] LABS: Gastrin 224 pg/mL (0-115)
== END 2020-05-30 18:26 | disposition home or self-care (01) ==
PROVIDERS: Internal Medicine Gastroenterology; Admitting Provider Family Medicine; PCP Family Medicine; Visit Provider Family Medicine
PROC: 0DJ08ZZ Inspection of Upper Intestinal Tract, Via Natural or Artificial Opening Endoscopic (ICD-10-PCS; CPT 43235; principal; 2020-05-30 11:00)
DX: K25.9 Gastric ulcer, unspecified as acute or chronic, without hemorrhage or perforation (principal); R10.13 Epigastric pain; E03.9 Hypothyroidism, unspecified; I10 Essential (primary) hypertension; E78.5 Hyperlipidemia, unspecified; K22.70 Barrett's esophagus without dysplasia; K44.9 Diaphragmatic hernia without obstruction or gangrene; Z88.8 Allergy status to other drugs, medicaments and biological substances; Z88.5 Allergy status to narcotic agent; Z79.899 Other long term (current) drug therapy; D37.1 Neoplasm of uncertain behavior of stomach
CPT/HCPCS: 43239; 36415; 74176; 80053; 81001; 82150; 82378; 82550; 82553; 82941; 83690; 84484; 85025; 86328; 86677; 88305; 88342; G0378

== ENCOUNTER → 2020-07-24 08:21 | Outpatient (CLI) | payer MEDICARE, SELFPAY ==
[2020-07-24 12:12] LABS: Coronavirus 19 IgG Antibody Negative (Negative); Coronavirus 19 IgM Antibody Negative (Negative)
== END ==
PROVIDERS: Visit Provider Internal Medicine Gastroenterology
DX: Z01.818 Encounter for other preprocedural examination (principal); Z13.810 Encounter for screening for upper gastrointestinal disorder
CPT/HCPCS: 36415; 86328

== ENCOUNTER 2020-07-25 08:19 | Day surgery (SDC) | payer MEDICARE, SELFPAY ==
[2020-07-17 15:30] VITALS: BMI 22.1
--- NOTE | 2020-07-23 14:39 | SUR.PREOP ---
Pt notified of procedure time change to 930am arrive at 830am TuesdayJul 25
[2020-07-25] VITALS (7 sets, daily range): BP systolic 107–192; BP diastolic 55–82; PULSE 51–66; RESP 16–18; TEMP 36.3–36.4; O2SAT 94–99
--- NOTE | 2020-07-25 09:36 | P.PN_ITS ---
[facility] Anesthesia Checklist - Patient Identification Patient Identification: Arm Band - Structural Data Admitted From: Home Planned Operative Procedure/s: egd Consent for Planned Operative Procedure(s) Verified: Yes Verified Documents: Surgical Consent, History and Physical - NPO Status Verified Time NPO: 00:00 - Additional verifications Anesthesia Reactions: No - Airway Assessment C-Spine Mobility Assessed: Yes (mp2) TMJ Mobility Assessed: Yes Dentition: Dentures-good fit - Neurological Assessment Level of Consciousness: Awake, Alert - Anesthesia Plan Anesthesia Risk discussed: Yes Anesthesia Plan: Verified ASA Class: III Anesthesia Type: MAC [facility] History I have reviewed the patient's past medical history: Yes Medical History: Reports:: Gastrointestinal Bleed, Hiatal Hernia, Hyperlipidemia, Hypertension, Valvular Heart Disease Denies:: Cancer, Diabetes Mellitus Type 1, Diabetes Mellitus Type 2, Internal Pacemaker, MRSA, Seizures *Have you ever received a pneumonia vaccine?: No *Have you received a flu vaccine this season?: Yes Other Medical History: Reports: Arthritis, Cataracts, Hypothyroidism, Other Anesthesia experience/problems:: nac Other Surgeries: Yes: Appendectomy, Cardiac Catheterization, Cholecystectomy, EGD, Hernia Repair, Hysterectomy-Partial. No: Pacemaker Amputation: No Fractures: No - *Social History Smoking Status: Never smoker Alcohol Intake: never Substance Use Type: denies use *Occupational Status:: retired Housing: house *Travel in the last 8 weeks: None Family Hx:: Cancer
--- NOTE | 2020-07-25 09:47 | HMH.PROC ---
[facility] Procedure Note Procedure Note:: Upper Endoscopy Procedure Report: Esophagogastroduodenoscopy with cold biopsies Endoscopost: Danie Romero II, MD Referring Physician: John Morelos MD Date of Procedure: July 25, 2020 Equipment: Olympus GIF 180 standard upper endoscope Sedation: MAC sedation Indications: Mrs. Bang is an 84-year-old female who was having epigastric abdominal pain, nausea and coffee-ground emesis. Her CAT scan showed some thickening in the gastric wall. The patient had a history of peptic ulcer disease with surgery. She underwent EGD on May 30, 2020. This did show a large deep 15 mm gastric ulceration along the lesser curvature and body of the stomach with chronic gastritis. Biopsies of the margins of the ulcer were benign. The patient was placed on omeprazole and metoclopramide. She was also placed on misoprostol. The patient has had clinical improvement and is here for 8-week follow-up endoscopy to ensure healing and with repeat biopsies. Procedure: Prior to the procedure, a history and physical exam was performed, and patient's medications and allergies were reviewed. The risks, benefits and alternatives of the sedation and procedure were discussed with the patient. All questions were answered and informed consent was obtained. The patient was brought to the procedure room. Patient identification and proposed procedure were verified by the physician and the nurse. The patient was placed in a left lateral decubitus position and the scope was passed under direct vision. Throughout the procedure, the patient's blood pressure, pulse, and oxygen saturations were monitored continuously. The upper GI endoscopy was accomplished without difficulty. The patient tolerated the procedure well. Findings: The scope was passed directly into the upper esophagus and advanced to the third portion of the duodenum. The post bulbar duodenum and duodenal bulb were normal with normal mucosa and conniventes. The scope was withdrawn through a normal duodenal bulb and pylorus into the stomach. There was moderate retained digestive food (solid food) in the body and fundus) which had been seen previously. There was still evidence of the gastric ulceration along the lesser curvature in the body of the stomach proximally. This was certainly not as deep as previously but still had a 12 to 13 mm base. Biopsies were taken from the margin of the ulcer as well as the base of the ulcer. There was some mild chronic gastritis. Upon retroflexion there was a small 2 cm hiatal hernia. The scope was then withdrawn into the esophagus. There was a serrated Z-line and biopsies were obtained again to rule out intestinal metaplasia. There was a distal esophageal diverticulum and there was evidence of moderate esophageal dysmotility/presbyesophagus. Impression: 1. Gastric ulcer lesser curvature status post biopsies of margin and base 2. Gastric dysmotility with solid bezoar?rule out gastroparesis 3. Nonerosive GERD with moderate esophageal dysmotility and distal esophageal diverticulum (presbyesophagus) Plan: I will follow-up the biopsies. I would still recommend repeat surveillance EGD in another 12 weeks to ensure healing. Certainly there is the potential risk of underlying gastric adenocarcinoma. Biopsies taken and will be reviewed. I would continue the omeprazole and misoprostol as well as avoidance of NSAIDs. I would continue metoclopramide. I will discuss the findings with patient and family.
== END 2020-07-25 10:46 | disposition home or self-care (01) ==
LOC: OUTP 08:21
PROVIDERS: PCP Family Medicine; Visit Provider Internal Medicine Gastroenterology
PROC: 0DJ08ZZ Inspection of Upper Intestinal Tract, Via Natural or Artificial Opening Endoscopic (ICD-10-PCS; CPT 43235; principal; 2020-07-25 09:30)
DX: R11.2 Nausea with vomiting, unspecified (principal); K25.9 Gastric ulcer, unspecified as acute or chronic, without hemorrhage or perforation; K59.89 Other specified functional intestinal disorders; T18.2XXA Foreign body in stomach, initial encounter; K21.9 Gastro-esophageal reflux disease without esophagitis; K22.4 Dyskinesia of esophagus; Q39.6 Congenital diverticulum of esophagus; Z87.11 Personal history of peptic ulcer disease; Z79.899 Other long term (current) drug therapy
CPT/HCPCS: 43239; 88305; 88342

== ENCOUNTER → 2020-10-25 09:49 | Outpatient (CLI) | payer MEDICARE, SELFPAY ==
[2020-10-25 11:01] LABS: Coronavirus 19 IgG Antibody Positive (Negative); Coronavirus 19 IgM Antibody Negative (Negative)
== END ==
PROVIDERS: Visit Provider Internal Medicine Gastroenterology
DX: Z01.818 Encounter for other preprocedural examination (principal); Z20.822 Contact with and (suspected) exposure to COVID-19; Z86.16 Personal history of COVID-19; Z13.810 Encounter for screening for upper gastrointestinal disorder
CPT/HCPCS: 36415; 86328

== ENCOUNTER 2020-10-27 07:51 | Day surgery (SDC) | payer MEDICARE, SELFPAY ==
[2020-10-21 13:02] VITALS: BMI 22.6
[2020-10-27] VITALS (7 sets, daily range): BP systolic 105–200; BP diastolic 52–86; PULSE 49–66; RESP 16–18; TEMP 36.2–36.3; O2SAT 95–98
--- NOTE | 2020-10-27 08:51 | HMH.PROC ---
[facility] Procedure Note Procedure Note:: Upper Endoscopy Procedure Report: Esophagogastroduodenoscopy with cold biopsies Endoscopost: Danie Romero II, MD Referring Physician: John Morelos MD Date of Procedure: October 27, 2020 Equipment: Olympus GIF 180 standard upper endoscope Sedation: MAC sedation Indications: Mrs. Bang is an 84-year-old female who previously had a large and deep gastric ulceration (15 mm) along the lesser curvature and body of the stomach found in May 2020 by upper endoscopy. At that time she was experiencing epigastric pain, nausea and coffee-ground emesis. She was placed on omeprazole, misoprostol and metoclopramide. Biopsies of the margins of the ulcer were benign. She had 8-week endoscopy on July 25, 2020 and there was still a 12 mm base gastric ulcer. A CAT scan had shown thickening of the gastric wall. The patient is here for follow-up to ensure healing and because of potential for underlying gastric adenocarcinoma. The patient reports no abdominal pain, nausea or vomiting. She has had no weight loss. She reports no melena or hematemesis. Procedure: Prior to the procedure, a history and physical exam was performed, and patient's medications and allergies were reviewed. The risks, benefits and alternatives of the sedation and procedure were discussed with the patient. All questions were answered and informed consent was obtained. The patient was brought to the procedure room. Patient identification and proposed procedure were verified by the physician and the nurse. The patient was placed in a left lateral decubitus position and the scope was passed under direct vision. Throughout the procedure, the patient's blood pressure, pulse, and oxygen saturations were monitored continuously. The upper GI endoscopy was accomplished without difficulty. The patient tolerated the procedure well. Findings: The scope was passed directly into the upper esophagus and advanced to the third portion of the duodenum. The post bulbar duodenum and duodenal bulb were normal with normal mucosa and conniventes. There was mild duodenal lymphoid stasis. The scope was withdrawn through a normal duodenal bulb and pylorus into the stomach. There was bile reflux with moderate gastropathy of the antrum. There was some chronic gastritis of the body and fundus of the stomach. The lesser curvature was examined carefully and there was evidence of complete healing of the prior gastric ulceration in the proximal body and lesser curvature. Cold biopsies were taken from the antrum and lesser curvature. There was marked bile reflux. Upon retroflexion there was a small 1 to 2 cm hiatal hernia. The scope was then withdrawn into the esophagus. There was a single tongue of salmon-colored mucosa distally that was biopsied to rule out short segment Amanda's esophagus. There were strong tertiary contractions and evidence of moderate to marked esophageal dysmotility. The remainder of the esophageal mucosa was normal. Impression: 1. Nonerosive GERD with moderate to marked esophageal dysmotility and small 1 to 2 cm hiatal hernia?biopsies taken to rule out short segment Amanda's 2. Bile reflux with linear gastropathy of antrum and chronic gastritis of body and fundus but with complete healing of prior gastric ulceration Plan: I will follow-up the biopsies. There was complete healing of the prior gastric ulceration. I will discuss long-term treatment with omeprazole and/or misoprostol. I will also discuss need for promotility treatment (i.e. metoclopramide).
--- NOTE | 2020-10-27 08:58 | HMH.ANESCL ---
[facility] Anesthesia Checklist - Patient Identification Patient Identification: Arm Band - Structural Data Admitted From: Home Planned Operative Procedure/s: egd Consent for Planned Operative Procedure(s) Verified: Yes Verified Documents: Surgical Consent, History and Physical - NPO Status Verified Time NPO: 00:00 - Additional verifications Anesthesia Reactions: No - Airway Assessment C-Spine Mobility Assessed: Yes (mp2) TMJ Mobility Assessed: Yes Dentition: Good Dentition - Neurological Assessment Level of Consciousness: Awake, Alert - Anesthesia Plan Anesthesia Risk discussed: Yes Anesthesia Plan: Verified ASA Class: II Anesthesia Type: MAC [facility] History I have reviewed the patient's past medical history: Yes Medical History: Reports:: Gastrointestinal Bleed, Hiatal Hernia, Hyperlipidemia, Hypertension, Valvular Heart Disease Denies:: Cancer, Diabetes Mellitus Type 1, Diabetes Mellitus Type 2, Internal Pacemaker, MRSA, Seizures *Have you ever received a pneumonia vaccine?: No *Have you received a flu vaccine this season?: Yes Other Medical History: Reports: Arthritis, Cataracts, Hypothyroidism, Other Anesthesia experience/problems:: nac Other Surgeries: Yes: Appendectomy, Cardiac Catheterization, Cholecystectomy, EGD, Hernia Repair, Hysterectomy-Partial. No: Pacemaker Amputation: No Fractures: No - *Social History Last grade of school completed: High school graduate Smoking Status: Never smoker Alcohol Intake: never Substance Use Type: denies use *Occupational Status:: retired Housing: house *Travel in the last 8 weeks: None Family Hx:: No significant family history
== END 2020-10-27 09:44 | disposition home or self-care (01) ==
LOC: OUTP 07:52
PROVIDERS: PCP Family Medicine; Visit Provider Internal Medicine Gastroenterology
PROC: 0DJ08ZZ Inspection of Upper Intestinal Tract, Via Natural or Artificial Opening Endoscopic (ICD-10-PCS; CPT 43235; principal; 2020-10-27 09:00)
DX: Z09 Encounter for follow-up examination after completed treatment for conditions other than malignant neoplasm (principal); K21.9 Gastro-esophageal reflux disease without esophagitis; K22.4 Dyskinesia of esophagus; K44.9 Diaphragmatic hernia without obstruction or gangrene; K31.9 Disease of stomach and duodenum, unspecified; Z87.11 Personal history of peptic ulcer disease; I10 Essential (primary) hypertension; E03.9 Hypothyroidism, unspecified; Z88.5 Allergy status to narcotic agent; Z88.8 Allergy status to other drugs, medicaments and biological substances; Z79.899 Other long term (current) drug therapy
CPT/HCPCS: 43239; 88305; 88342

== ENCOUNTER 2021-04-19 10:10 | Emergency (ER) | payer MEDICARE, SELFPAY ==
[2021-04-19 10:40] VITALS: BP 130/73; PULSE 64; RESP 18; TEMP 36.6; O2SAT 100; BMI 24.0
[2021-04-19 11:13] VITALS: BP 130/73; PULSE 64; RESP 18; TEMP 36.6; O2SAT 100
--- NOTE | 2021-04-19 11:15 | HMH.EDUTC ---
[facility] Disposition Clinical Impression: Exposure to COVID-19 virus Disposition: Home, Self-Care Condition on Discharge: Good Instructions: COVID-19: Protecting Yourself When You're at High Risk, Preventing the Spread of Coronavirus Discharge Instructions Additional Instructions: covid swab was sent to lab, call later today for results. self isolate until test results are known to be negative Referrals: Jack Morelos MD [Primary Care Provider] - Time of Disposition: 11:23 Medical Decision Making - Duy Inquiry Pt receiving controlled substance: No Vital Signs: 04/19/21 10:40 04/19/21 11:13 Temperature 97.8 F 97.8 F Temperature Source Oral Pulse Rate 64 Pulse Rate [Right Brachial] 64 Respiratory Rate 18 18 Blood Pressure 130/73 Blood Pressure [Right Arm] 130/73 Blood Pressure Mean [Right Arm] 92 Blood Pressure Source [Right Arm] Automatic Cuff Blood Pressure Position [Right Arm] Sitting 02 Sat by Pulse Oximetry 100 Oxygen Delivery Method Room Air Orders (Tests/Meds): ORDERS Category Date Time Status Covid-19 Nasal PCR ([facility]) Routine Lab 04/19/21 10:44 Ordered [facility] HPI - General Chief complaint: Urgent Treatment Center Stated complaint: covid exposure Time Seen by Provider: 04/19/21 11:15 Mode of Arrival: Ambulatory Source of Information: Patient Limitations: No Limitations Description of Symptoms (Recalled from Triage Doc. by RN): COVID TEST D/T EXPOSURE. DENIES SYMPTOMS HEENT Symptoms (Recalled from RN notes): No Resp Symptoms (Recalled from RN notes): No Skin Symptoms (Recalled from RN notes): No MS Symptoms (Recalled from RN notes): No Functional Status (Recalled from RN notes): WNL - History of Present Illness Provider Complaint: 85 yr old female presents for covid swab. pt states no symptoms. but was exposed - Related Data Home Medications Medication Instructions Recorded Confirmed levothyroxine 25 mcg tablet 25 mcg PO DAILY tab 09/17/19 10/21/20 Multivit-Min/FA/Lycopen/Lutein 1 each PO DAILY 05/30/20 10/21/20 [Centrum Silver Tablet] Losartan Potassium [Cozaar 100mg 100 mg PO DAILY 10/21/20 10/21/20 Tablets] Psyllium Husk [Metamucil] 425 gm PO DAILY 10/21/20 10/21/20 polyethylene glycoL 3350 [Miralax 17 gm PO DAILY 10/21/20 10/21/20 Powder] Previous Rx's Medication Instructions Recorded diltiazem HCl 180 mg 180 mg PO DAILY #90 cap 09/15/20 capsule,extended release 24 hr hydrochlorothiazide 25 mg tablet 25 mg PO DAILY #90 tab 09/15/20 Allergies Allergy/AdvReac Type Severity Reaction Status Date / Time morphine Allergy Mild ITCHING Verified 09/15/20 12:05 NSAIDS (Non-Steroidal AdvReac Severe Verified 09/15/20 12:05 Anti-Inflamma - Worker's Comp Is this a Worker's Comp case?: No [facility] History - Hepatitis A Screen Drug use history?: No High risk sexual behaviors?: No History of sexually transmitted infection?: No Currently employed?: No Childcare worker?: No Do you have indoor plumbing?: Yes Do you have electricity?: Yes Attestation statement:: This patient has been screened for Hepatitis A risk factors. I have reviewed the patient's past medical history: Yes Medical History: Reports:: Gastrointestinal Bleed, Hiatal Hernia, Hyperlipidemia, Hypertension, Valvular Heart Disease Denies:: Cancer, Diabetes Mellitus Type 1, Diabetes Mellitus Type 2, Internal Pacemaker, MRSA, Seizures Other Medical History: Reports: Arthritis, Cataracts, Hypothyroidism, Other Other Surgeries: Yes: Appendectomy, Cardiac Catheterization, Cholecystectomy, EGD, Hernia Repair, Hysterectomy-Partial. No: Pacemaker Amputation: No Fractures: No - Social History Smoking Status: Never smoker Alcohol Intake: never Substance Use Type: denies use Occupational Status: retired Housing: house Family Hx:: No significant family history ROS Obtained: Yes Systems reviewed as appropriate & no additional complaints - Constitutional Constitutional: Rep
== END 2021-04-19 11:20 | disposition home or self-care (01) ==
PROVIDERS: Emergency Provider Nurse Practitioner Family; PCP Family Medicine
DX: Z20.822 Contact with and (suspected) exposure to COVID-19 (principal); I10 Essential (primary) hypertension; E03.9 Hypothyroidism, unspecified; E78.5 Hyperlipidemia, unspecified
CPT/HCPCS: G0463; 99202; U0003

== ENCOUNTER → 2021-04-27 09:51 | Outpatient (POV) | payer MEDICARE, SELFPAY | PROVIDERS: Visit Provider Nurse Practitioner Family | DX: Z00.00 Encounter for general adult medical examination without abnormal findings (principal) ==

== ENCOUNTER → 2021-12-16 12:29 | Outpatient (CLI) | payer MEDICARE, SELFPAY | PROVIDERS: PCP Family Medicine; Visit Provider Family Medicine | DX: I10 Essential (primary) hypertension (principal); E03.9 Hypothyroidism, unspecified; Z13.220 Encounter for screening for lipoid disorders ==

== ENCOUNTER → 2021-12-18 07:43 | Outpatient (CLI) | payer MEDICARE, SELFPAY ==
[2021-12-18 08:29] LABS: Basophils # 0.1 K/mm3 (0-0.2); Basophils % 1.3 % (0.1-2.0); Eosinophils # 0.3 K/mm3 (0.0-0.4); Eosinophils % 3.9 % (0.1-12.0); Hematocrit 38.9 % (37.0-47.0); Hemoglobin 12.8 g/dL (12.2-16.2); Lymphocytes % 28.2 % (10-50); Mean Corpuscular HGB Conc 32.9 g/dL (31.8-35.4); Mean Corpuscular Hemoglobin 31.7 pg (27.0-31.2); Mean Corpuscular Volume 96.1 fl (81-99); Mean Platelet Volume 7.4 fl (7.4-10.4); Monocytes # 0.6 K/mm3 (0.1-1.0); Monocytes % 8.2 % (1.7-9.3); Neutrophils # 4.2 K/mm3 (1.8-7.8); Neutrophils % 58.3 % (37.0-80.0); Platelet Count 452 K/mm3 (142-424); Red Blood Count 4.05 M/mm3 (4.20-5.40); Red Cell Distribution Width 13.4 % (11.5-17.5); White Blood Count 7.1 K/mm3 (4.8-10.8)
[2021-12-18 10:12] LABS: Alanine Aminotransferase 25 U/L (12-78); Albumin Level 4.2 g/dl (3.5-5.0); Albumin/Globulin Ratio 1.4 (1.1-1.8); Alkaline Phosphatase 75 U/L (38-126); Anion Gap 8.9 mEq/L (5-15); Aspartate Amino Transferase 41 U/L (14-36); Bilirubin,Total 0.5 mg/dl (0.2-1.3); Blood Urea Nitrogen 20 mg/dl (7-17); Calcium 9.6 mg/dl (8.4-10.2); Carbon Dioxide 30 mmol/L (22.0-30.0); Chloride 101 mmol/L (98-107); Chol/HDL Ratio 3.7 (1-3.5); Cholesterol 193 mg/dl (140-200); Estimated Glomerular Filt Rate 80 ml/min (>60); GFR (African American) 96 ML/MIN (>60); Globulin 2.9 g/dL (1.3-3.2); Glucose 93 mg/dl (74-100); HDL Cholesterol 52 mg/dl (40-60); Potassium 3.9 mmoL/L (3.5-5.1); Sodium 136 mmol/L (136-145); Total Protein,Serum 7.1 g/dl (6.3-8.2); Triglycerides 79 mg/dl (30-150); VLDL Cholesterol 16 mg/dL (0-40)
[2021-12-18 10:24] LABS: Direct LDL Cholesterol 103.42 mg/dL (100-129)
== END ==
PROVIDERS: Visit Provider Family Medicine
DX: I10 Essential (primary) hypertension (principal); E03.9 Hypothyroidism, unspecified; Z13.220 Encounter for screening for lipoid disorders
CPT/HCPCS: 36415; 80053; 80061; 84443; 85025

== ENCOUNTER → 2022-04-14 12:58 | Outpatient (CLI) | payer MEDICARE, SELFPAY ==
--- NOTE | 2022-04-14 13:02 | CA_ITS ---
APPROVED REPORT EXAM: Comprehensive 2D, Doppler, and color-flow Echocardiogram Lathe Machine Operator: ESPERANZA Stewart, RVS Ht: 5 ft 6 in Wt: 144lbs BSA: 1.74 BP: 184/84 mmHg Indications: Aortic insufficiency, HTN, HLD 2D Dimensions Aortic Root 2.81 cm LA Volume 76.40 mL Left Atrium 4.74 cm LA Volume Index 43.90 mL/m2 (M/F) 16-34 LVOT 1.96 cm (M/F) 1.5-2.5 M-Mode Dimensions RVDd 2.03 cm (0.9-2.6) LA Diam 4.16 cm (1.9-4.0) LVDd 5.43 cm (3.5-5.7) Ao Diam 3.37 cm (2.0-3.7) LVDs 3.43 cm (3.5-5.7) IVSd 0.96 cm (0.6-1.1) PWd 0.89 cm (0.6-1.1) EF (Teich) 66.10% EPSs 1.26 cm FS 36.80% EDV (Teich) 143.10 mL TAPSE 1.18 (<1.7) ESV (Teich) 48.50 mL LV Diastology E Decel Time 177.00 (160-240 msec) E/A Ratio 0.66 MED E' 5.40 (< 7 cm/sec) MED A' 9.70 cm/s E'/MED E' Ratio 10.65 (>14) LAT E' 8.20 (<10 cm/sec) LAT A' 10.50 cm/s E/LAT E' Ratio 7.01 (>14) Pulm Vein s 34.00 cm/sec Pulm Vein d 21.00 cm/sec Ar-A Duration 97.00 msec Aortic Valve LVOT Max 104.00 (70-110 cm/s) LVOT VTI 25.72 cm AoV Peak Chevy. 144.00 (50-130 cm/s) AI PHT 398.00 ms AO Peak GR. 8.30 mmHg AO Mean GR. 4.00 (<5 mmHg) AO VTI 32.75 (18-25 cm) BROOK (VTI) 2.37 (2.5-4.5 cm2) Mitral Valve MV A Velocity 87.00 (40-130 cm/s) E/A Ratio 0.66 MV Decel. Time 177.00 (160-240 ms) MV Mean Gr. 1.20 (<2mmHg) MV PHT 83.00 ms Pulmonary Valve PV Peak Velocity 70.00 (50-150 cm/s) CA End VMAX 215.00 cm/s Tricuspid Valve TR P. Velocity 248.00 cm/s RAP Estimate 10.00 mmHg RVSP 34.60 mmHg Left Ventricle Left atrium is mildly enlarged, left ventricle is normal size mild concentric left ventricular hypertrophy, estimated ejection fraction 55% with no regional wall motion abnormality, grade 1 diastolic dysfunction seen without tissue Doppler evidence of raise left atrial pressure. Right Ventricle Right atrium and right ventricle are mildly enlarged with normal contractility. Aortic Valve Aortic valve is thickened and calcified without aortic stenosis, there is moderate aortic insufficiency. Mitral Valve Mitral valve leaflets are minimally thickened, there is mild mitral regurgitation. Tricuspid Valve Tricuspid valve grossly normal, there is mild tricuspid regurgitation, calculated right ventricular systolic pressure 34 mmHg. Pulmonic Valve Pulmonic valve is poorly visualized. Great Vessels Aortic root is normal size. Inferior vena cava is poorly visualized. Pericardium No significant pericardial effusion noted. Conclusion 1. Mild biatrial enlargement, normal left ventricular size, mild concentric left ventricular hypertrophy, estimated ejection fraction 55% with no regional wall motion abnormality, grade 1 diastolic dysfunction seen without tissue Doppler evidence of raise left atrial pressure. 2. Mildly enlarged right ventricle with normal contractility. 3. Moderate aortic, mild mitral and tricuspid regurgitation. 4. No significant pericardial effusion. 5. Inferior vena cava is poorly visualized. Electronically signed by : Jose L Tubbs MD 04/14/2022 17:33:00
== END ==
PROVIDERS: PCP Family Medicine; Visit Provider Nurse Practitioner
DX: E78.2 Mixed hyperlipidemia (principal); I10 Essential (primary) hypertension; I35.1 Nonrheumatic aortic (valve) insufficiency; I73.00 Raynaud's syndrome without gangrene; N28.9 Disorder of kidney and ureter, unspecified
CPT/HCPCS: 93306

== ENCOUNTER → 2022-08-13 07:50 | Outpatient (CLI) | payer MEDICARE, SELFPAY ==
--- NOTE | 2022-08-13 07:56 | XR_ITS ---
FINAL REPORT CLINICAL HISTORY: heel pain FINDINGS: 3 views of the right foot were obtained. There is no acute fracture or dislocation. There is moderate hallux valgus deformity. There is mild narrowing of the 1st MTP joint. The soft tissues are unremarkable. IMPRESSION: No acute process. Reviewed, Interpreted and Dictated by Tim Michel MD Transcribed by Rigoberto Parr Authenticated and [facility]
--- NOTE | 2022-08-13 07:56 | XR_ITS ---
FINAL REPORT CLINICAL HISTORY: heel pain FINDINGS: 3 views of the left foot were obtained. There is no acute fracture or dislocation. The joint spaces are intact. There is moderate hallux valgus deformity. There are 2 linear densities in the medial hindfoot inferior to the medial malleolus with the largest measuring up to 2 cm. IMPRESSION: Linear densities in the medial hindfoot may represent foreign bodies. Correlate with site of symptoms. Reviewed, Interpreted and Dictated by Tim Michel MD Transcribed by Rigoberto Parr Authenticated and . [facility]
== END ==
PROVIDERS: PCP Family Medicine; Visit Provider Podiatrist
DX: M79.671 Pain in right foot (principal); M79.672 Pain in left foot
CPT/HCPCS: 73630

== ENCOUNTER → 2023-01-05 14:16 | Outpatient (CLI) | payer MEDICARE, SELFPAY ==
--- NOTE | 2023-01-05 14:22 | CA_ITS ---
FINAL REPORT TECHNIQUE: Color Doppler, duplex Doppler and compression sonography of the right lower extremity venous system was performed. CLINICAL HISTORY: SWELLING RT CALF X SEVERAL WKS FINDINGS: There is no evidence of deep venous thrombosis from the level of the groin to the calf. The veins are patent and compressible. IMPRESSION: No evidence of deep venous thrombosis right lower extremity. Reviewed, Interpreted and Dictated by Kamar Fontanez III, MD Transcribed by Mary Jo Fong Authenticated and [facility]
== END ==
PROVIDERS: PCP Family Medicine; Visit Provider Family Medicine
DX: R60.0 Localized edema (principal); M79.661 Pain in right lower leg
CPT/HCPCS: 93971

== ENCOUNTER 2024-01-02 12:26 | Outpatient (CLI) | payer MEDICARE, SELFPAY ==
--- NOTE | 2024-01-02 12:41 | ECG_ITS ---
APPROVED REPORT Exam: Resting ECG HR:60 bpm ECG Measurements Heart Rate 60 AXES WY 174 P 74 QRSd 99 QRS 85 QT 441 T 29 QTc 442 Conclusion SINUS RHYTHM NORMAL ECG UNCONFIRMED REPORT Electronically signed by : Harley Lee MD 01/02/2024 17:36:36
== END 2024-01-02 23:59 | disposition home or self-care (01) ==
PROVIDERS: PCP Family Medicine; Visit Provider Nurse Practitioner Family
DX: R07.9 Chest pain, unspecified (principal)
CPT/HCPCS: 93005

== ENCOUNTER 2024-01-16 10:37 | Emergency (ER) | payer MEDICARE, SELFPAY ==
[2024-01-16] VITALS (9 sets, daily range): BP systolic 169–199; BP diastolic 66–92; PULSE 57–96; RESP 11–18; TEMP 36.5–36.7; O2SAT 96–99; BMI 21.1
--- NOTE | 2024-01-16 | ECG_ITS ---
APPROVED REPORT Exam: Resting ECG HR:64 bpm ECG Measurements Heart Rate 64 AXES AL 180 P -5 QRSd 99 QRS 25 QT 403 T 59 QTc 413 Conclusion SINUS RHYTHM NORMAL ECG UNCONFIRMED REPORT Electronically signed by : GERMAINE TOWNSEND, 01/18/2024 05:26:54
--- NOTE | 2024-01-16 10:45 | XR_ITS ---
FINAL REPORT CLINICAL HISTORY: chest pain COMPARISON: None FINDINGS: A single portable view of the chest was obtained. The heart size and pulmonary vascularity are within normal limits. The mediastinum is within normal limits. There are bibasilar opacities which are favored to represent atelectasis over pneumonia. The bony thorax is intact. IMPRESSION: Bibasilar opacities favor atelectasis over pneumonia. Reviewed, Interpreted and Dictated by Kamar Fontanez III, MD Transcribed by Yas Perez Authenticated and . [facility]
--- NOTE | 2024-01-16 11:02 | PC.NURSE ---
pt was given a warm blanket
[2024-01-16 11:03] LABS: Chloride 100 mmol/L (98-107); Sodium 134 mmol/L (136-145)
[2024-01-16 11:06] LABS: Alanine Aminotransferase 36 U/L (12-78); Albumin Level 4.1 g/dl (3.5-5.0); Albumin/Globulin Ratio 1.3 (1.1-1.8); Alkaline Phosphatase 95 U/L (38-126); Aspartate Amino Transferase 46 U/L (14-36); Bilirubin,Total 0.6 mg/dl (0.2-1.3); Blood Urea Nitrogen 16 mg/dl (7-17); Calcium 10.2 mg/dl (8.4-10.2); Carbon Dioxide 33 mmol/L (22.0-30.0); Creatinine Clearance Estimated 39 mL/min (50-200); Estimated Glomerular Filt Rate 68 ml/min (>60); GFR (African American) 82 ML/MIN (>60); Globulin 3.1 g/dL (1.3-3.2); Glucose 95 mg/dl (74-100); Total Protein,Serum 7.2 g/dl (6.3-8.2)
[2024-01-16 11:09] LABS: Basophils # 0.1 K/mm3 (0-0.2); Basophils % 1.1 % (0.1-2.0); Eosinophils # 0.4 K/mm3 (0.0-0.4); Eosinophils % 3.9 % (0.1-12.0); Hematocrit 40.6 % (37.0-47.0); Hemoglobin 13.2 g/dL (12.2-16.2); Lymphocytes # 3.3 K/mm3 (0.7-4.5); Lymphocytes % 31.2 % (10-50); Mean Corpuscular HGB Conc 32.4 g/dL (31.8-35.4); Mean Corpuscular Hemoglobin 30.9 pg (27.0-31.2); Mean Corpuscular Volume 95.4 fl (81-99); Mean Platelet Volume 7.5 fl (7.4-10.4); Monocytes # 0.7 K/mm3 (0.1-1.0); Monocytes % 6.7 % (1.7-9.3); Neutrophils # 6.1 K/mm3 (1.8-7.8); Neutrophils % 57.1 % (37.0-80.0); Platelet Count 536 K/mm3 (142-424); Red Blood Count 4.26 M/mm3 (4.20-5.40); Red Cell Distribution Width 13.8 % (11.5-17.5); White Blood Count 10.7 K/mm3 (4.8-10.8)
--- NOTE | 2024-01-16 11:12 | ED_ITS ---
Discharge Plan Disposition Patient Disposition: Left Against Medical Advice Chief Complaint: Chest Pain Prescriptions Prescriptions: No Action donepezil 5 mg tablet 5 mg PO DAILY diltiazem HCl 180 mg capsule,extended release 24hr 180 mg PO DAILY hydrochlorothiazide 25 mg tablet 37.5 mg PO DAILY Qty: 90 3RF levothyroxine 25 mcg tablet 25 mcg PO DAILY losartan 100 mg tablet 100 mg PO DAILY Qty: 90 3RF polyethylene glycol 3350 119 GM powder 17 gm PO DAILY psyllium husk 660 GM powder 425 gm PO DAILY ghspjsko-ast-BK-lycopen-lutein 1 EACH tablet 1 each PO DAILY Referrals Follow up/Referrals: Provider,Referral, MD [Primary Care Provider] - See instructions Activity Restrictions/Add. Instructions Additional Instructions/Restrictions: You are leaving AGAINST MEDICAL ADVICE today. If new or worsening symptoms or anytime you wish to return to the emergency department do not hesitate to return for continued evaluation. Please follow-up as soon as you are able with cardiology on outpatient basis if you choose not to return. Clinical Impressions Clinical Impression: Chest pain Discharge ED Provider: Naldo Salazar [facility] General Chief Complaint: Chest Pain Stated Complaint: cp Time Seen by Provider: 01/16/24 10:40 Mode of Arrival: Ambulatory Source of Information: Patient Limitations: No Limitations Description of Symptoms (Recalled from ER Triage Doc. by RN): pt presents to ED c/o chest pain x 2 days. per report pt has seen her PCP and is to have a stress test tomorrow. pt states pain is located in the center of her chest and radiates to left arm. pt reports pain is intermittent and sharp. deneis n/v. History of Present Illness HPI narrative: Patient is a 88-year-old female who presents emergency department for evaluation of chest pain. Onset was subacute, over the last couple weeks, waxing waning, substernal left-sided radiating into her left upper extremity. It does not radiate through to her back. Denies trauma. No other acute complaints at this time. Currently chest pain is not so bad . However it is persistent. Patient has taken her antihypertensives this morning and is scheduled to have a stress test tomorrow. Per chart review patient has a past medical history of hypertension, hyperlipidemia. Related Data Home Medications Medication Instructions Recorded Confirmed levothyroxine 25 mcg tablet 25 mcg PO DAILY Thyroid 09/17/19 04/11/23 movcxfub-bra-gwfpq acid 0.4 1 each PO DAILY Supplement 05/30/20 04/11/23 mg-lycopene 300 mcg-lutein 250 mcg tablet polyethylene glycol 3350 17 17 gm PO DAILY bowels 10/21/20 04/11/23 gram/dose oral powder psyllium husk 3.4 gram/5.4 gram 425 gm PO DAILY bowels 10/21/20 04/11/23 oral powder diltiazem HCl 180 mg 180 mg PO DAILY 04/11/23 04/11/23 capsule,extended release 24 hr donepezil 5 mg tablet 5 mg PO DAILY 04/11/23 04/11/23 Previous Rx's Medication Instructions Recorded hydrochlorothiazide 25 mg tablet 37.5 mg (1.5 x 25 mg) PO DAILY 04/11/23 diuretic #90 tabs losartan 100 mg tablet 100 mg PO DAILY #90 tabs 04/15/23 Allergies Allergy/AdvReac Type Severity Reaction Status Date / Time morphine Allergy Mild ITCHING Verified 04/11/23 10:38 NSAIDS (Non-Steroidal AdvReac Severe Verified 04/11/23 10:38 Anti-Inflamma PFSH [facility] Disclaimer: The information contained in this section may have been updated after the patient was seen, as this information can be updated by other users. Medical History Moderate aortic regurgitation Social History Smoking Status: Never smoker second hand exposure: No alcohol intake: never substance use type: denies use current occupational status: retired Travel in the last 8 weeks: Inside the [facility] housing: house current occupational exposures/hazards: No caffeine: No ROS Obtained: Yes Systems reviewed as appropriate & no additional complaints except as documented Physical Exam General General appearance: alert and in no apparent distress Head Head exam: atraumatic and normocephalic Eye Eye exam: Present PERRL ENT ENT exam: Present mucous membranes moist Neck Neck exam: Present normal inspection Chest Chest inspection: Present normal inspection and symmetric chest wall rise Respiratory Respiratory exam: Present normal lung sounds bilaterally; Absent respiratory distress Cardiovascular Cardiovascular exam: Present regular rate and normal rhythm Abdominal Exam Abdominal exam: Present soft; Absent tenderness Extremities Exam Extremities exam: Present normal inspection and other (No asymmetric edema of the left upper extremity compared to the right, palpable left radial pulse. No discoloration or palpable cord in the proximal arm on the left.) Neurological Exam Neurological exam: Present alert Psychiatric Psychiatric exam: Present normal affect Skin Skin exam: Present warm and dry HEART Score HEART Score HEART Score assessment performed?: Yes History (anamnesis): Moderately suspicious ECG: Normal Age: >65 years Risk factors: 1-2 risk factors Troponin: </= normal limit HEART Score: 4 Critical Care Critical Care Time Critical Care Time: No Medical Decision Making Duy Inquiry Pt receiving controlled substance: No Vital Signs Vital Signs: 01/16/24 10:40 01/16/24 10:45 01/16/24 11:01 Temperature 97.7 F Temperature Source Oral Pulse Rate 63 58 L Pulse Rate [Right Radial] 64 Respiratory Rate 18 13 Blood Pressure 182/77 H Blood Pressure [Right Arm] 199/79 H Blood Pressure Mean Blood Pressure Mean [Right Arm] 119 Blood Pressure Source Blood Pressure Source [Right Arm] Automatic Cuff Blood Pressure Position Blood Pressure Position [Right Arm] Sitting 02 Sat by Pulse Oximetry 98 97 Oxygen Delivery Method Room Air 01/16/24 11:02 01/16/24 11:30 01/16/24 12:00 Temperature Temperature Source Pulse Rate 59 L 57 L 57 L Pulse Rate [Right Radial] Respiratory Rate 16 15 13 Blood Pressure 182/77 H 175/75 H 169/66 H Blood Pressure [Right Arm] Blood Pressure Mean Blood Pressure Mean [Right Arm] Blood Pressure Source Automatic Cuff Blood Pressure Source [Right Arm] Blood Pressure Position Sitting Blood Pressure Position [Right Arm] 02 Sat by Pulse Oximetry 96 97 96 Oxygen Delivery Method Room Air 01/16/24 12:30 01/16/24 13:01 Temperature Temperature Source Pulse Rate 65 58 L Pulse Rate [Right Radial] Respiratory Rate 16 11 L Blood Pressure 177/75 H 173/92 H Blood Pressure [Right Arm] Blood Pressure Mean 109 Blood Pressure Mean [Right Arm] Blood Pressure Source Blood Pressure Source [Right Arm] Blood Pressure Position Blood Pressure Position [Right Arm] 02 Sat by Pulse Oximetry 98 96 Oxygen Delivery Method Room Air Lab Data Labs: Lab Results 01/16/24 10:43: WBC 10.7, RBC 4.26, Hgb 13.2, Hct 40.6, MCV 95.4, MCH 30.9, MCHC 32.4, RDW 13.8, Plt Count 536 H, MPV 7.5, Neut % (Auto) 57.1, Lymph % (Auto) 31.2, [place] % (Auto) 6.7, Eos % (Auto) 3.9, Baso % (Auto) 1.1, Neut # (Auto) 6.1, Lymph # (Auto) 3.3, [place] # (Auto) 0.7, Eos # (Auto) 0.4, Baso # (Auto) 0.1, S odium 134 L, Potassium 4.0, Chloride 100, Carbon Dioxide 33 H, Anion Gap 5.0, BUN 16, Creatinine 0.80, Estimated Creat Clear 39, Estimated GFR 68, Est GFR ( Amer) 82, Glucose 95, Calcium 10.2, Total Bilirubin 0.6, AST 46 H, ALT 36, Alkaline Phosphatase 95, Troponin I < 0.01, Total Protein 7.2, Albumin 4.1, Globulin 3.1, Albumin/Globulin Ratio 1.3 01/16/24 10:43 01/16/24 10:43 Response Orders (Tests/Meds): ED MEDICATIONS Generic Name Dose Route Start Last Admin Trade Name Freq PRN Reason Stop Dose Admin Nitroglycerin 0.4 mg 01/16/24 11:11 Nitroglycerin 0.4mg Sl Tablet SL 02/15/24 11:10 Q5MINP PRN Chest Pain Sodium Chloride 10 ml 01/16/24 10:45 Sodium Chloride 0.9% 10ml Flush Syringe IV 02/15/24 10:44 NEEDED PRN Maintain IV Site Discontinued Medications Generic Name Dose Route Start Last Admin Trade Name Freq PRN Reason Stop Dose Admin Aspirin 324 mg 01/16/24 11:11 01/16/24 11:14 Aspirin 81mg Chewable Tablet PO 01/16/24 11:12 324 mg ONCE ONE Administration ORDERS Category Date Time Status Cardiology Consult [Consult to Cardiology] [CONS] Cons 01/16/24 11:42 Active Routine XR chest portable Stat Exams 01/16/24 10:45 Completed Complete Blood Count Auto Diff Stat Lab 01/16/24 10:43 Completed Comprehensive Metabolic Panel Stat Lab 01/16/24 10:43 Completed Troponin I Q3H Lab 01/16/24 14:00 Ordered Troponin I Q3H Lab 01/16/24 17:00 Ordered Troponin I Stat Lab 01/16/24 10:43 Completed ECG Data Tracing #1: ECG Narrative: Independently interpreted by me, rate is 64, rhythm is regular, axis is normal, no ST elevation in anatomical contiguous leads, QTc 413. MDM Narrative Medical Decision Narrative: In summary patient is a 88-year-old female with past medical history described above who presents emergency department for evaluation of chest pain. Patient is hemodynamically stable nontoxic-appearing upon arrival, afebrile. Differential diagnosis includes ACS, noncardiac chest pain, among others. No concern for DVT of upper extremity given no asymmetric edema or discoloration or palpable cords, no concern for aortic dissection given that it does not radiate through to the back, subacute nature of this patient would be probably much more critically ill and has a bounding pulse in her left upper extremity. Workup will be conducted with hematologic labs, chest x-ray, EKG, troponin. Initial inventions include aspirin and nitroglycerin. Initial workup reviewed by me, hematologic labs are nonactionable, mild hyponatremia for which no intervention is necessary, initial troponin undetectably low. Chest x-ray bibasilar opacities favor atelectasis. Case was discussed with cardiology who evaluated the patient, they offered patient admission who declined. I think admission is in the patient's best interest however patient wishes to go home. Given this risk and benefits of staying for full cardiac workup given her age and comorbidities were discussed, patient was able to understand her decision, reason through her decision, appreciate the consequences of her decision making expressed choice therefore having capacity. Patient was instructed to return to the emergency department at any time should she wish to be admitted and have continued cardiac workup.
[2024-01-16] MEDS: ASPIRIN 81MG CHEWABLE TABLET 324 MG PO (11:14)
[2024-01-16 11:29] LABS: Troponin I < 0.01 ng/ml (0.00-0.034)
--- NOTE | 2024-01-16 11:46 | PC.NURSE ---
called cards for consult
--- NOTE | 2024-01-16 12:20 | PC.NURSE ---
ROUNDED ON PT HE'S ASLEEP WITH VISITOR AT BS NO NEEDS AT THIS TIME,CALL LIGHT IN REACH
--- NOTE | 2024-01-16 12:20 | INFXCTL.NOTE ---
ROUNDED ON PT NO NEEDS AT THIS TIME,CALL LIGHT IN REACH
--- NOTE | 2024-01-16 12:48 | PC.NURSE ---
Reese from cardiology at [facility]
--- NOTE | 2024-01-16 13:08 | PC.NURSE ---
pt called out to have someone check her IV, this nurse entered room to check IV. IV flushes and draws blood. IV is located in ac, offered to change IV site but did inform patient that certain test require IV to be in AC. pt stating she is ready to be discharged. pt educated on the need to obtain 2hr troponin at 1345. pt was educated after triage on being here for 2 hours for cardiac workup when she first arrived. pt states I'm never coming back to the hospital again. Apologized to patient on wait time.
--- NOTE | 2024-01-16 13:13 | PC.NURSE ---
Dr. Salazar at bedside speaking with pt and family.
--- NOTE | 2024-01-16 13:15 | PC.NURSE ---
MD states pt to sign out AMA at this time.
--- NOTE | 2024-01-16 13:20 | PC.NURSE ---
pt educated on risks of leaving AMA. pt instructed to return to the ED at any time. pt states I have an appointment in the morning.
--- NOTE | 2024-01-16 13:52 | P.CONCA_ITS ---
History of Present Illness History of Present Illness Consult date: 01/16/24 Requesting physician: Naldo Salazar Consult reason: chest pain Chief complaint: chest pain History of present illness: This is an 88 year old white female with past medical hx of HTN, HLD and aortic regurgitation whom presented to ER with complaints of left anterior chest pain radiating towards shoulder intermittently x 2 months. Patient reports she is scheduled for a stress test tomorrow and to see her pcp Dr. Rodriguez. She states pain became worse this morning prompting her to go to ER. Denies associated soa or dizziness. Denies worsening symptoms with activity. EKG upon arrival to ED shows NSR without acute ischemic changes noted. Troponin was negative. Cardiology was asked to consult. Patient denies pain currently. Repor ts mild discomfort to left shoulder with palpation. [facility] Disclaimer: The information contained in this section may have been updated after the patient was seen, as this information can be updated by other users. Medical History Moderate aortic regurgitation Social History Smoking Status: Never smoker second hand exposure: No alcohol intake: never substance use type: denies use current occupational status: retired Travel in the last 8 weeks: Inside the [place] housing: house current occupational exposures/hazards: No caffeine: No Review of Systems *Cardiovascular Cardiovascular: Reports chest pain and Denies dyspnea *Respiratory Respiratory: Denies dyspnea Exam Data for Last 24 hours Vital signs and Labs for Last 24 Hours: Temp Pulse Resp BP Pulse Ox O2 Del Method 98.0 F 96 H 18 173/92 H 96 Room Air 01/16/24 13:21 01/16/24 13:21 01/16/24 13:21 01/16/24 13:21 01/16/24 13:01 01/16/24 13:21 Laboratory Results - last 24 hr 01/16/24 10:43: WBC 10.7, RBC 4.26, Hgb 13.2, Hct 40.6, MCV 95.4, MCH 30.9, MCHC 32.4, RDW 13.8, Plt Count 536 H, MPV 7.5, Neut % (Auto) 57.1, Lymph % (Auto) 31.2, [place] % (Auto) 6.7, Eos % (Auto) 3.9, Baso % (Auto) 1.1, Neut # (Auto) 6.1, Lymph # (Auto) 3.3, [place] # (Auto) 0.7, Eos # (Auto) 0.4, Baso # (Auto) 0.1, Sodium 134 L, Potassium 4.0, Chloride 100, Carbon Dioxide 33 H, Anion Gap 5.0, BUN 16, Creatinine 0.80, Estimated Creat Clear 39, Estimated GFR 68, Est GFR ( Amer) 82, Glucose 95, Calcium 10.2, Total Bilirubin 0.6, AST 46 H, ALT 36, Alkaline Phosphatase 95, Troponin I < 0.01, Total Protein 7.2, Albumin 4.1, Globulin 3.1, Albumin/Globulin Ratio 1.3 I & O for Last 24 hours: Intake & Output 01/13/24 01/14/24 01/15/24 01/16/24 23:59 23:59 23:59 23:59 Weight 135 lb *Routine Cardiovascular Exam Cardiovascular: Present RRR, Normal S1 and Normal S2 Meds Home Medications and Allergies Home Medications Medication Instructions Recorded Confirmed Type levothyroxine 25 mcg tablet 25 mcg PO DAILY Thyroid 09/17/19 04/11/23 History ckbyasnw-caw-mxuoz acid 0.4 1 each PO DAILY Supplement 05/30/20 04/11/23 History mg-lycopene 300 mcg-lutein 250 mcg tablet polyethylene glycol 3350 17 17 gm PO DAILY bowels 10/21/20 04/11/23 History gram/dose oral powder psyllium husk 3.4 gram/5.4 gram 425 gm PO DAILY bowels 10/21/20 04/11/23 History oral powder diltiazem HCl 180 mg 180 mg PO DAILY 04/11/23 04/11/23 History capsule,extended release 24 hr donepezil 5 mg tablet 5 mg PO DAILY 04/11/23 04/11/23 History hydrochlorothiazide 25 mg tablet 37.5 mg (1.5 x 25 mg) PO DAILY 04/11/23 04/11/23 Rx diuretic #90 tabs losartan 100 mg tablet 100 mg PO DAILY #90 tabs 04/15/23 Rx New Prescriptions to Start Prescriptions: Allergies Allergy/AdvReac Type Severity Reaction Status Date / Time morphine Allergy Mild ITCHING Verified 04/11/23 10:38 NSAIDS (Non-Steroidal AdvReac Severe Verified 04/11/23 10:38 Anti-Inflamma Assessment and Plan *Assessment and plan (1) Moderate aortic regurgitation: Status: Chronic Category: Medical Code(s): I35.1 - Nonrheumatic aortic (valve) insufficiency (2) Chest pain: Status: Acute Qualifiers: Chest pain type: precordial pain Qualified Code(s): R07.2 - Precordial pain Category: Medical Code(s): R07.9 - Chest pain, unspecified Plan Chest pain Hx of moderate AR -Trop negative -EKG negative for acute ischemic changes -Echo from 2021- EF 55, Moderate AR -Patient reports she is scheduled for stress test tomorrow -Offered admission for further eval for ischemic disease, patient declined. Offered outpatient cards office visit tomorrow morning, patient declined, states she will just have her stress test and see Dr. Rodriguez. Discussed risks vs. benefits of each option with patient. CV summary: Patient is pain free on exam, ekg is negative for acute changes, trop negative. Still would like to keep patient for echo and further testing, patient declines. Has scheduled stress test and pcp follow up tomorrow per her report. Patient advised if any symptoms change or become worse, she needs to re turn to ER immediately. She is agreeable.
== END 2024-01-16 13:23 | disposition left against medical advice (07) ==
PROVIDERS: Emergency Provider Emergency Medicine
DX: I35.1 Nonrheumatic aortic (valve) insufficiency (principal); R07.2 Precordial pain
CPT/HCPCS: 71045; 80053; 84484; 85025; 93005; 99284

== ENCOUNTER 2024-01-23 06:46 | Outpatient (CLI) | payer MEDICARE, SELFPAY ==
--- NOTE | 2024-01-23 | CA_ITS ---
APPROVED REPORT EXAM: Comprehensive 2D, Doppler, and color-flow Echocardiogram Livestock Speculator: Pam Reed RT(R) Ht: 5 ft 6 in Wt: 141lbs BSA: 1.72 BP: 173/92 mmHg Indications: cp, mod AI, HTN, hyperlipidemia 2D Dimensions LVEF (Gill's) 59.60 % F: 54 - 74 LV Volume 105.80 mL F: 46 - 106 LV Volume Index 61.2 mL/m2 F: 29 - 61 LA Volume 38.00 mL LA Volume Index 21.97 mL/m2 (M/F) 16-34 EF AP4 65.60 % EF AP2 52.4 % EF BP 59.6 % GL Strain -18.6 % M-Mode Dimensions RVDd 3.02 cm (0.9-2.6) LA Diam 4.16 cm (1.9-4.0) LVDd 5.25 cm (3.5-5.7) LVDs 3.19 cm (3.5-5.7) IVSd 0.92 cm (0.6-1.1) PWd 0.82 cm (0.6-1.1) EF (Teich) 69.30% FS 39.20% EDV (Teich) 132.40 mL ESV (Teich) 40.60 mL LV Diastology E Decel Time 227 (160-240 msec) E/A Ratio 0.6 Aortic Valve AI PHT 544.00 ms Mitral Valve MV E Max Chevy. 53.0 (40-130 cm/s) MV A Velocity 94.0 (40-130 cm/s) E/A Ratio 0.56 MV PHT 66.0 ms Tricuspid Valve TR P. Velocity 216.00 cm/s RAP Estimate 10.00 mmHg RVSP 28.60 mmHg Left Ventricle The left ventricle is normal size. The left ventricular systolic function is normal. The left ventricular ejection fraction is within the normal range. There is increased LV wall thickness. There is normal LV segmental wall motion. Transmitral Doppler flow pattern suggests impaired LV relaxation. LVEF is 55%. Right Ventricle The right ventricle is normal size. The right ventricular systolic function is normal. Atria Left atrium is mildly dilated. Right atrium is mildly dilated. There is no Doppler evidence of interatrial shunt. Aortic Valve The aortic valve is mildly thickened. There is no aortic valvular stenosis. Mild to moderate aortic regurgitation. Mitral Valve The mitral valve is normal in structure. No evidence of mitral valve stenosis. Mild mitral regurgitation. Tricuspid Valve The tricuspid valve leaflets are thin and pliable. Mild tricuspid regurgitation. RVSP is normal. Pulmonic Valve The pulmonary valve is normal in structure. Trace pulmonic regurgitation. Great Vessels IVC is normal in size and collapses >50% with inspiration. Other Information Study Quality: Fair Conclusion Normal biventricular size and function. Mild biatrial dilation. Mild to moderate AI. Mild MR, mild TR. Electronically signed by : Anisha Mendez MD 01/25/2024 10:28:39
--- NOTE | 2024-01-23 | CA_ITS ---
APPROVED REPORT Exam: Pharmacologic Technologist: Kaylyn Fallon, Ht: 5 ft 6 in Wt: 138 lbs BSA: 1.71 m2 HR: 59 bpm BP: 131/71 mmHg Rhythm: NSR Medical History Medical History: HTN Medications: Levothyroxine,,,,, Losartan,,,,, Hydrochlorothiazide,,,,, DONEPEZIL,,,,, Multivitamin,,,,, PolyethYLENE GLYCOL,,,,, DilTiazem HCI,,,,, Allergies: MORPHINE, NSAIDS Cardiac Risk Factors: HTN Stress Test Details Test: LEXISCAN HR Resting HR: 65 bpm Max Heart Rate (APMHR): 134 bpm Max HR Achieved: 81 bpm Target HR (85% APMHR): 114 bpm % of APMHR: 60 Recovery HR: 66 bpm BP Resting BP: 131/71 mmHg Max BP: 176/65 mmHg Recovery BP: 165.0/66.0 mmHg ECG Resting ECG: NSR Stress ECG: None Arrhythmia: None Clinical Exercise duration: 04:01 min Highest Stage Achieved: Stress ECG Conclusion Patient had no symptoms. Ectopy: None ST changes: None Conclusion: Unremarkable Lexiscan stress test. Myoview images reported separately. Test Summary REST 05:10 . . 65 . 131/ 71 . . Stage 1 01:00 . . 66 . . . . Stage 2 01:00 . . 71 . 139/ 59 . . Stage 3 01:00 . . 74 . 146/ 65 . . Stage 4 01:00 . . 71 . 151/ 65 . . Stage 4 01:01 . . 72 . 151/ 65 . Stop exercise at 04:01 RECOVERY 01:00 . . 76 . 160/ 68 . . RECOVERY 02:00 . . 70 . 169/ 67 . . RECOVERY 03:00 . . 70 . 169/ 67 . . RECOVERY 04:00 . . 67 . 176/ 65 . . RECOVERY 04:34 . . 72 . 165/ 66 . . Electronically signed by : Anisha Mendez MD 01/24/2024 12:57:08
--- NOTE | 2024-01-23 06:55 | NM_ITS ---
APPROVED REPORT Exam: Nuclear Stress Test Indication: Chest pain, HTN Patient Location: Outpatient Stress Tech: Kaylyn Fallon [place] Tech:Maia Fish, ARRT, RT (R)(N) Ht: 5 ft 6 in Wt: 140 lbs Bra Size: B HR: 65 bpm BP: 131/71 mmHg BSA: 1.72 m2 Rhythm: NSR TID: 1.02 BMI: 22.5 History: Chest pain, HTN Procedure: Patient received 0.4 mg of intravenous Lexiscan, resting heart rate 65 bpm, resting blood pressure 131/71 mmHg, with Lexiscan maximum heart rate achieved was 81 bpm which is % of the maximum predicted heart rate and blood pressure was 176/65 mmHg. With Lexiscan, patient denied any complaint of chest pain. Cardiac Stress and Resting SPECT Images: Cardiac Stress and Resting SPECT images were obtained using technetium 99m Myoview 29.0 mCi stress and 10.67 mCi at rest. The patient is unable to lie on her abdomen. Therefore, prone stress imaging could not be performed. This may affect the diagnostic interpretation of the study findings. Resting and stress imaging in supine positions demonstrate medium sized, mild, fixed perfusion defect in the mid to distal anterior LV wall. Gated imaging demonstrates normal global LV systolic function. There is mild hypokinesis of the distal anterior LV wall. LVEF is calculated at 57%. Conclusion: Medium sized, mild, fixed perfusion defect in the mid to distal anterior LV wall. Gated imaging demonstrates normal global LV systolic function. There is mild hypokinesis of the distal anterior LV wall. LVEF is calculated at 57%. Electronically signed by : Anisha Mendez MD 01/24/2024 12:58:32
[2024-01-23] MEDS: SODIUM CHLORIDE 0.9% 10ML SYR (RAD ONLY) 10 ML IV ×2 (09:20→09:21)
[2024-01-23] MEDS: REGADENOSON 0.4MG/5ML SYRINGE 0.400000000000000022 MG IV (09:20)
[2024-01-23] MEDS: ISOTOPE MYOVIEW (PER STUDY) 1 DOSE IV (09:21)
== END 2024-01-23 23:59 | disposition home or self-care (01) ==
LOC: RAD 06:47
PROVIDERS: PCP Family Medicine; Visit Provider Family Medicine
DX: R07.9 Chest pain, unspecified (principal); I10 Essential (primary) hypertension; R60.0 Localized edema
CPT/HCPCS: 78452; 93017; 93018; 93306; A9502; J2785

== ENCOUNTER 2024-02-07 12:25 | Outpatient (CLI) | payer MEDICARE, SELFPAY ==
--- NOTE | 2024-02-07 12:33 | XR_ITS ---
FINAL REPORT CLINICAL HISTORY: LT SHOULDER PAIN, joint pain no injury COMPARISON: None FINDINGS: LEFT SHOULDER 4 views of the left shoulder were obtained. There is no acute fracture or dislocation. Visualized joint spaces are normally aligned. Soft tissues are unremarkable. IMPRESSION: No acute bony abnormality. Reviewed, Interpreted and Dictated by Tim Michel MD Transcribed by Yas Perez Authenticated and [facility]
== END 2024-02-07 23:59 | disposition home or self-care (01) ==
LOC: RAD 12:26
PROVIDERS: PCP Family Medicine; Visit Provider Family Medicine
DX: M25.512 Pain in left shoulder (principal)
CPT/HCPCS: 73030

== ENCOUNTER 2024-02-10 08:40 | Outpatient (CLI) | payer MEDICARE, SELFPAY ==
--- NOTE | 2024-02-10 08:42 | CA_ITS ---
FINAL REPORT TECHNIQUE: Spectral and color Doppler exam CLINICAL HISTORY: HTN FINDINGS: DOPPLER RENAL VESSELS HISTORY: Hypertension . FINDINGS: Intrarenal resistive indices on the right are 0.77, borderline elevated. Intrarenal resistive indices on the left are 0.85, borderline elevated. Renal size is normal and symmetric. Right main renal artery systolic velocity: 128 cm/sec. Aortic-right renal artery flow velocity ratio: 1.54 COMMENT: No evidence of hemodynamically significant renal artery stenosis . Left main renal artery systolic velocity: 138 cm/sec. Aortic-left renal artery flow velocity ratio: 1.65 COMMENT: No evidence of hemodynamically significant renal artery stenosis . IMPRESSION: No evidence of hemodynamically significant renal artery stenosis CTA or gadolinium-enhanced MR may be considered as a more sensitive exam. Alternatively noncontrast MRI may be considered for assessing main renal arteries for stenosis as a more sensitive exam if the patient has renal insufficiency. Reviewed, Interpreted and Dictated by Carlos Wayne MD Transcribed by Nora Rossi Authenticated and [facility]
== END 2024-02-10 23:59 | disposition home or self-care (01) ==
LOC: RT 08:41
PROVIDERS: PCP Family Medicine; Visit Provider Nurse Practitioner
DX: I10 Essential (primary) hypertension (principal); E78.2 Mixed hyperlipidemia; R07.9 Chest pain, unspecified; I35.1 Nonrheumatic aortic (valve) insufficiency; N28.9 Disorder of kidney and ureter, unspecified
CPT/HCPCS: 93976

== ENCOUNTER 2024-02-28 13:41 | Outpatient (CLI) | payer MEDICARE, SELFPAY ==
--- NOTE | 2024-02-28 13:42 | CA_ITS ---
FINAL REPORT TECHNIQUE: Compression estevez scale and Doppler evaluation CLINICAL HISTORY: edema LLE, HTN, HLD. Patient states she has had edema in LLE for quite awhile but seems worse lately. Denies recent trauma. FINDINGS: Femoral and popliteal veins show normal compressibility and flow. Visualized portion of the calf veins are patent by Doppler exam. IMPRESSION: No evidence of left lower extremity deep venous thrombosis Reviewed, Interpreted and Dictated by Carlos Wayne MD Transcribed by Ashleigh Murphy Authenticated and [facility]
== END 2024-02-28 23:59 | disposition home or self-care (01) ==
LOC: RT 13:42
PROVIDERS: PCP Family Medicine; Visit Provider Internal Medicine
DX: R60.0 Localized edema (principal)
CPT/HCPCS: 93971

== ENCOUNTER 2024-06-05 11:53 | Outpatient (CLI) | payer MEDICARE, SELFPAY ==
--- NOTE | 2024-06-05 12:01 | XR_ITS ---
FINAL REPORT CLINICAL HISTORY: Left-sided rib/chest pain COMPARISON: 01/16/2024 FINDINGS: A PA view of the chest and oblique views of the left ribs were obtained. There is no prior exam for comparison. The cardiac and mediastinal silhouettes are within normal limits. The lungs are clear. There is no pneumothorax. Oblique views of the left ribs reveal no displaced rib fracture. IMPRESSION: No acute left rib fracture and no pneumothorax. Reviewed, Interpreted and Dictated by Carlos Wayne MD Transcribed by Yas Perez Authenticated and [facility]
--- NOTE | 2024-06-05 12:01 | XR_ITS ---
FINAL REPORT CLINICAL HISTORY: Mid back pain COMPARISON: None FINDINGS: Three views of the thoracic spine were obtained. There is no fracture present. There is no malalignment. There are no significant degenerative changes. IMPRESSION: No acute process. Reviewed, Interpreted and Dictated by Carlos Wayne MD Transcribed by Yas Perez Authenticated and [facility]
== END 2024-06-05 23:59 | disposition home or self-care (01) ==
LOC: RAD 11:55
PROVIDERS: PCP Family Medicine; Visit Provider Family Medicine
DX: M54.6 Pain in thoracic spine (principal); R07.89 Other chest pain
CPT/HCPCS: 71101; 72072

== ENCOUNTER 2024-07-20 11:00 | Outpatient (RCR) | payer MEDICARE, SELFPAY ==
--- NOTE | 2024-07-02 12:08 | HMH.PTOPEV ---
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 Pt reports dealing with pain 'for some time', and reports pain level stays fairly constant in intensity and location. Pt reports no radicular s/s, and recent imaging studies of thoracic spine and ribs were grossly unremarkable. New diagnosis of cancer in past 12 No months? Chief Complaint Pain,Stiff Symptom Type Ache,Sharp,Dull Symptoms Relieved By Nothing Symptoms Aggravated By Sitting,Standing,Bending/ Stooping,Physical Activity, Walking,Lifting Prior Functional Limitations Housework,Standing,Sitting, Walking Current Functional Limitations Housework,Standing,Sitting, Walking Symptom Description Constant but Variable Level of pain today (0-10) 5 Pain scale - at its best (0-10) 5 Pain scale - at its worst (0-10) 8 Lumbopelvic Eval Posture Thoracic Spine Posture Standing Position Increased Kyphosis Lumbar Spine Posture Standing Position Flattened Assistive device Assistive Devices None / NA Gait Observation General Gait Pattern Observation Antalgic Gait,Shuffling Step Palapation tenderness right lumbar spinal tenderness Yes: 3/4 paraspinal tenderness Yes: 3/4 buttock tenderness Yes: 1-2/4 Lumbar/Sacral Palpation Findings Tenderness,Trigger Point, Muscle Guarding Accessory Movement L-spine Vertebrae Accessory Movements Central P/A [place] that Elicit Symptoms L3 right L4 right L5 right Range of Motion Lumbar Spine Active Flexion Range of 0-15 Motion (degrees) Lumbar Spine Active Extension Range of 0-10 Motion (degrees) Left Lumbar Spine Lateral Flexion Active 0-15 Range of Motion (degrees) Right Lumbar Spine Lateral Flexion 0-10 Active Range of Motion (degrees) Lumbar Spine ROM Limitations Pain Manual Muscle Test Right Knee Extension Strength Grade 5 Normal Knee Flexion Strength Grade 5 Normal Hip Flexion Strength Grade 4- Good- Extensor Hallucis Longus Strength Grade 5 Normal Ankle Dorsiflexion Strength Grade 5 Normal Gastronemius/Soleus Strength Grade 4 Good Special Tests Hip Piriformis Test Negative Right Sciatic Nerve Tension Test Negative Right Oswestry Index Section 1 Pain Intensity The pain comes and goes and is severe Section 2 Personal Care (Washing,Dresing) change my way of washing or dressing in order to avoid pain Section 3 Lifting I can only lift very light weights at most Section 4 Walking I have some pain when walking but it does not increase with distance Section 5 Sitting I can sit in any chair for as long as I like Section 6 Standing I can stand as long as I want without pain Section 7 Sleeping I get pain in bed, but it does not prevent me from sleeping well Section 8 Social Life My social life is normal and gives me no extra pain Section 9 Traveling I get no pain when traveling Section 10 Changing Degreee of Pain My pain is gradually getting worse Score and Risk Level Oswestry Sc 15 Oswestry Risk Level Moderate Disability Outpatient Therapy Assessment Impairments Problems/Impairmments Palpation Tenderness,Impaired Range of Motion,Impaired Strength,Impaired Gait Pattern ,Impaired Walking,Impaired Standing,Impaired Sitting, Impaired Household Care, Subjective C/O Pain,Impaired Self Care/Self Management Prognosis Rehab Potential Good Clinical Impression Consistent with Diagnosis Yes Short Term Goals Number of Weeks 4 Decreased Palpation Tenderness Yes: 1-2/4 lumbar mm Increase Range of Motion Yes: 50% of WFL LUMBAR AROM Increase Strength Yes: 4/5 RIGHT HIP MM Increase Ability to Walk Yes: 10MIN Increase Ability to Stand Yes: 10MIN Increase Ability to Sit Yes: 10MIN Decrease Subjective C/O Pain Yes: 3-4/10 W/ABOVE ACTIVITIES Patient to be Ind w/ HEP Yes Alf Goals Number of Weeks 8-10 Decreased Palpation Tenderness Yes: 0-1/4 LUMBAR MM Increase Range of Motion Yes: 75% OF WFL LUMBAR AROM Increase Strength Yes: 4+-5/5 RIGHT HIP MM Improve Gait Pattern without Assistive Yes: WFL ON LEVEL TERRAIN Device Increase Ability to Walk Yes: 20MIN Increase Ability to Stand Yes: 20MIN Increase Ability to Sit Yes: 20MIN Improve Ability For Household Care Yes: 20MIN Decrease Subjective C/O Pain Yes: 0-2/10 W/ABOVE ACTIVITIES Patient to be Ind w/ Advanced HEP Yes Outpatient Therapy Plan of Care Treatment Plan May Include Therapeutic Exercise Including Home Yes Exercise Program Manual Therapy Techniques Yes Neuromuscular Re-education Yes Therapeutic Activities to Return to Yes Previous Functional/Work Level Gait Training Yes ADL/Self Care Education Yes Mechanical Traction Yes Dry Needling Yes Thermal Modalities Yes Electrical Stimulation Yes Ultrasound/Phonophoresis Yes Eval/Re-Eval Yes Frequency Times per week 2-3 Duration Number of Weeks 8-10 Addendums This patient is a candidate for social No or vocational rehab? Patient/Guardian verbally acknowledges Yes understanding of treatment program and consents to further treatment? Patient/Guardian verbally acknowledges Yes understanding of diagnosis, prognosis and goals for treatment? Eval Complexity PT Charges 15457 - Moderate Complexity Shoulder/Elbow Eval Shoulder Objective Measurements Elbow Objective Measurements PHYSICIAN CERTIFICATION: I certify the specified therapy services for Alejandrina Bang are required, authorized, and reviewed every 30 days.
== END 2024-07-20 23:59 | disposition home or self-care (01) ==
LOC: PT 11:00
PROVIDERS: PCP Family Medicine; Visit Provider Family Medicine
DX: M54.6 Pain in thoracic spine (principal)
CPT/HCPCS: 97014; 97035; 97110; 97140; 97163; G0283

== ENCOUNTER 2024-07-26 09:34 | Outpatient (CLI) | payer MEDICARE, SELFPAY | END 2024-07-26 23:59 | disposition home or self-care (01) | LOC: RAD 09:34 | PROVIDERS: PCP Family Medicine; Visit Provider Family Medicine | DX: M54.50 Low back pain, unspecified (principal) ==

== ENCOUNTER 2024-08-31 11:47 | Emergency (ER) | payer MEDICARE, SELFPAY ==
[2024-08-31] VITALS (18 sets, daily range): BP systolic 111–209; BP diastolic 48–90; PULSE 52–73; RESP 12–18; TEMP 36.7–36.8; O2SAT 90–100; BMI 20.9
--- NOTE | 2024-08-31 12:01 | ECG_ITS ---
APPROVED REPORT Exam: Resting ECG HR:62 bpm ECG Measurements Heart Rate 62 AXES HI 196 P 77 QRSd 96 QRS 85 QT 497 T 132 QTc 502 Conclusion SINUS RHYTHM MODERATE T-WAVE ABNORMALITY Electronically signed by : AMARILIS LUKE, 08/31/2024 15:27:46
--- NOTE | 2024-08-31 12:10 | INFXCTL.NOTE ---
DR LUKE AT BEDSIDE
--- NOTE | 2024-08-31 12:29 | PC.NURSE ---
Pt ambulatory back from restroom with assistance from family; urine sent to lab
--- NOTE | 2024-08-31 12:30 | PC.NURSE ---
DR LUKE AT BEDSIDE, PT JERKING
--- NOTE | 2024-08-31 12:39 | CT_ITS ---
FINAL REPORT CLINICAL HISTORY: ams, jerking bilaterally FINDINGS: CT NECK ANGIO, WITHOUT AND WITH CONTRAST TECHNIQUE: Thin section axial CT with contrast with multiplanar 3D MIP reconstruction. NASCET criteria and technique was utilized during interpretation. Aortic arch: Arch shows no significant narrowing. Great vessel origins are widely patent. Right carotid: There is mild calcified plaque at the carotid bifurcation. Left carotid: There is mild calcified plaque at the carotid bifurcation. Vertebrals: The vertebral arteries are codominant. No significant stenosis is present. IMPRESSION: No significant stenosis of the cervical carotid arteries This study was performed using automated techniques to achieve radiation exposure as low as reasonably Reviewed, Interpreted and Dictated by Carlos Wayne MD Transcribed by Ashleigh Murphy Authenticated and . [facility]
--- NOTE | 2024-08-31 12:39 | CT_ITS ---
FINAL REPORT TECHNIQUE: Noncontrast exam. Coronal and sagittal reconstructions were obtained and reviewed. This study was performed with techniques to keep radiation doses as low as reasonably achievable, (ALARA). Individualized dose reduction techniques using automated exposure control or adjustment of mA and/or kV according to the patient''s size were employed. CLINICAL HISTORY: ams COMPARISON: None FINDINGS: Mild generalized atrophy and mild chronic ischemic white matter changes are noted. No cortical edema is present. There is no mass or hemorrhage. Ventricles are normal. Bone windows show no skull fracture or obvious obstructive lesion. There is a polyp or mucous retention cyst in the inferior right maxillary sinus. IMPRESSION: 1. No acute intracranial abnormality or obvious mass. 2. Atrophy and chronic ischemic white matter changes as above. Reviewed, Interpreted and Dictated by Carlos Wayne MD Transcribed by Yas Perez Authenticated and [facility] [place]
--- NOTE | 2024-08-31 12:39 | CT_ITS ---
FINAL REPORT CLINICAL HISTORY: ams, jerking bilaterally FINDINGS: CTA HEAD TECHNIQUE: Thin section axial CT with contrast with 3D MIP reconstruction No aneurysm is seen. There is mild stenosis of the mid basilar artery measuring 30%. The remaining vessels are patent without significant stenosis. . IMPRESSION: No evidence of acute large vessel occlusive disease. This study was performed using automated techniques to achieve radiation exposure as low as reasonably achievable Reviewed, Interpreted and Dictated by Carlos Wayne MD Transcribed by Ashleigh Murphy Authenticated and . [facility]
--- NOTE | 2024-08-31 12:41 | XR_ITS ---
FINAL REPORT CLINICAL HISTORY: ams, cough FINDINGS: There is minimal atelectasis in the left lung base. The lungs are otherwise clear. There is no evidence of effusion or pneumothorax. Mediastinum is unremarkable. Heart size is normal. IMPRESSION: Mild left basilar atelectasis. Reviewed, Interpreted and Dictated by Carlos Wayne MD Transcribed by Yas Perez Authenticated and [facility]
[2024-08-31 12:48] LABS: Microscopic, Urine URINE MICROSCOPIC (MICROSCOPIC)
[2024-08-31 12:56] LABS: Appearance,Urine CLEAR (Clear); Bilirubin,Urine Negative (Negative); Blood, Urine Negative (Negative); Color,Urine YELLOW (Yellow); Glucose,Urine (UA) Negative (Negative); Ketones,Urine Negative (Negative); Leukocyte Esterase,Urine Negative (Negative); Nitrate,Urine Negative (Negative); PH,Urine 6.5 (5.0-8.5); Protein,Urine Negative (Negative); Specific Gravity, Urine 1.025 (1.005-1.030); Urobilinogen,Urine 0.2 EU/dl (0.2)
[2024-08-31 12:59] LABS: Albumin Level 4.2 g/dl (3.5-5.0); Chloride 105 mmol/L (98-107); Potassium 4.3 mmoL/L (3.5-5.1); Sodium 133 mmol/L (136-145)
--- NOTE | 2024-08-31 13:00 | [facility].EDGENADL ---
Discharge Plan Disposition Patient Disposition: Xfer Short-Term Hosp Chief Complaint: Neuro Symptoms/Deficit Prescriptions Prescriptions: No Action donepezil 5 mg tablet 5 mg PO DAILY metoclopramide HCl 5 mg tablet 5 mg PO QID Patient Comments: TAKE 1 TABLET BY MOUTH 4 TIMES A DAY BEFORE MEALS AND AT BEDTIME fluticasone propionate 50 mcg/actuation spray,suspension 2 spray intranasal DAILY PRN Patient Comments: ADMINISTER 2 SPRAYS DIRECTED ONCE DAILY diltiazem HCl 240 mg capsule,extended release 24hr PO Patient Comments: TAKE 1 CAPSULE BY MOUTH ONCE DAILY diphenhydramine-acetaminophen 25-500 mg-mg/mL solution PO ONCE levothyroxine 25 mcg tablet 25 mcg PO DAILY valsartan 320 mg tablet See Rx Instructions .ROUTE .COMPLEX Qty: 90 3RF Dose Instruction: TAKE 1 TABLET BY MOUTH DAILY Rx Instructions: TAKE 1 TABLET BY MOUTH DAILY hydrochlorothiazide 25 mg tablet 37.5 mg PO DAILY Qty: 90 3RF spironolactone 25 mg tablet 12.5 mg PO DAILY 90 Days Qty: 45 2RF polyethylene glycol 3350 119 GM powder 17 gm PO DAILY etgrfkjb-[id number]-[id number]-lycopen-lutein 1 EACH tablet 1 each PO DAILY Referrals Follow up/Referrals: Jack Morelos MD [Primary Care Provider] - See instructions Clinical Impressions Clinical Impression: Seizure-like activity Stand Alone Forms Stand Alone Forms: Transfer Record - ED Print Language Print Language: Turkish Discharge ED Provider: Rakesh Tafoya General Adult HPI <Vini Bundy MD - Last Filed: 08/31/24 15:16> General Chief complaint: Neuro Symptoms/Deficit Stated complaint: jerky shakes, was catatonic, Time Seen by Provider: 08/31/24 11:57 Mode of Arrival: Ambulatory Source of Information: Relative Limitations: No Limitations Description of Symptoms (Recalled from ER Triage Doc. by RN): FAMILY REPORTS PT WAS CATATONIC WHEN DAUGHTER ARRIVED THIS AM TO CHECK ON PT. DAUGHTER REPORTS PT WAS STARRING OFF PT ASSISTED IN TO LIVING ROOM, DAUGHTERS REPORT JERKING EPISODES LASTING ABOUT 2 MINUTES. DAUGHTERS REPORT PT NEARLY BACK TO BASELINE OF THIS TIME. History of Present Illness HPI narrative: Please note that above description of symptoms, in this electronic medical record under categorization of recalled from ER triage doctor by RN are reflective of an initial nursing assessment, however, is not reflective of my full history and physical exam that was personally taken and clarified. Consequentially, this preceding description of symptoms, which may include the patient's categorized chief complaint in the EMR, do not reflect my personal clinical impression, and the ultimate description of history of present illness and patient stated complaints should be deferred to this section of the note. Unless stated otherwise or congruent with this section of the note, additional signs, symptoms, or incongruence should be interpreted as inaccurate with my clinical impression. Related Data Home Medications ?Medication ?Instructions ?Recorded ?Confirmed levothyroxine 25 mcg tablet 25 mcg PO DAILY Thyroid 09/17/19 03/19/24 kacwmwlu-psb-dytfd acid 0.4 1 each PO DAILY Supplement 05/30/20 03/19/24 mg-lycopene 300 mcg-lutein 250 mcg tablet polyethylene glycol 3350 17 17 gm PO DAILY bowels 10/21/20 03/19/24 gram/dose oral powder donepezil 5 mg tablet 5 mg PO DAILY 04/11/23 03/19/24 fluticasone propionate 50 2 spray intranasal DAILY PRN 02/07/24 03/19/24 mcg/actuation nasal spray,suspension metoclopramide HCl 5 mg tablet 5 mg PO QID 02/07/24 03/19/24 diltiazem HCl 240 mg mg PO 02/14/24 03/19/24 capsule,extended release 24 hr diphenhydramine 25 ml PO ONCE 02/14/24 03/19/24 mg-acetaminophen 500 mg/15 mL oral solution Previous Rx's ?Medication ?Instructions ?Recorded valsartan 320 mg tablet See Rx Instructions .Route 04/23/24 .COMPLEX #90 tabs hydrochlorothiazide 25 mg tablet 37.5 mg (1.5 x 25 mg) PO DAILY 05/09/24 diuretic #90 tabs spironolactone 25 mg tablet 12.5 mg (1/2 x 25 mg) PO DAILY 90 05/21/24 days #45 tabs Allergies Allergy/AdvReac Type Severity Reaction Status Date / Time morphine Allergy Mild ITCHING Verified 03/19/24 13:52 NSAIDS (Non-Steroidal AdvReac Severe Verified 03/19/24 13:52 Anti-Inflamma [facility] <Vini Bundy MD - Last Filed: 08/31/24 15:16> [facility] Disclaimer: The information contained in this section may have been updated after the patient was seen, as this information can be updated by other users. Medical History Edema of left lower extremity Moderate aortic regurgitation Social History Smoking Status: Never smoker second hand exposure: No alcohol intake: never substance use type: denies use current occupational status: retired Travel in the last 8 weeks: Inside the [place] housing[place] house current occupational exposures/hazards: No caffeine: No Have you lived/traveled outside [place] in past 30 days?: No Contact w/someone who lives/traveled outside US past 30 days?: No Exposure to someone with infectious disease in past 14 days?: No Do you have a fever (greater than 100.4 F or 38 C)?: No Have you tested positive for COVID-19: No Exposed to someone with COVID-19 in past 14 days?: No Do you have a sore throat?: No Do you have a cough?: No Do you have any weakness?: No Do you have any diarrhea?: No Are you experiencing any unusual bleeding?: No Do you have any muscle aches/pain?: No Do you have any abdominal pain?: No Are you experiencing loss of taste or smell?: No Other Medical History Have you received the Flu Vaccine for this season: Yes Have you received the Pneumonia Vaccine: Yes <Vini Bundy MD - Last Filed: 08/31/24 15:16> ROS Obtained: Yes All systems reviewed & no additional complaints except as documented Physical Exam <Vini Bundy MD - Last Filed: 08/31/24 15:16> General General appearance: alert Head Head exam: atraumatic and normocephalic Eye Eye exam: Present normal appearance, PERRL and EOMI Neck Neck exam: Present normal inspection, full ROM and trachea midline Respiratory Respiratory exam: Absent respiratory distress, wheezes, stridor, accessory muscle use or prolonged expiratory phase Cardiovascular Cardiovascular exam: Present other (Pulses equal symmetric in upper and lower extremities) Abdominal Exam Abdominal exam: Present soft; Absent distention, tenderness or pulsatile mass Extremities Exam Extremities exam: Absent edema Neurological Exam Neurological exam: Present alert, oriented X3 and CN II-XII intact; Absent motor sensory deficit Skin Skin exam: Present warm and dry; Absent diaphoresis or erythema Medical Decision Making <Vini Bundy MD - Last Filed: 08/31/24 15:16> Medical Records Medical records reviewed: Yes I reviewed the patient's medical records. Screening: Per USPSTF and CDC recommendations, given the prevalence of disease in our region, it is our hospital?s policy to screen for HIV and viral Hepatitis for all patients aged 18 and over and those with ongoing risk factors. Duy Inquiry Pt receiving controlled substance: No Duy was queried for this patient: No Vital Signs: 08/31/24 11:50 08/31/24 11:58 08/31/24 12:00 Temperature 98.3 F Temperature Source Oral Pulse Rate 62 64 Pulse Rate [Radial] 64 Respiratory Rate 18 Blood Pressure 159/64 H 164/64 H Blood Pressure [Right Arm] 159/64 H Blood Pressure Mean [Right Arm] 95 Blood Pressure Source [Right Arm] Automatic Cuff Blood Pressure Position [Right Arm] Sitting 02 Sat by Pulse Oximetry 96 96 96 Oxygen Delivery Method Room Air Room Air Room Air 08/31/24 12:32 08/31/24 14:00 08/31/24 14:30 Temperature Temperature Source Pulse Rate 73 72 61 Pulse Rate [Radial] Respiratory Rate Blood Pressure 209/90 H 146/64 H 140/62 Blood Pressure [Right Arm] Blood Pressure Mean [Right Arm] Blood Pressure Source [Right Arm] Blood Pressure Position [Right Arm] 02 Sat by Pulse Oximetry 96 96 96 Oxygen Delivery Method Room Air Room Air Room Air 08/31/24 17:51 08/31/24 18:00 08/31/24 18:30 Temperature Temperature Source Pulse Rate 57 L 55 L 57 L Pulse Rate [Radial] Respiratory Rate 12 14 17 Blood Pressure 152/64 H 137/58 L 133/62 Blood Pressure [Right Arm] Blood Pressure Mean [Right Arm] Blood Pressure Source [Right Arm] Blood Pressure Position [Right Arm] 02 Sat by Pulse Oximetry 97 92 L 92 L Oxygen Delivery Method Room Air Room Air Room Air Lab Data Lab Results 08/31/24 12:05: WBC 8.9, RBC 3.80 L, Hgb 11.7 L, Hct 35.0 L, MCV 92.1, MCH 30.8, MCHC 33.4, RDW 13.4, Plt Count 525 H, MPV 8.5, Neut % (Auto) 66.2, Lymph % (Auto) 21.3, [place] % (Auto) 10.7 H, Eos % (Auto) 0.7, Baso % (Auto) 0.9, Neut # (Auto) 5.9, Lymph # (Auto) 1.9, [place] # (Auto) 1.0, Eos # (Auto) 0.1, Baso # (Auto) 0.1, PT 10.7, INR 0.95, APTT 29.5, Sodium 133 L, Potassium 4.3, Chloride 105, Carbon Dioxide 27, Anion Gap 5.3, BUN 33 H, Creatinine 1.00, Estimated Creat Clear 39, Estimated GFR 53 L, Est GFR ( Amer) 64, Glucose 104 H, Hemoglobin A1c 5.7, Calcium 10.3 H, Magnesium 2.0, Total Bilirubin 0.5, AST 44 H, ALT 26, Alkaline Phosphatase 90, Troponin I 0.02, NT-Pro-B Natriuret Pep 1120 H, Total Protein 7.1, Albumin 4.2, Globulin 2.9, Albumin/Globulin Ratio 1.4, Triglycerides 72, Cholesterol 188, LDL Cholesterol Direct 113.15, VLDL Cholesterol 14, HDL Cholesterol 45, Cholesterol/HDL Ratio 4.2 H, Lipase 167, TSH 1.84, Thyroxine (T4) 8.9 08/31/24 12:40: Urine Color Yellow, Urine Appearance Clear, Urine pH 6.5, Ur Specific [place] 1.025, Urine Protein Negative, Urine Glucose (UA) Negative, Urine Ketones Negative, Urine Blood Negative, Urine Nitrate Negative, Urine Bilirubin Negative, Urine Urobilinogen 0.2, Ur Leukocyte Esterase Negative, Urine RBC None, Urine WBC Occasional, Ur Squamous Epith Cells Occasional, Urine Bacteria Trace 08/31/24 13:00: Lactate 1.0 08/31/24 13:08: VBG pH 7.42 H, VBG pCO2 36.2, VBG pO2 75.3 H, VBG HCO3 22.7 L, VBG Total CO2 23.9, VBG O2 Saturation 95.3 H, VBG Base Excess -1.8, VBG Lactic Acid 1.4, HIV Ag/Ab Combo Qual Negative 08/31/24 15:40: Troponin I 0.02 08/31/24 12:05 08/31/24 12:05 Orders (Tests/Meds): ED MEDICATIONS Discontinued Medications Generic Name Dose Route Start Last Admin Trade Name Adrien PRN Reason Stop Dose Admin Gadoteridol 17 ml 08/31/24 17:15 08/31/24 17:17 Gadoteridol Inj 20ml Syringe IV 08/31/24 17:16 17 ml ONCE ONE Administration Levetiracetam 2,000 mg/ Sodium 120 mls @ 240 mls/hr 08/31/24 12:38 08/31/24 13:14 Chloride IV 08/31/24 12:39 240 mls/hr ONCE ONE Administration Magnesium Sulfate 2 gm in 50 mls @ 50 mls/hr 08/31/24 13:06 08/31/24 13:13 Magnesium Sulfate 2gm/50ml Premix IV 08/31/24 14:05 50 mls/hr ONCE ONE Administration Iopamidol 80 ml 08/31/24 13:36 08/31/24 13:37 Iopamidol-370 (76%);100ml Bottle IV 08/31/24 13:37 80 ml ONCE ONE Administration Magnesium Oxide 800 mg 08/31/24 13:07 08/31/24 13:13 Magnesium Oxide 400mg Tablet PO 08/31/24 13:08 800 mg ONCE ONE Administration Sodium Chloride 50 ml 08/31/24 13:36 08/31/24 13:37 0.9 % Sodium Chloride 50 Ml Vial IV 08/31/24 13:37 50 ml ONCE ONE Administration Sodium Chloride 10 ml 08/31/24 13:36 08/31/24 13:37 Sodium Chloride 0.9% 10ml Syr (Rad Only) IV 08/31/24 13:37 10 ml ONCE ONE Administration Sodium Chloride 10 ml 08/31/24 17:15 08/31/24 17:17 Sodium Chloride 0.9% 10ml Syr (Rad Only) IV 08/31/24 17:16 10 ml ONCE ONE Administration ORDERS Category Date Time Status CT angio head Stat Cat Scan 08/31/24 12:[address] angio neck Stat Cat Scan 08/31/24 12:[address] head/brain wo con Stat Cat Scan 08/31/24 12:39 Completed XR chest portable Stat Exams 08/31/24 12:41 Completed Complete Blood Count Auto Diff Stat Lab 08/31/24 12:05 Completed Comprehensive Metabolic Panel Stat Lab 08/31/24 12:05 Completed HIV Combo Stat Lab 08/31/24 13:08 Completed Hemoglobin A1C Stat Lab 08/31/24 12:05 Completed Hep C Ab with Reflex to RNA Stat Lab 08/31/24 13:08 Received Lactic Acid Stat Lab 08/31/24 13:00 Completed Lipase Stat Lab 08/31/24 12:05 Completed Lipid Panel Stat Lab 08/31/24 12:05 Completed Magnesium Stat Lab 08/31/24 12:05 Completed NT Pro Brain Natriuretic Pep. Stat Lab 08/31/24 12:05 Completed PT INR [Prothrombin Time INR] Stat Lab 08/31/24 12:05 Completed PTT [Activated Partial Thrombo Time] Stat Lab 08/31/24 12:05 Completed T4 (Thyroxine) Stat Lab 08/31/24 12:05 Completed TSH [Thyroid Stimulating Hormone] Stat Lab 08/31/24 12:05 Completed Troponin I Q3H Lab 08/31/24 15:40 Completed Troponin I Stat Lab 08/31/24 12:05 Completed Urinalysis and Microscopic Stat Lab 08/31/24 12:40 Completed Blood Culture Stat Micro 08/31/24 13:08 Received Venous Blood Gas Stat RT 08/31/24 13:08 Completed Medical Decision Narrative: 88-year-old female history of mild cognitive permit, CAD, aortic valve regurgitation presenting with altered mental status. Family providing most of history. 3 days prior to this, patient had first episode of altered mental status. She was standing and did not lose tone, but she had an episode where she was cognitively unresponsive and appeared to be shaking and her bilateral upper extremities holding her hands clasped in front of her. This lasted for a few seconds until she snapped out of it, and she was able to answer. Patient was taken to PCP yesterday, 08/30 and at that time, was placed on Levaquin for diarrhea and drippy nose. Has taken 2 doses of Levaquin, yesterday and today. States that today, patient had 2 more episodes of this unresponsive periodic nature. She was standing in the hallway for the first 1, eyes were open. Patient was flailing both of her arms around, but remained standing. Was not responding to her daughter who was there in the room trying to get her attention. Daughter who is a nurse came over to evaluate patient and said that patient's blood pressure was normal, sugar was normal, have EKG fingertip reader at home, this was normal sinus rhythm and patient snapped out of it, so not worried about it and were going to manage conservatively. Patient had another episode of this shortly thereafter, so patient put in vehicle and family brought her here for further evaluation. On arrival, patient states that she does not remember these episodes. She also denies shortness of breath, chest pain, vision changes, numbness, tingling, weakness, difficulty speaking, and is alert and oriented to person and place here. No acute complaints. History was obtained via conversation with patient's daughters, patient. On arrival, patient hemodynamically stable, alert, oriented to person and place, appropriate, GCS 14, moving all extremities spontaneously, pupils equal and reactive to light. Full physical exam performed and significant for well-appearing female who is fatigued. GCS 14 because sleeping, but opens eyes to voice and answers appropriately. Neurologically intact including cranial nerve, cerebellar, motor and sensory. No evidence of tremor. Cardiac exam with right upper sternal border murmur, but no other murmurs auscultated. Normal S1-S2. No lower extremity edema. Pulses equal and symmetric in upper and lower extremities. Differential includes UTI, pneumonia, ACS, SC, other metabolic abnormality, other endocrinologic abnormality, CVA, seizure, intracranial mass, among others. Patient placed on continuous cardiac monitoring and continuous pulse ox with initial blood pressure 159/64, heart rate 64 bpm, saturation 96% on room air. Independent interpretation of EKG shows sinus rhythm 62 bpm with IN interval 196, QRS 96, QTc 502. No ST changes, patient has T wave inversions in V2 through V4 and 1 and aVL. Given 2 g of mag and 800 mag oxide p.o. for this. Patient was given 2 g Keppra for symptomatic management as a precaution. Workup independently interpreted and significant for nonactionable CBC, chemistry, VBG, lactate, troponin, BNP or any other labs. Negative TSH and T4. Urinalysis nonactionable. Patient's chest x-ray without acute cardiopulmonary airspace disease. On independent interpretation of imaging, no acute intracranial hemorrhage or critical intra or extracranial stenoses. See radiology read for full review of final results. On reevaluation, patient resting in her baseline, has no episodes since receiving Keppra and magnesium. Prolonged conversation had with patient's family, numerous options laid out. Would like to pursue MRI here if able to receive test. MRI able to be performed at 1630 today, 08/31. I feel this is likely cardiac versus neurologic in nature. Potential ventricular dysrhythmia given pretty significantly prolonged QT at 502 ms. Also likely that it is neurologic in nature given unresponsiveness and bilateral upper extremity symptoms, but no loss of tone I feel makes this less likely. Patient also has eye movements able to track during these episodes bilaterally. Given patient presentation, workup, history, this most likely represents seizure disorder versus cardiogenic neurologic phenomena/ventricular dysrhythmia. Prior to MRI, care handed off to oncoming physician. Laser Specialist disclaimer Much of this encounter note is an electronic otr flatbed driver spoken language to printed text. Electronic otr flatbed driver of the spoken language may permit errors. Although I have reviewed the note, some errors may still exist. <Rakesh Tafoya MD - Last Filed: 08/31/24 19:03> Vital Signs: 08/31/24 11:50 08/31/24 11:58 08/31/24 12:00 Temperature 98.3 F Temperature Source Oral Pulse Rate 62 64 Pulse Rate [Radial] 64 Respiratory Rate 18 Blood Pressure 159/64 H 164/64 H Blood Pressure [Right Arm] 159/64 H Blood Pressure Mean [Right Arm] 95 Blood Pressure Source [Right Arm] Automatic Cuff Blood Pressure Position [Right Arm] Sitting 02 Sat by Pulse Oximetry 96 96 96 Oxygen Delivery Method Room Air Room Air Room Air 08/31/24 12:32 08/31/24 14:00 08/31/24 14:30 Temperature Temperature Source Pulse Rate 73 72 61 Pulse Rate [Radial] Respiratory Rate Blood Pressure 209/90 H 146/64 H 140/62 Blood Pressure [Right Arm] Blood Pressure Mean [Right Arm] Blood Pressure Source [Right Arm] Blood Pressure Position [Right Arm] 02 Sat by Pulse Oximetry 96 96 96 Oxygen Delivery Method Room Air Room Air Room Air 08/31/24 17:51 08/31/24 18:00 08/31/24 18:30 Temperature Temperature Source Pulse Rate 57 L 55 L 57 L Pulse Rate [Radial] Respiratory Rate 12 14 17 Blood Pressure 152/64 H 137/58 L 133/62 Blood Pressure [Right Arm] Blood Pressure Mean [Right Arm] Blood Pressure Source [Right Arm] Blood Pressure Position [Right Arm] 02 Sat by Pulse Oximetry 97 92 L 92 L Oxygen Delivery Method Room Air Room Air Room Air Lab Data Lab Results 08/31/24 12:05: WBC 8.9, RBC 3.80 L, Hgb 11.7 L, Hct 35.0 L, MCV 92.1, MCH 30.8, MCHC 33.4, RDW 13.4, Plt Count 525 H, MPV 8.5, Neut % (Auto) 66.2, Lymph % (Auto) 21.3, [place] % (Auto) 10.7 H, Eos % (Auto) 0.7, Baso % (Auto) 0.9, Neut # (Auto) 5.9, Lymph # (Auto) 1.9, [place] # (Auto) 1.0, Eos # (Auto) 0.1, Baso # (Auto) 0.1, PT 10.7, INR 0.95, APTT 29.5, Sodium 133 L, Potassium 4.3, Chloride 105, Carbon Dioxide 27, Anion Gap 5.3, BUN 33 H, Creatinine 1.00, Estimated Creat Clear 39, Estimated GFR 53 L, Est GFR ( Amer) 64, Glucose 104 H, Hemoglobin A1c 5.7, Calcium 10.3 H, Magnesium 2.0, Total Bilirubin 0.5, AST 44 H, ALT 26, Alkaline Phosphatase 90, Troponin I 0.02, NT-Pro-B Natriuret Pep 1120 H, Total Protein 7.1, Albumin 4.2, Globulin 2.9, Albumin/Globulin Ratio 1.4, Triglycerides 72, Cholesterol 188, LDL Cholesterol Direct 113.15, VLDL Cholesterol 14, HDL Cholesterol 45, Cholesterol/HDL Ratio 4.2 H, Lipase 167, TSH 1.84, Thyroxine (T4) 8.9 08/31/24 12:40: Urine Color Yellow, Urine Appearance Clear, Urine pH 6.5, Ur Specific [place] 1.025, Urine Protein Negative, Urine Glucose (UA) Negative, Urine Ketones Negative, Urine Blood Negative, Urine Nitrate Negative, Urine Bilirubin Negative, Urine Urobilinogen 0.2, Ur Leukocyte Esterase Negative, Urine RBC None, Urine WBC Occasional, Ur Squamous Epith Cells Occasional, Urine Bacteria Trace 08/31/24 13:00: Lactate 1.0 08/31/24 13:08: VBG pH 7.42 H, VBG pCO2 36.2, VBG pO2 75.3 H, VBG HCO3 22.7 L, VBG Total CO2 23.9, VBG O2 Saturation 95.3 H, VBG Base Excess -1.8, VBG Lactic Acid 1.4, HIV Ag/Ab Combo Qual Negative 08/31/24 15:40: Troponin I 0.02 Orders (Tests/Meds): ED MEDICATIONS Discontinued Medications Generic Name Dose Route Start Last Admin Trade Name Alonq PRN Reason Stop Dose Admin Gadoteridol 17 ml 08/31/24 17:15 08/31/24 17:17 Gadoteridol Inj 20ml Syringe IV 08/31/24 17:16 17 ml ONCE ONE Administration Levetiracetam 2,000 mg/ Sodium 120 mls @ 240 mls/hr 08/31/24 12:38 08/31/24 13:14 Chloride IV 08/31/24 12:39 240 mls/hr ONCE ONE Administration Magnesium Sulfate 2 gm in 50 mls @ 50 mls/hr 08/31/24 13:06 08/31/24 13:13 Magnesium Sulfate 2gm/50ml Premix IV 08/31/24 14:05 50 mls/hr ONCE ONE Administration Iopamidol 80 ml 08/31/24 13:36 08/31/24 13:37 Iopamidol-370 (76%);100ml Bottle IV 08/31/24 13:37 80 ml ONCE ONE Administration Magnesium Oxide 800 mg 08/31/24 13:07 08/31/24 13:13 Magnesium Oxide 400mg Tablet PO 08/31/24 13:08 800 mg ONCE ONE Administration Sodium Chloride 50 ml 08/31/24 13:36 08/31/24 13:37 0.9 % Sodium Chloride 50 Ml Vial IV 08/31/24 13:37 50 ml ONCE ONE Administration Sodium Chloride 10 ml 08/31/24 13:36 08/31/24 13:37 Sodium Chloride 0.9% 10ml Syr (Rad Only) IV 08/31/24 13:37 10 ml ONCE ONE Administration Sodium Chloride 10 ml 08/31/24 17:15 08/31/24 17:17 Sodium Chloride 0.9% 10ml Syr (Rad Only) IV 08/31/24 17:16 10 ml ONCE ONE Administration ORDERS Category Date Time Status CT angio head Stat Cat Scan 08/31/24 12:[address] angio neck Stat Cat Scan 08/31/24 12:[address] head/brain wo con Stat Cat Scan 08/31/24 12:39 Completed XR chest portable Stat Exams 08/31/24 12:41 Completed Complete Blood Count Auto Diff Stat Lab 08/31/24 12:05 Completed Comprehensive Metabolic Panel Stat Lab 08/31/24 12:05 Completed HIV Combo Stat Lab 08/31/24 13:08 Completed Hemoglobin A1C Stat Lab 08/31/24 12:05 Completed Hep C Ab with Reflex to RNA Stat Lab 08/31/24 13:08 Received Lactic Acid Stat Lab 08/31/24 13:00 Completed Lipase Stat Lab 08/31/24 12:05 Completed Lipid Panel Stat Lab 08/31/24 12:05 Completed Magnesium Stat Lab 08/31/24 12:05 Completed NT Pro Brain Natriuretic Pep. Stat Lab 08/31/24 12:05 Completed PT INR [Prothrombin Time INR] Stat Lab 08/31/24 12:05 Completed PTT [Activated Partial Thrombo Time] Stat Lab 08/31/24 12:05 Completed T4 (Thyroxine) Stat Lab 08/31/24 12:05 Completed TSH [Thyroid Stimulating Hormone] Stat Lab 08/31/24 12:05 Completed Troponin I Q3H Lab 08/31/24 15:40 Completed Troponin I Stat Lab 08/31/24 12:05 Completed Urinalysis and Microscopic Stat Lab 08/31/24 12:40 Completed Blood Culture Stat Micro 08/31/24 13:08 Received Venous Blood Gas Stat RT 08/31/24 13:08 Completed Medical Decision Narrative: 88-year-old female history of mild cognitive permit, CAD, aortic valve regurgitation presenting with altered mental status. Family providing most of history. 3 days prior to this, patient had first episode of altered mental status. She was standing and did not lose tone, but she had an episode where she was cognitively unresponsive and appeared to be shaking and her bilateral upper extremities holding her hands clasped in front of her. This lasted for a few seconds until she snapped out of it, and she was able to answer. Patient was taken to PCP yesterday, 08/30 and at that time, was placed on Levaquin for diarrhea and drippy nose. Has taken 2 doses of Levaquin, yesterday and today. States that today, patient had 2 more episodes of this unresponsive periodic nature. She was standing in the hallway for the first 1, eyes were open. Patient was flailing both of her arms around, but remained standing. Was not responding to her daughter who was there in the room trying to get her attention. Daughter who is a nurse came over to evaluate patient and said that patient's blood pressure was normal, sugar was normal, have EKG fingertip reader at home, this was normal sinus rhythm and patient snapped out of it, so not worried about it and were going to manage conservatively. Patient had another episode of this shortly thereafter, so patient put in vehicle and family brought her here for further evaluation. On arrival, patient states that she does not remember these episodes. She also denies shortness of breath, chest pain, vision changes, numbness, tingling, weakness, difficulty speaking, and is alert and oriented to person and place here. No acute complaints. History was obtained via conversation with patient's daughters, patient. On arrival, patient hemodynamically stable, alert, oriented to person and place, appropriate, GCS 14, moving all extremities spontaneously, pupils equal and reactive to light. Full physical exam performed and significant for well-appearing female who is fatigued. GCS 14 because sleeping, but opens eyes to voice and answers appropriately. Neurologically intact including cranial nerve, cerebellar, motor and sensory. No evidence of tremor. Cardiac exam with right upper sternal border murmur, but no other murmurs auscultated. Normal S1-S2. No lower extremity edema. Pulses equal and symmetric in upper and lower extremities. Differential includes UTI, pneumonia, ACS, SC, other metabolic abnormality, other endocrinologic abnormality, CVA, seizure, intracranial mass, among others. Patient placed on continuous cardiac monitoring and continuous pulse ox with initial blood pressure 159/64, heart rate 64 bpm, saturation 96% on room air. Independent interpretation of EKG shows sinus rhythm 62 bpm with IN interval 196, QRS 96, QTc 502. No ST changes, patient has T wave inversions in V2 through V4 and 1 and aVL. Given 2 g of mag and 800 mag oxide p.o. for this. Patient was given 2 g Keppra for symptomatic management as a precaution. Workup independently interpreted and significant for nonactionable CBC, chemistry, VBG, lactate, troponin, BNP or any other labs. Negative TSH and T4. Urinalysis nonactionable. Patient's chest x-ray without acute cardiopulmonary airspace disease. On independent interpretation of imaging, no acute intracranial hemorrhage or critical intra or extracranial stenoses. See radiology read for full review of final results. On reevaluation, patient resting in her baseline, has no episodes since receiving Keppra and magnesium. Prolonged conversation had with patient's family, numerous options laid out. Would like to pursue MRI here if able to receive test. MRI able to be performed at 1630 today, 08/31. I feel this is likely cardiac versus neurologic in nature. Potential ventricular dysrhythmia given pretty significantly prolonged QT at 502 ms. Also likely that it is neurologic in nature given unresponsiveness and bilateral upper extremity symptoms, but no loss of tone I feel makes this less likely. Patient also has eye movements able to track during these episodes bilaterally. Given patient presentation, workup, history, this most likely represents seizure disorder versus cardiogenic neurologic phenomena/ventricular dysrhythmia. Prior to MRI, care handed off to oncoming physician. Upon assumption my care patient hemodynamically stable at baseline mental status and has not had a seizure while being observed in the emergency department. 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 Cardozo. Laser Specialist disclaimer Much of this encounter note is an electronic otr flatbed driver spoken language to printed text. Electronic otr flatbed driver of the spoken language may permit errors. Although I have reviewed the note, some errors may still exist. Critical Care <Vini Bundy MD - Last Filed: 08/31/24 15:16> Critical Care Time Critical Care Time: Yes (cardiac, neuro) Attestation: On 08/31/24, the high probability of a clinically significant, sudden or life threatening deterioration of the following system(s) required my full and direct attention, intervention and personal management. The time I documented below is in addition to time spent performing reported procedures but includes the following listed in this critical care notation. Total Time Total Critical Care Time: 40
[2024-08-31 13:02] LABS: Alanine Aminotransferase 26 U/L (12-78); Albumin/Globulin Ratio 1.4 (1.1-1.8); Alkaline Phosphatase 90 U/L (38-126); Anion Gap 5.3 mEq/L (5-15); Aspartate Amino Transferase 44 U/L (14-36); Bilirubin,Total 0.5 mg/dl (0.2-1.3); Blood Urea Nitrogen 33 mg/dl (7-17); Calcium 10.3 mg/dl (8.4-10.2); Carbon Dioxide 27 mmol/L (22.0-30.0); Creatinine Clearance Estimated 39 mL/min (50-200); Estimated Glomerular Filt Rate 53 ml/min (>60); GFR (African American) 64 ML/MIN (>60); Globulin 2.9 g/dL (1.3-3.2); Glucose 104 mg/dl (74-100); Total Protein,Serum 7.1 g/dl (6.3-8.2)
[2024-08-31 13:11] LABS: Bacteria,Urine Trace /lpf; Squamous Epithelial Cell,Urine Occasional #/hpf (0-5); WBC,Urine Occasional #/hpf (0-3)
[2024-08-31] MEDS: MAGNESIUM OXIDE 400MG TABLET 800 MG PO (13:13)
[2024-08-31] MEDS: MAGNESIUM SULFATE IN WATER 2 GM/50 ML PIGGYBACK IV (13:13)
[2024-08-31 13:14] LABS: Troponin I 0.02 ng/ml (0.00-0.034)
[2024-08-31 13:14] LABS: Lactate Venous 1.4 mmol/L (0.4-2.0); VBG Base Excess -1.8 mmol/L (-2.4-2.3); VBG HCO3 22.7 mmol/L (23-30); VBG Oxygen Saturation 95.3 % (50-70); VBG PCO2 36.2 mmol/L (35-51); VBG PH 7.42 mmol/L (7.31-7.41); VBG PO2 75.3 mmol/L (28-40); VBG Total CO2 23.9 mmol/L (23-27)
[2024-08-31] MEDS: levETIRAcetam 2,000 MG in 0.9 % SODIUM CHLORIDE 100 ML 240 MG IV ×2 (13:14→21:05)
--- NOTE | 2024-08-31 13:14 | PC.NURSE ---
FAMILY UPDATED ON POC, QUESTIONS ENCOURAGED AND ANSWERED
[2024-08-31 13:19] LABS: T4 (Thyroxine) 8.9 ug/dl (5.53-11.0)
--- NOTE | 2024-08-31 13:27 | PC.NURSE ---
pt to CT via stretcher
[2024-08-31 13:30] LABS: Thyroid Stimulating Hormone 1.84 uIU/mL (0.465-4.68)
[2024-08-31] MEDS: 0.9 % SODIUM CHLORIDE 50 ML VIAL IV (13:37)
[2024-08-31] MEDS: IOPAMIDOL-370 (76%);100ML BOTTLE 80 ML IV (13:37)
[2024-08-31] MEDS: SODIUM CHLORIDE 0.9% 10ML SYR (RAD ONLY) 10 ML IV ×2 (13:37→17:17)
--- NOTE | 2024-08-31 13:45 | PC.NURSE ---
pt returned via stretcher from CT. Family at BS
[2024-08-31 13:57] LABS: Activated Partial Thrombo Time 29.5 seconds (22.8-30.6); Basophils # 0.1 K/mm3 (0-0.2); Basophils % 0.9 % (0.1-2.0); Eosinophils # 0.1 K/mm3 (0.0-0.4); Eosinophils % 0.7 % (0.1-12.0); Hemoglobin 11.7 g/dL (12.2-16.2); Lymphocytes # 1.9 K/mm3 (0.7-4.5); Lymphocytes % 21.3 % (10-50); Mean Corpuscular HGB Conc 33.4 g/dL (31.8-35.4); Mean Corpuscular Hemoglobin 30.8 pg (27.0-31.2); Mean Corpuscular Volume 92.1 fl (81-99); Mean Platelet Volume 8.5 fl (7.4-10.4); Monocytes % 10.7 % (1.7-9.3); Neutrophils # 5.9 K/mm3 (1.8-7.8); Neutrophils % 66.2 % (37.0-80.0); Platelet Count 525 K/mm3 (142-424); Red Cell Distribution Width 13.4 % (11.5-17.5); White Blood Count 8.9 K/mm3 (4.8-10.8)
[2024-08-31 14:16] LABS: INR 0.95 (0.9-1.1); Prothrombin Time 10.7 seconds (10.1-12.5)
[2024-08-31 14:31] LABS: Hemoglobin A1C 5.7 % (4.0-6.0)
--- NOTE | 2024-08-31 14:39 | PC.NURSE ---
Dr. Bundy at BS for update on POC; family at BS
--- NOTE | 2024-08-31 14:39 | PC.NURSE ---
Dr. Bundy at bedside giving update to pt and family
--- NOTE | 2024-08-31 14:40 | PC.NURSE ---
DR LUKE AT BEDSIDE TO UPDATE PT AND FAMILY
[2024-08-31 14:42] LABS: HIV Combo NEGATIVE (Negative)
--- NOTE | 2024-08-31 15:15 | MR_ITS ---
PROCEDURE INFORMATION: Exam: MR Head Without and With Contrast Exam date and time: 08/31/2024 4:32 PM Age: 88 years old Clinical indication: Altered mental status/memory loss; Additional info: AMS, seizure like activityx3 TECHNIQUE: Imaging protocol: Magnetic resonance imaging of the head without and with contrast. Contrast material: PROHANCE; Contrast volume: 17 ml; Contrast route: IV; COMPARISON: CT ANGIO HEAD 08/31/2024 1:36 PM FINDINGS: Brain: The left hippocampus appears mildly atrophic compared to the right, raising concern for mesial temporal sclerosis. Both hippocampi by appear relatively increased in signal intensity. There is moderate generalized cerebral atrophy. No intracranial mass, hemorrhage or evidence of acute ischemia. Cerebral ventricles: Normal. No ventriculomegaly. Bones: Unremarkable. Paranasal sinuses: Mild mucosal thickening in the right maxillary sinus. Sinuses are otherwise clear. Mastoid air cells: Normal as visualized. No mastoid effusion. Orbital cavities: Unremarkable. Soft tissues: Unremarkable. 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 Evaluation is somewhat limited by the presence of generalized cerebral atrophy. No acute intracranial abnormality evident.
--- NOTE | 2024-08-31 15:22 | PC.NURSE ---
DR LUKE AT BEDSIDE TO UPDATE PT AND FAMILY
--- NOTE | 2024-08-31 15:29 | PC.NURSE ---
@1441 Called MRI to s/w Sandra to check on possibility of Brain MRI @1450 MRI states they can do MRI @ 1630. @1454 S/w Deandra in Care management and it is approved.
[2024-08-31 15:40] LABS: Cholesterol 188 mg/dl (140-200); Lipase 167 U/L (23-300); Triglycerides 72 mg/dl (30-150); VLDL Cholesterol 14 mg/dL (0-40)
[2024-08-31 15:41] LABS: Chol/HDL Ratio 4.2 (1-3.5); HDL Cholesterol 45 mg/dl (40-60)
[2024-08-31 15:52] LABS: Direct LDL Cholesterol 113.15 mg/dL (100-129); NT Pro Brain Natriuretic Pep. 1120 pg/mL (0-450)
[2024-08-31 16:05] LABS: Troponin I 0.02 ng/ml (0.00-0.034)
--- NOTE | 2024-08-31 16:18 | PC.NURSE ---
pt gone to mri
[2024-08-31] MEDS: GADOTERIDOL INJ 20ML SYRINGE 17 ML IV (17:17)
--- NOTE | 2024-08-31 17:22 | PC.NURSE ---
PT RETURNED FROM MRI
--- NOTE | 2024-08-31 17:51 | PC.NURSE ---
ROUNDED ON PT, FAMILY UPDATED ON POC. NO NEEDS AT THIS TIME. CALL LIGHT WITHIN REACH
--- NOTE | 2024-08-31 18:26 | PC.NURSE ---
DR MOREAU AT BEDSIDE
--- NOTE | 2024-08-31 18:47 | PC.NURSE ---
IMAGES POWERSHARED WITH [facility]
--- NOTE | 2024-08-31 18:50 | PC.NURSE ---
Dr. Tafoya speaking with [facility] for possible transfer
--- NOTE | 2024-08-31 20:26 | PC.NURSE ---
family stepped out requesting something to eat for patient and update on transfer. Hanna Yoder RN in room speaking to family. Patient given chicken salad sandwich and water
[2024-08-31] MEDS: LACTATED RINGERS 1000ML 1,000 ML 100 ML IV (21:06)
--- NOTE | 2024-08-31 21:07 | ECG_ITS ---
APPROVED REPORT Exam: Resting ECG HR:61 bpm ECG Measurements Heart Rate 61 AXES AK 206 P 62 QRSd 96 QRS 71 QT 528 T 172 QTc 531 Conclusion SINUS RHYTHM MARKED T-WAVE ABNORMALITY, CONSIDER ANTEROLATERAL ISCHEMIA [-0.5+ mV T-WAVE IN I/aVL/V3-V6] ABNORMAL ECG Electronically signed by : MARIZA REID, 09/01/2024 07:19:20
[2024-08-31] MEDS: LORazepam 2MG/ML VIAL 2 MG IV (21:12)
--- NOTE | 2024-08-31 21:12 | PC.NURSE ---
Dr. Curiel paged, on phone with ED doctor at this time
[2024-08-31 22:04] LABS: Troponin I 0.03 ng/ml (0.00-0.034)
[2024-09-01 08:14] LABS: HCV Ab Non Reactive (Non Reactive)
== END 2024-08-31 23:11 | disposition short-term general hospital (02) ==
PROVIDERS: Emergency Medicine; Emergency Provider Student in an Organized Health Care Education/Training Program; PCP Family Medicine
DX: R56.9 Unspecified convulsions (principal); R41.82 Altered mental status, unspecified; R25.9 Unspecified abnormal involuntary movements
CPT/HCPCS: 70450; 70496; 70498; 70553; 71045; 80053; 80061; 81001; 82803; 83036; 83605; 83690; 83735; 83880; 84436; 84443; 84484; 85025; 85610; 85730; 86803; 87040; 87389; 93005; 96365; 96374; 96375; 99291; A9576; J1953; J2060; J3475; J7120; Q9967

== ENCOUNTER 2024-10-15 14:14 | Outpatient (CLI) | payer MEDICARE, SELFPAY ==
--- NOTE | 2024-10-15 14:18 | XR_ITS ---
FINAL REPORT CLINICAL HISTORY: lt shoulder pain COMPARISON: 02/07/2024 FINDINGS: LEFT SHOULDER 2 views of the left shoulder were obtained. There is no acute fracture or dislocation. Visualized joint spaces are normally aligned. Soft tissues are unremarkable. IMPRESSION: No acute bony abnormality. Reviewed, Interpreted and Dictated by Tim Michel MD Transcribed by Viviana Kelly Authenticated and [facility]
== END 2024-10-15 23:59 | disposition home or self-care (01) ==
LOC: RAD 14:16
PROVIDERS: PCP Family Medicine; Visit Provider Physician Assistant
DX: M25.512 Pain in left shoulder (principal)
CPT/HCPCS: 73030

== ENCOUNTER 2024-12-02 01:10 | Emergency (ER) | payer MEDICARE, SELFPAY ==
[2024-12-02] VITALS (11 sets, daily range): BP systolic 154–188; BP diastolic 66–80; PULSE 64–76; RESP 16; TEMP 36.6–37.2; O2SAT 90–96; BMI 23.8
--- NOTE | 2024-12-02 01:32 | CT_ITS ---
PROCEDURE INFORMATION: Exam: CT Head Without Contrast Exam date and time: 12/02/2024 1:58 AM Age: 89 years old Clinical indication: Injury or trauma; Fall; Blunt trauma (contusions or hematomas) TECHNIQUE: Imaging protocol: Computed tomography of the head without contrast. Radiation optimization: All CT scans at this facility use at least one of these dose optimization techniques: automated exposure control; mA and/or kV adjustment per patient size (includes targeted exams where dose is matched to clinical indication); or iterative reconstruction. COMPARISON: MR HEAD/BRAIN WO/W CON 08/31/2024 4:32 PM FINDINGS: Brain: There is no area of intraparenchymal or extra-axial hemorrhage present. There is no focal mass. There is no midline shift. The estevez-white matter junction is intact. Cerebral ventricles: No ventriculomegaly. Paranasal sinuses: Moderate right maxillary sinus disease. Mastoid air cells: Visualized mastoid air cells are well aerated. Bones: Unremarkable. No acute fracture. Soft tissues: Right occipital scalp soft tissue swelling. IMPRESSION: 1. Right occipital scalp soft tissue swelling. 2. Otherwise unremarkable examination of the brain. There is no acute intracranial abnormality seen.
--- NOTE | 2024-12-02 01:32 | XR_ITS ---
PROCEDURE INFORMATION: Exam: XR Pelvis Exam date and time: 12/02/2024 2:30 AM Age: 89 years old Clinical indication: Injury or trauma; Fall; Blunt trauma (contusions or hematomas); Bilateral; Pelvic region TECHNIQUE: Imaging protocol: Radiologic exam of the pelvis. Views: 1 or 2 view. COMPARISON: CT ABDOMEN PELVIS WO CON 05/29/2020 6:26 PM FINDINGS: Bones/joints: Cortical irregularity in the right inferior pubic rami. There is no dislocation. Soft tissues: Unremarkable. Organs: There is excreted contrast in the urinary bladder. IMPRESSION: Cortical irregularity in the right inferior pubic rami. Suspicious for nondisplaced fracture.
--- NOTE | 2024-12-02 01:32 | CT_ITS ---
PROCEDURE INFORMATION: Exam: CT Cervical Spine Without Contrast Exam date and time: 12/02/2024 2:13 AM Age: 89 years old Clinical indication: Injury or trauma; Fall; Blunt trauma; Additional info: Fall, advanced age TECHNIQUE: Imaging protocol: Computed tomography of the cervical spine without contrast. Radiation optimization: All CT scans at this facility use at least one of these dose optimization techniques: automated exposure control; mA and/or kV adjustment per patient size (includes targeted exams where dose is matched to clinical indication); or iterative reconstruction. COMPARISON: [facility] CT cervical spine wo con 10/04/2018 9:45 PM FINDINGS: Bones: The vertebral bodies are normal height. There is no fracture present. There is no evidence for ligamentous injury. The atlanto dens interval is intact. There is no dens fracture. There are moderate diffuse degenerative changes. Lungs: Lung apices are normal. Soft tissues: There is no abnormality of the prevertebral soft tissues. IMPRESSION: 1. No evidence for significant traumatic injury to the cervical spine. 2. Moderate degenerative changes.
--- NOTE | 2024-12-02 01:32 | XR_ITS ---
PROCEDURE INFORMATION: Exam: XR Chest Exam date and time: 12/02/2024 2:30 AM Age: 89 years old Clinical indication: Injury or trauma; Fall; Blunt trauma (contusions or hematomas) TECHNIQUE: Imaging protocol: Radiologic exam of the chest. Views: 1 view. COMPARISON: CR XR CHEST PORTABLE 08/31/2024 1:36 PM FINDINGS: Lungs: Unremarkable. No consolidation. Pleural spaces: Unremarkable. No pleural effusion. No pneumothorax. Heart/Mediastinum: Unremarkable. No cardiomegaly. Vasculature: Calcification of the aorta. Bones/joints: Unremarkable. IMPRESSION: No acute disease.
--- NOTE | 2024-12-02 01:42 | CT_ITS ---
PROCEDURE INFORMATION: Exam: CTA Neck With Contrast Exam date and time: 12/02/2024 2:18 AM Age: 89 years old Clinical indication: Injury or trauma; Fall; Blunt trauma; Neck; Additional info: Fall struck chin, bruise under jaw TECHNIQUE: Imaging protocol: Computed tomographic angiography of the neck with contrast. Exam focused on the cervical segments of the vasculature. 3D rendering (Not supervised by radiologist): MIP and/or 3D reconstructed images were created by the technologist. Radiation optimization: All CT scans at this facility use at least one of these dose optimization techniques: automated exposure control; mA and/or kV adjustment per patient size (includes targeted exams where dose is matched to clinical indication); or iterative reconstruction. Contrast material: ISOUVE 370; Contrast volume: 80 ml; Contrast route: INTRAVENOUS (IV); COMPARISON: CT ANGIO NECK 08/31/2024 1:36 PM FINDINGS: Right common carotid artery: No dissection or laceration. No significant stenosis or occlusion. Right internal carotid artery: No dissection or laceration. No significant stenosis or occlusion. Right external carotid artery: No dissection or laceration. No significant stenosis or occlusion. Left common carotid artery: No dissection or laceration. No significant stenosis or occlusion. Left internal carotid artery: No dissection or laceration. No significant stenosis or occlusion. Left external carotid artery: No dissection or laceration. No significant stenosis or occlusion. Right vertebral artery: No dissection or laceration. No significant stenosis or occlusion. Left vertebral artery: No dissection or laceration. No significant stenosis or occlusion. Soft tissues: Normal. No significant soft tissue swelling. Bones/joints: There is no cervical fracture or dislocation present. IMPRESSION: No significant traumatic injury of the major vessels. REFERENCES: NASCET CRITERIA. The degree of stenosis in the cervical segment of the internal carotid artery is based on NASCET criteria. Normal is no stenosis. Mild is less than 50% stenosis. Moderate is 50-69% stenosis. Severe is 70% to 99% stenosis. Total occlusion is no detectable patent lumen.
[2024-12-02 01:47] LABS: Basophils # 0.1 K/mm3 (0-0.2); Basophils % 0.5 % (0.1-2.0); Eosinophils # 0.3 K/mm3 (0.0-0.4); Hematocrit 37.7 % (37.0-47.0); Hemoglobin 13.1 g/dL (12.2-16.2); Lymphocytes # 2.8 K/mm3 (0.7-4.5); Lymphocytes % 19.3 % (10-50); Mean Corpuscular HGB Conc 34.7 g/dL (31.8-35.4); Mean Corpuscular Hemoglobin 32.3 pg (27.0-31.2); Mean Corpuscular Volume 92.9 fl (81-99); Mean Platelet Volume 7.8 fl (7.4-10.4); Monocytes # 1.4 K/mm3 (0.1-1.0); Monocytes % 9.9 % (1.7-9.3); Neutrophils # 9.6 K/mm3 (1.8-7.8); Neutrophils % 66.3 % (37.0-80.0); Platelet Count 494 K/mm3 (142-424); Red Blood Count 4.06 M/mm3 (4.20-5.40); Red Cell Distribution Width 14.5 % (11.5-17.5); White Blood Count 14.4 K/mm3 (4.8-10.8)
--- NOTE | 2024-12-02 01:48 | HMH.EDGENADL ---
Discharge Plan Disposition Patient Disposition: Xfer Short-Term Hosp Condition: Fair Prescriptions Prescriptions: No Action donepezil 5 mg tablet 10 mg PO DAILY fluticasone propionate 50 mcg/actuation spray,suspension 2 spray intranasal DAILY PRN Patient Comments: ADMINISTER 2 SPRAYS DIRECTED ONCE DAILY metoclopramide HCl 5 mg tablet 5 mg PO BID Patient Comments: TAKE 1 TABLET BY MOUTH 4 TIMES A DAY BEFORE MEALS AND AT BEDTIME loperamide 2 mg capsule 2 mg PO QID PRN acetaminophen [Tylenol Extra Strength] 500 mg tablet 500 mg PO Q6H PRN loratadine [Claritin] 10 mg tablet 10 mg PO DAILY PreserVision AREDS 4,296 mcg-226 mg-90 mg capsule 1 cap PO DAILY diclofenac sodium [Voltaren Arthritis Pain] 1 % gel 2 g topical QID Rx Instructions: apply to single elbow, wrist or hand; for hand includes palm/fingers/back of hand Azo Cranberry 250 mg tablet,chewable 250 mg PO TID levothyroxine 25 mcg tablet 25 mcg PO DAILY trazodone 50 mg tablet 25 mg PO HS PRN Patient Comments: TAKE 1/2 TABLET BY MOUTH AT BEDTIME lacosamide [Vimpat] 50 mg tablet 50 mg PO BID Qty: 30 0RF Gemtesa 75 mg tablet 75 mg PO DAILY Qty: 30 2RF diltiazem HCl 240 mg capsule,extended release 24hr 240 mg PO QAM lidocaine 5 % cream 1 applic topical BID PRN (Reason: pain) Qty: 15 1RF Rx Instructions: Apply to callus sites as needed spironolactone 25 mg tablet 12.5 mg PO Q OTHER DAY 90 Days Qty: 30 3RF jhtslhfw-yrc-MV-lycopen-lutein 1 EACH tablet 1 each PO DAILY Referrals Follow up/Referrals: Provider,Referral, MD [Primary Care Provider] - See instructions Clinical Impressions Clinical Impression: Fall, Closed fracture of pubic ramus Print Language Print Language: Maori Discharge ED Provider: Marco Easley Adult HPI General Chief complaint: Fall Stated complaint: fall/head injury Time Seen by Provider: 12/02/24 01:32 Mode of Arrival: EMS Source of Information: Patient and EMS Description of Symptoms (Recalled from ER Triage Doc. by RN): Patient is from [facility]- has alzheimers. Patient had an unwitnessed fall- has a lac on the right ear. C-Collar in place. States she has chin pain, neck pain, back pain. bilateral hip pain. Not on blood thinners. History of Present Illness HPI narrative: 89-year-old female with known dementia presents from [place]. Patient had an unwitnessed fall and was found down but alert. She does not take blood thinners. Unknown loss of consciousness. Facility was concerned that patient has laceration on the ear. Patient reports she does not know exactly how she fell but she knows she struck her chin on the edge of the bed and does describe chin pain. She reports mild neck pain but no headache or dizziness, to me she reports no back pain or hip pain. She states she has chronic aches and pains but nothing is worse than normal right now. She denies any numbness, tingling, or weakness. Family at bedside reports patient is at her normal mental baseline. She is accurately answering questions at this time and is oriented. Related Data Home Medications ?Medication ?Instructions ?Recorded ?Confirmed levothyroxine 25 mcg tablet 25 mcg PO DAILY Thyroid 09/17/19 11/27/24 whiitykq-wzq-hmnuv acid 0.4 1 each PO DAILY Supplement 05/30/20 11/27/24 mg-lycopene 300 mcg-lutein 250 mcg tablet fluticasone propionate 50 2 spray intranasal DAILY PRN 02/07/24 11/27/24 mcg/actuation nasal spray,suspension diltiazem HCl 240 mg 240 mg PO QAM 09/20/24 11/27/24 capsule,extended release 24 hr donepezil 5 mg tablet 10 mg PO DAILY 09/20/24 11/27/24 metoclopramide HCl 5 mg tablet 5 mg PO BID 09/20/24 11/27/24 trazodone 50 mg tablet 25 mg PO HS PRN 09/20/24 11/27/24 acetaminophen 500 mg tablet 500 mg PO Q6H PRN 11/06/24 11/27/24 (Tylenol Extra Strength) cranberry fruit concentrate 250 mg 250 mg PO TID 11/06/24 11/27/24 chewable tablet (Azo Cranberry) diclofenac sodium 1 % topical gel 2 g topical QID 11/06/24 11/27/24 (Voltaren Arthritis Pain) loperamide 2 mg capsule 2 mg PO QID PRN 11/06/24 11/27/24 loratadine 10 mg tablet (Claritin) 10 mg PO DAILY 11/06/24 11/27/24 vitamins A,C,E-evod-vmwwhv 4,296 1 cap PO DAILY 11/06/24 11/27/24 mcg-226 mg-90 mg capsule (PreserVision AREDS) Previous Rx's ?Medication ?Instructions ?Recorded lacosamide 50 mg tablet (Vimpat) 50 mg PO BID #30 tabs 09/20/24 vibegron 75 mg tablet (Gemtesa) 75 mg PO DAILY #30 tabs 09/20/24 spironolactone 25 mg tablet 12.5 mg (1/2 x 25 mg) PO Q OTHER 10/26/24 DAY 90 days #30 tabs lidocaine 5 % topical cream 1 applic topical BID PRN pain #15 11/27/24 grams Allergies Allergy/AdvReac Type Severity Reaction Status Date / Time morphine Allergy Mild ITCHING Verified 11/27/24 15:28 demeclocycline Allergy Unknown Verified 11/27/24 15:28 NSAIDS (Non-Steroidal AdvReac Severe Verified 11/27/24 15:28 Anti-Inflamma [facility] Disclaimer: The information contained in this section may have been updated after the patient was seen, as this information can be updated by other users. Medical History Left shoulder pain Edema of left lower extremity Moderate aortic regurgitation Social History Smoking Status: Never smoker second hand exposure: No alcohol intake: never substance use type: denies use current occupational status: retired Travel in the last 8 weeks: Inside the [place] housing: house current occupational exposures/hazards: No caffeine: No Have you lived/traveled outside US in past 30 days?: No Contact w/someone who lives/traveled outside US past 30 days?: No Exposure to someone with infectious disease in past 14 days?: No Do you have a fever (greater than 100.4 F or 38 C)?: No Have you tested positive for COVID-19: No Exposed to someone with COVID-19 in past 14 days?: No Do you have a sore throat?: No Do you have a cough?: No Do you have any weakness?: No Do you have any diarrhea?: No Are you experiencing any unusual bleeding?: No Do you have any muscle aches/pain?: No Do you have any abdominal pain?: No Are you experiencing loss of taste or smell?: No Other Medical History Have you received the Flu Vaccine for this season: Yes Have you received the Pneumonia Vaccine: No ROS Obtained: Yes Systems reviewed as appropriate & no additional complaints except as documented Per HPI Physical Exam General General appearance: alert and in no apparent distress Head Head exam: normocephalic Eye Eye exam: Present PERRL and EOMI ENT ENT exam: Present normal oropharynx, mucous membranes moist and other (Right ear wounds: 1 cm linear hemostatic laceration helix to the antihelix with small cartilage damage of the helix; 2 mm posterior hemostatic wound on the posterior aspect of the helix with no cartilage exposure) Neck Neck exam: Present normal inspection, trachea midline, tenderness (Mild posterior tenderness without step-off or deformity) and other (C-collar in place; patient has small area of bruising and swelling in the submandibular space but there is no evidence of rapidly expanding hematoma, no pulsatility) Chest Chest inspection: Present normal inspection and symmetric chest wall rise; Absent tenderness Respiratory Respiratory exam: Present normal lung sounds bilaterally; Absent respiratory distress, wheezes or stridor Cardiovascular Cardiovascular exam: Present regular rate and normal rhythm Abdominal Exam Abdominal exam: Present soft; Absent distention, tenderness, guarding or rebound Extremities Exam Extremities exam: Present full ROM (Patient has no pain with range of motion, specifically no pain with range of motion of the shoulders or hips); Absent tenderness or joint swelling Back Exam Back exam: Absent tenderness, paraspinal tenderness or vertebral tenderness Neurological Exam Neurological exam: Present alert and oriented X3 (Patient is fully oriented but does have transient moments of confusion); Absent motor sensory deficit Psychiatric Psychiatric exam: Present normal affect and normal mood Skin Skin exam: Present warm and dry Medical Decision Making Medical Records Medical records reviewed: Yes I reviewed the patient's medical records. Screening: Per USPSTF and CDC recommendations, given the prevalence of disease in our region, it is our hospital?s policy to screen for HIV and viral Hepatitis for all patients aged 18 and over and those with ongoing risk factors. MR Comment: Patient was seen by GI at the end of October. Recommendation at that time was no NSAIDs or alcohol. Scheduling EGD. Duy Inquiry Pt receiving controlled substance: No Vital Signs: 12/02/24 01:16 12/02/24 01:30 12/02/24 02:00 Temperature 97.9 F Temperature Source Oral Pulse Rate 70 64 Pulse Rate [Right Radial] 66 Respiratory Rate 16 Blood Pressure 167/75 H 171/67 H Blood Pressure [Right Arm] 181/70 H Blood Pressure Mean [Right Arm] 107 Blood Pressure Source [Right Arm] Automatic Cuff Blood Pressure Position [Right Arm] Supine 02 Sat by Pulse Oximetry 92 L 91 L 90 L Oxygen Delivery Method Room Air Room Air 12/02/24 02:30 12/02/24 03:00 12/02/24 03:30 Temperature Temperature Source Pulse Rate 68 68 71 Pulse Rate [Right Radial] Respiratory Rate Blood Pressure 186/72 H 182/80 H 188/74 H Blood Pressure [Right Arm] Blood Pressure Mean [Right Arm] Blood Pressure Source [Right Arm] Blood Pressure Position [Right Arm] 02 Sat by Pulse Oximetry 91 L 94 L 94 L Oxygen Delivery Method Room Air Room Air 12/02/24 04:00 12/02/24 04:30 12/02/24 05:30 Temperature Temperature Source Pulse Rate 71 71 76 Pulse Rate [Right Radial] Respiratory Rate Blood Pressure 175/72 H 176/70 H 154/66 H Blood Pressure [Right Arm] Blood Pressure Mean [Right Arm] Blood Pressure Source [Right Arm] Blood Pressure Position [Right Arm] 02 Sat by Pulse Oximetry 93 L 93 L 94 L Oxygen Delivery Method Room Air Room Air Room Air Lab Data Lab Results 12/02/24 01:10: WBC 14.4 H, RBC 4.06 L, Hgb 13.1, Hct 37.7, MCV 92.9, MCH 32.3 H, MCHC 34.7, RDW 14.5, Plt Count 494 H, MPV 7.8, Neut % (Auto) 66.3, Lymph % (Auto) 19.3, [place] % (Auto) 9.9 H, Eos % (Auto) 2.0, Baso % (Auto) 0.5, Neut # (Auto) 9.6 H, Lymph # (Auto) 2.8, [place] # (Auto) 1.4 H, Eos # (Auto) 0.3, Baso # (Auto) 0.1, PT 9.9 L, INR 0.87 L, Sodium 123 L, Potassium 5.5 H, Chloride 89 L, Carbon Dioxide 33 H, Anion Gap 6.5, BUN 22 H, Creatinine 1.00, Estimated Creat Clear 42, Estimated GFR 52 L, Est GFR ( Amer) 63, Glucose 113 H, Calcium 9.6, Total Bilirubin 0.3, AST 40 H, ALT 38, Alkaline Phosphatase 96, Total Protein 7.3, Albumin 4.5, Globulin 2.8, Albumin/Globulin Ratio 1.6 12/02/24 04:40: Sodium 123 L, Potassium 5.1, Chloride 90 L, Carbon Dioxide 28, Anion Gap 10.1, BUN 19 H, Creatinine 0.80, Estimated Creat Clear 42, Estimated GFR 68, Est GFR ( Amer) 82 D, Glucose 104 H, Calcium 10.8 H 12/02/24 04:44: Urine Color Yellow, Urine Appearance Clear, Urine pH 8.0, Ur Specific [place] 1.015, Urine Protein Negative, Urine Glucose (UA) Negative, Urine Ketones Negative, Urine Blood Negative, Urine Nitrate Negative, Urine Bilirubin Negative, Urine Urobilinogen 0.2, Ur Leukocyte Esterase Negative, Urine RBC None, Urine WBC None, Ur Squamous Epith Cells Occasional, Urine Bacteria None 12/02/24 01:10 12/02/24 04:40 Orders (Tests/Meds): ED MEDICATIONS Generic Name Dose Route Start Last Admin Trade Name Freq PRN Reason Stop Dose Admin Sodium Chloride 10 ml 12/02/24 02:25 12/02/24 02:26 Sodium Chloride 0.9% 10ml Syr (Rad Only) IV 01/01/25 02:24 10 ml NEEDED PRN Administration Maintain IV Site Discontinued Medications Generic Name Dose Route Start Last Admin Trade Name Freq PRN Reason Stop Dose Admin Cocaine HCl 2 ml 12/02/24 03:10 12/02/24 03:15 Cocaine 4% Topical Soln 4ml Bottle TP 12/02/24 03:11 2 ml ONCE ONE Administration Lactated Ringer's 1,000 mls @ 999 mls/hr 12/02/24 01:54 12/02/24 01:59 Lactated Ringer's 1000 Ml Bag IV 12/02/24 02:54 999 mls/hr .Q1H1M ONE Administration Iopamidol 80 ml 12/02/24 02:25 12/02/24 02:26 Iopamidol-370 (76%);100ml Bottle IV 12/02/24 02:26 80 ml ONCE ONE Administration Lidocaine HCl 2 ml 12/02/24 03:10 12/02/24 03:14 Lidocaine 2% Urojet 10ml TP 12/02/24 03:11 2 ml ONCE ONE Administration Sodium Chloride 40 ml 12/02/24 02:25 12/02/24 02:26 0.9 % Sodium Chloride 50 Ml Vial IV 12/02/24 02:26 40 ml ONCE ONE Administration Tetanus/Reduced Diphtheria/Acell Pertussis 0.5 ml 12/02/24 01:41 12/02/24 01:48 Tet/Diphth/Pert-Adult 0.5ml Syringe IM 12/02/24 01:42 Not Given .ONCE ONE ORDERS Category Date Time Status CT angio neck Stat Cat Scan 12/02/24 01:[address] bony pelvis Stat Cat Scan 12/02/24 04:[address] cervical spine wo con Stat Cat Scan 12/02/24 01:[address] facial bones wo con Stat Cat Scan 12/02/24 01:[address] head/brain wo con Stat Cat Scan 12/02/24 01:32 Completed CXR --portable [XR chest portable] Stat Exams 12/02/24 01:32 Completed Pelvis XR 1-2 views [XR pelvis 1-2V] Stat Exams 12/02/24 01:32 Completed XR clavicle LT Stat Exams 12/02/24 04:06 Taken BMP [Basic Metabolic Panel] Stat Lab 12/02/24 04:40 Completed CBC w/Auto Diff [Complete Blood Count Auto Diff] Stat Lab 12/02/24 01:10 Completed CMP [Comprehensive Metabolic Panel] Stat Lab 12/02/24 01:10 Completed PT INR [Prothrombin Time INR] Stat Lab 12/02/24 01:10 Completed Urinalysis and Microscopic Stat Lab 12/02/24 04:44 Completed ECG Request Stat Y 12/02/24 01:54 Ordered Medical Decision Narrative: In summary, this 89-year-old female with comorbidities described in the HPI not at goal therapy presents to the emergency department today with concerns of injury from fall. On initial evaluation patient is hemodynamically stable, afebrile, currently GCS 15, she has moments of confusion this is consistent with her known dementia, she has mild swelling under the mandible with bruise but no evidence of expanding hematoma or pulsatile mass, mild tenderness of the posterior neck with no deformity or step-off, c-collar in place, no neurodeficits, patient has laceration to the right ear as described in physical exam. Differential diagnosis includes but is not limited to intracranial bleed, skull fracture, C-spine fracture, consider the possibility of vascular soft tissue injury in the neck lab lower suspicion for this, also considered possibility of facial fracture. Based on these concerns, I ordered basic serum labs, CT imaging. Labs reviewed by me demonstrate mild leukocytosis which is nonspecific and nonactionable, no anemia, thrombocythemia improved from previous, nonactionable PT/INR, CMP with prerenal azotemia and patient is receiving IV fluids, she does have hyponatremia, mild hyperkalemia. She is receiving LR. Her most recent set of labs from August and patient has had somewhat low sodium in the past though not as bad as today. With her mild hyperkalemia, I ordered ECG and personally interpreted that. ECG personally interpreted demonstrates sinus rhythm, first-degree AV block, rate 64, normal axis, normal QTc, no STEMI, no hyperacute T waves. Personally interpreted chest x-ray and and concern there may be a distal clavicle fracture without significant displacement. Radiology read does not identify this but I discussed this with the radiologist and he stated a dedicated view of the clavicle would be helpful for further evaluation. This has been ordered. I personally interpreted x-ray pelvis and do not appreciate obvious displaced fracture. Radiology read comments on possible right ramus fracture. On reevaluation, patient has painless range of motion of the hips and does not have tenderness to palpation of the pelvis or pain with testing of pelvic stability, however with this finding on x-ray, will send for CT bony pelvis. CT head personally interpreted does not demonstrate acute intracranial injury, I also personally interpreted CT C-spine do not appreciate acute cervical spine injury though there are degenerative changes. See radiology reads for final interpretations. Radiology reads do not comment on any vascular injury or other obvious soft tissue injury in the neck though there is swelling in the submandibular space. No facial fractures. See radiology reads for full interpretations. I repaired right ear lacerations after they had been treated with lidocaine/cocaine solution for topical anesthetic. See procedure note. Cartilage was well aligned and easily able to be covered on the helix where it had been exposed with slight damage. The wounds were hemostatic. Patient tolerated procedure well. Records demonstrate patient had her last Tdap in 2019. Tdap was not administered today. I personally interpreted the newly perform CT bony pelvis and do appreciate right ramus fracture. Minimally displaced. Radiology read pending. I personally interpreted left clavicle x-ray and do not appreciate obvious osseous injury. Radiology read pending. Patient had been complaining of painful urination and urinalysis was sent. This is negative for findings of infection. Based on my personal interpretation of the CT bony pelvis, I reached out to for transfer for pelvis fracture. Unfortunately I do not have orthopedics available at this time at this facility therefore patient requires further evaluation elsewhere. She does not have pain with range of motion of the hips but does have significant discomfort with being rolled or trying to sit up, she will not be able to bear weight secondary to pain at this time. She also has hyponatremia which requires further workup. I believe the best place for her at this time would be a facility with higher level of care including inpatient orthopedics. Reach out to and was able to speak with Dr. Marin in the transfer center. After reviewing the patient's case, labs, imaging findings, patient was graciously accepted to [facility] for ED to ED transfer due to pelvis fracture. Family agreeable to this plan. Patient will go via ambulance for continued monitoring and management. Patient was transferred in stable condition. Procedures Laceration Laceration 1: Site: face (Right ear) Size (cm): 1 Description: linear and other (Involves cartilage of the helix) Local Anesthetic: other anesthetic (Topical lidocaine and cocaine) Pre-repair: wound explored and irrigated extensively Skin layer closed with: other (Fast gut) Size (cm): 5-0 Number of sutures: 4 Technique: simple, interrupted (4 sutures were placed within the skin layer to cover the cartilage in hopes of limiting potential cartilage necrosis. No repair of the cartilage itself as there was only a microscopic area of damage.) Laceration 2: Site: face (Right ear, posterior) Size (cm): 0.2 Description: flap Depth: simple, single layer Local Anesthetic: other anesthetic (Topical lidocaine, cocaine) Pre-repair: wound explored and irrigated extensively Skin layer closed with: other (Fast gut) Size (cm): 5-0 Number of sutures: 1 Technique: simple, interrupted (Good approximation. Hemostatic) Critical Care Critical Care Time Critical Care Time: No
[2024-12-02 01:49] LABS: Albumin Level 4.5 g/dl (3.5-5.0); Chloride 89 mmol/L (98-107); Potassium 5.5 mmoL/L (3.5-5.1); Sodium 123 mmol/L (136-145)
--- NOTE | 2024-12-02 01:50 | CT_ITS ---
PROCEDURE INFORMATION: Exam: CT Maxillofacial Without Contrast Exam date and time: 12/02/2024 2:15 AM Age: 89 years old Clinical indication: Injury or trauma; Fall; Blunt trauma (contusions or hematomas); Jaw; Bilateral; Additional info: Fall struck chin TECHNIQUE: Imaging protocol: Computed tomography of the face without contrast. Radiation optimization: All CT scans at this facility use at least one of these dose optimization techniques: automated exposure control; mA and/or kV adjustment per patient size (includes targeted exams where dose is matched to clinical indication); or iterative reconstruction. COMPARISON: CT HEAD/BRAIN WO CON 12/02/2024 1:58 AM FINDINGS: Paranasal sinuses: Normal. No air-fluid levels. Orbital cavities: No acute fracture. No retrobulbar hematoma. Globes are unremarkable. No inflamation. Bones: No acute fracture. Soft tissues: Soft tissue swelling inferior to the mandible. IMPRESSION: 1. No evidence for significant traumatic injury to the facial bones or orbits. 2. Soft tissue swelling inferior to the mandible.
[2024-12-02 01:52] LABS: Alanine Aminotransferase 38 U/L (12-78); Albumin/Globulin Ratio 1.6 (1.1-1.8); Alkaline Phosphatase 96 U/L (38-126); Anion Gap 6.5 mEq/L (5-15); Aspartate Amino Transferase 40 U/L (14-36); Bilirubin,Total 0.3 mg/dl (0.2-1.3); Blood Urea Nitrogen 22 mg/dl (7-17); Calcium 9.6 mg/dl (8.4-10.2); Carbon Dioxide 33 mmol/L (22.0-30.0); Creatinine Clearance Estimated 42 mL/min (50-200); Estimated Glomerular Filt Rate 52 ml/min (>60); GFR (African American) 63 ML/MIN (>60); Globulin 2.8 g/dL (1.3-3.2); Glucose 113 mg/dl (74-100); Total Protein,Serum 7.3 g/dl (6.3-8.2)
[2024-12-02 01:54] LABS: INR 0.87 (0.9-1.1); Prothrombin Time 9.9 seconds (10.1-12.5)
--- NOTE | 2024-12-02 01:54 | ECG_ITS ---
APPROVED REPORT Exam: Resting ECG HR:64 bpm ECG Measurements Heart Rate 64 AXES MT 245 P 64 QRSd 110 QRS 71 QT 422 T 92 QTc 431 Conclusion SINUS RHYTHM WITH FIRST DEGREE AV BLOCK ABNORMAL ECG No STEMI Electronically signed by : DONNIE TREJO, 12/02/2024 06:45:11
[2024-12-02] MEDS: LACTATED RINGERS 1000ML 1,000 ML 999 ML IV (01:59)
[2024-12-02] MEDS: IOPAMIDOL-370 (76%);100ML BOTTLE 80 ML IV (02:26)
[2024-12-02] MEDS: 0.9 % SODIUM CHLORIDE 50 ML VIAL 40 ML IV (02:26)
[2024-12-02] MEDS: SODIUM CHLORIDE 0.9% 10ML SYR (RAD ONLY) 10 ML IV (02:26)
--- NOTE | 2024-12-02 02:42 | PC.NURSE ---
Purewick placed Pt repositioned for comfort
[2024-12-02] MEDS: LIDOCAINE 2% UROJET 10ML 2 ML TP (03:14)
[2024-12-02] MEDS: COCAINE 4% TOPICAL SOLN 4ML BOTTLE 2 ML TP (03:15)
--- NOTE | 2024-12-02 04:06 | CT_ITS ---
PROCEDURE INFORMATION: Exam: CT Pelvis Without Contrast, Skeleton Exam date and time: 12/02/2024 4:11 AM Age: 89 years old Clinical indication: Injury or trauma and abnormal findings; Fall; Abnormal imaging test; Blunt trauma (contusions or hematomas); Bilateral; Pelvic region; Additional info: Fall, ? R ramus fracture TECHNIQUE: Imaging protocol: Computed tomography of the pelvis without contrast. Exam focused on the skeleton. Radiation optimization: All CT scans at this facility use at least one of these dose optimization techniques: automated exposure control; mA and/or kV adjustment per patient size (includes targeted exams where dose is matched to clinical indication); or iterative reconstruction. COMPARISON: CR XR PELVIS 1-2V 12/02/2024 2:30 AM FINDINGS: Intestine: The small bowel loops are not thickened and are nondilated. There is colonic diverticulosis but no evidence of diverticulitis. Urinary bladder: Moderate distension of the urinary bladder. No suggestion of a urinary bladder perforation. Bones/joints: There is a nondisplaced fracture through the right sacral ala. There is a comminuted and mildly displaced fracture through the right pubic tubercle and right pubic arch. There is normal anatomic alignment of each hip. No evidence of a hip fracture on either side. There is chronic degenerative disc disease at L5-S1. There is a small, wispy hematoma surrounding the right pubic tubercle fracture. Soft tissues: Unremarkable. IMPRESSION: 1. Nondisplaced right sacral ala fracture. 2. Comminuted and mildly displaced fracture through the right pubic tubercle and right pubic arch with associated minimal, wispy hematoma.
--- NOTE | 2024-12-02 04:06 | XR_ITS ---
PROCEDURE INFORMATION: Exam: XR Left Clavicle, Complete Exam date and time: 12/02/2024 4:58 AM Age: 89 years old Clinical indication: Injury or trauma; Fall; Blunt trauma (contusions or hematomas); Shoulder; Left; Additional info: Pain distal end TECHNIQUE: Imaging protocol: Radiologic exam of the left clavicle. Complete exam. Views: Any number of views. COMPARISON: CR XR SHOULDER LT MIN 2V 10/15/2024 2:19 PM FINDINGS: Bones/joints: There is normal anatomic alignment of the left shoulder. No evidence of a fracture or destructive bone lesion. There are mild chronic degenerative changes of the left acromioclavicular joint. The left upper ribs are intact. Soft tissues: Normal. 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
[2024-12-02 04:47] LABS: Microscopic, Urine URINE MICROSCOPIC (MICROSCOPIC)
[2024-12-02 04:48] LABS: Appearance,Urine CLEAR (Clear); Bilirubin,Urine Negative (Negative); Blood, Urine Negative (Negative); Color,Urine YELLOW (Yellow); Glucose,Urine (UA) Negative (Negative); Ketones,Urine Negative (Negative); Leukocyte Esterase,Urine Negative (Negative); Nitrate,Urine Negative (Negative); Protein,Urine Negative (Negative); Specific Gravity, Urine 1.015 (1.005-1.030); Urobilinogen,Urine 0.2 EU/dl (0.2)
[2024-12-02 04:55] LABS: Anion Gap 10.1 mEq/L (5-15); Blood Urea Nitrogen 19 mg/dl (7-17); Calcium 10.8 mg/dl (8.4-10.2); Carbon Dioxide 28 mmol/L (22.0-30.0); Chloride 90 mmol/L (98-107); Creatinine Clearance Estimated 42 mL/min (50-200); Estimated Glomerular Filt Rate 68 ml/min (>60); GFR (African American) 82 ML/MIN (>60); Glucose 104 mg/dl (74-100); Potassium 5.1 mmoL/L (3.5-5.1); Sodium 123 mmol/L (136-145)
[2024-12-02 05:06] LABS: Squamous Epithelial Cell,Urine Occasional #/hpf (0-5)
--- NOTE | 2024-12-02 05:48 | PC.NURSE ---
[facility] called for transfer.
--- NOTE | 2024-12-02 06:09 | PC.NURSE ---
Report given to VILMA Peterson at [facility]
--- NOTE | 2024-12-02 06:16 | PC.NURSE ---
EMS has been called for transport.
== END 2024-12-02 06:36 | disposition short-term general hospital (02) ==
PROVIDERS: Emergency Provider Emergency Medicine
DX: S32.599A Other specified fracture of unspecified pubis, initial encounter for closed fracture (principal); M54.9 Dorsalgia, unspecified; M54.2 Cervicalgia; M25.551 Pain in right hip; M25.552 Pain in left hip; R68.84 Jaw pain; W19.XXXA Unspecified fall, initial encounter
CPT/HCPCS: 70450; 70486; 70498; 71045; 72125; 72170; 72192; 73000; 80048; 80053; 81001; 85025; 85610; 93005; 96360; 99285; J7120; Q9967

== ENCOUNTER 2024-12-25 12:02 | Outpatient (CLI) | payer MEDICARE, SELFPAY ==
--- OUTSIDE RECORDS SUMMARY | 2024-12-25 12:06 | XMS_ITS ---
Author Organization Unknown TREATMENT PLAN [facility] Start Date Provider Encounter for Check-up [id number] [facility]
--- NOTE | 2024-12-25 12:10 | XR_ITS ---
FINAL REPORT CLINICAL HISTORY: FRACTURE OF ISCHISM AND SACRUM COMPARISON: CT pelvis dated 12/02/2024 FINDINGS: PELVIS 2 views of the pelvis were obtained. There is a subacute fracture of the right pubis. The known right sacral fracture is not well-appreciated on this exam. There is no additional acute osseous abnormality. No acute soft tissue abnormality is seen. IMPRESSION: Subacute fracture of the right pubis. Known right sacral fracture is not well-appreciated. No acute osseous abnormality. Reviewed, Interpreted and Dictated by Sherine Armendariz MD Transcribed by Mary Jo Fong Authenticated and [facility]
--- NOTE | 2024-12-25 12:10 | XR_ITS ---
FINAL REPORT CLINICAL HISTORY: pain, fx of sacrum FINDINGS: AP, lateral, and oblique views of the lumbar spine were obtained. There is no acute fracture or acute malalignment. 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 There is multilevel degenerative disc disease most pronounced at L1-2. . No acute paraspinal abnormality is identified. IMPRESSION: Degenerative changes with no acute osseous abnormalities of the lumbar spine. Reviewed, Interpreted and Dictated by Sherine Armendariz MD Transcribed by Mary Jo Fong Authenticated and [facility]
== END 2024-12-25 23:59 | disposition home or self-care (01) ==
LOC: RAD 12:04
PROVIDERS: PCP Family Medicine; Visit Provider Family Medicine
DX: R52 Pain, unspecified (principal); S32.10XA Unspecified fracture of sacrum, initial encounter for closed fracture; S32.601A Unspecified fracture of right ischium, initial encounter for closed fracture
CPT/HCPCS: 72110; 72170